=== PATIENT | male | born 1960 | race Caucasian/White ===

== ENCOUNTER 2017-02-08 13:27 | Inpatient (IN) | payer MEDICAID ==
--- NOTE | 2017-02-08 13:28 | EDPHY ---
H & P Constitutional: Initial Vital Signs Temperature (C) 37.8 C 02/08/17 13:28 Heart Rate 109 H 02/08/17 13:28 Respiratory Rate 22 H 02/08/17 13:28 Blood Pressure 156/78 H 02/08/17 13:28 O2 Sat (%) 80 L 02/08/17 13:28 O2 Delivery Mode Non-Rebreather Mask O2 (L/minute) 15 Allergies/Adverse Reactions: No Known Allergies Allergy (Unverified 08/09/16 18:41) Home Medications: Medication Instructions Recorded Albuterol Hfa Anes Only [Proair 2 puffs IH QID PRN #1 mdi 08/09/16 Hfa Anes Only] Azithromycin [Zithromax 250 mg 250 mg PO DAILY #6 tab 08/09/16 tab(RX)] Haldol 08/09/16 [place] Carbonate 08/09/16 Toradol 08/09/16 predniSONE 20 mg PO DAILY #11 tab 08/09/16 Medical Decision Making - Diagnostics Imaging: Discussed imaging studies w/ call center nurse Radiologist, I viewed and interpreted images myself - Diagnostics Imaging Results: Imaging Impressions Head CT 02/08/17 13:33 Impression: 1. Less than optimal study due to patient motion. Consider repeating this study when the patient is clinically able. 2. Small ventricular system raises the possibility of diffuse cerebral edema. 3. Bilateral exophthalmos, likely related to abundant intraorbital fat. 4. Right superior eyelid swelling. 5. Sinus disease. Results called to Dr. Andi West at 2:23 PM General information for patients regarding this examination can be found at [email or web address] If you have questions or comments about this report, please contact me at (hospital) or [phone] (cell). Chest X-Ray 02/08/17 14:29 Impression: 1. Less than optimal exam. Cannot exclude early CHF with interstitial pulmonary edema. Cannot exclude early left basilar pneumonia or mediastinal widening. The trachea appears thin and nodular. Does the patient have difficulty breathing? Results discussed with Dr. Andi West at 15:04 PM Procedures: Procedure: Conscious sedation. Indication: Lumbar puncture, altered mental status The patient is an appropriate candidate to tolerate procedural sedation. The patient's vital signs and mental status are appropriate. The risks, benefits and alternatives of the sedation were discussed with the patient. The patient is ASA classification 2. The patient's Mallampati airway score was 3 and the patient [did] meet the 3-3-2 airway measurements. A time out was completed. The patient was sedated with 100 mg of ketamine. The patient was monitored with continuous pulse oximetry, classroom monitor and end tidal CO2. [There were no complications and no significant hypoxemia.] I performed [both the sedation and the procedure.] The total time I spent at the bedside during the procedural sedation was 18 minutes minutes. The patient was examined after the procedural sedation and has returned to their pre-sedation baseline. Procedure: Lumbar puncture. Indication: Altered mental status, rule out meningitis After verbal informed consent from patient explaining the risks including infection, bleeding, and neurologic damage, a lumbar puncture was performed after the patient was prepped and draped in the usual fashion. The back was anesthetized with 1% lidocaine. Approximately 4 cc of clear fluid was obtained. Opening pressure [was not] obtained. There were no complications. The procedure was performed by myself. (Ryland West) ED Course/Re-evaluation: CHIEF COMPLAINT: Altered mental status HISTORY OF PRESENT ILLNESS: The patient is a 56 y/o male arriving via EMS after he was found outside psychiatric facility with altered mentation. He refused to speak with EMS throughout their contact, but would follow commands without issue. EMS noted a cough and SpO2 around 80%, which improved after a duo neb. They gave Narcan without any change in status. He appears somnolent and is noncontributory during assessment. REVIEW OF SYSTEMS: A 10 point review of systems was performed and is negative with the exception of the elements mentioned in the history of present illness. PHYSICAL EXAM: General Appearance: Somnolent, malodorous, unkempt, nonverbal. Head: Atraumatic without scalp tenderness or obvious injury Eyes: Pupils equal, round, reactive to light and accommodation, EOMI, no trauma , no injection. Ears: Clear bilaterally, no perforation, normal landmarks Nose: Atraumatic, no rhinorrhea, clear. Throat: There is no erythema or exudates, no lesions, normal tonsils, mucus membranes moist. Neck: Supple, nontender, no lymphadenopathy. Respiratory: No retractions, no distress, no wheezes, and no accessory muscle use. Lungs are clear to auscultation bilaterally. Cardiovascular: Regular rate and rhythm, no murmurs, rubs, or gallops. Good capillary refill all extremities. Gastrointestinal: Abdomen is soft, nontender, non-distended, no masses, no rebound, no guarding, no peritoneal signs. Musculoskeletal: Normal active ROM of all extremities, atraumatic. Neurological: Will follow commands, but is not speaking. Moving all 4 extremities. Skin: No rashes, good turgor, no nodules on palpation. PAST MEDICAL HISTORY: Unknown PAST SURGICAL HISTORY: Unknown SOCIAL HISTORY: Unknown. Appears homeless. Found outside psychiatric facility. DIFFERENTIAL DIAGNOSIS: The differential diagnosis for the patient's altered mental status included but was not limited to hypoglycemia, infectious process, electrolyte abnormality, head injury, neurologic process, anemia, cardiac process, and intoxicants. MEDICAL DECISION MAKING: This is an unkempt 56 y/o male who presents with altered mentation. He will follow commands, but is currently non-verbal and somnolent. Plan for full AMS work up including labs, UA, tox screen, and head CT. RN states patient is unable to sit or lie still. IV Versed administered. Hct elevated at 58, which could indicate dehydrations. Patient care signed over to Dr. West at shift change pending lab and imaging results. ([employer] De [employer]) Differential Diagnosis: Differential diagnosis considered includes stroke, intracranial hemorrhage, medication side effect, rhabdomyolysis, meningitis, encephalitis, pneumonia, sepsis, severe sepsis (Ryland West) Other Provider: I assumed care of the patient at 2:00 p.m. The patient was evaluated by Dr. De Leon who ordered a number of test. The [place] I [place] [id number]. The patient had a CT scan of the head which was nondiagnostic secondary to motion artifact. There was small ventricles noted, no obvious hemorrhage was present. Images reviewed by myself and discussed with radiologist Dr. Carlos. I reviewed the results of the head CT scan with our on-call neurosurgeon Dr. Condon who feels that there is no evidence of critical increased ICP present and there is not a contraindication to perform a lumbar puncture. Chest x-ray confirms the possibility of fluid overload verses a left lower lobe infiltrate. I ordered an ABG and interpreted that. The patient does have a respiratory acidosis. I have ordered that BiPAP be started on the patient. Secondary to the patient's altered mental status and encephalopathy. I did perform a lumbar puncture to evaluate for meningitis. This was performed by myself after the patient received conscious sedation with ketamine. The patient did receive IV ceftriaxone and vancomycin. The patient will require admission to the intensive care unit for further evaluation of his critical encephalopathy. Critical care time exclusive of procedures and exclusive of the PA's time was 45 minutes, performed by myself, Ryland West MD. (Ryland West) - Data Points Laboratory Results: Laboratory Results 02/08/17 13:35 02/08/17 13:35 02/08/17 02/08/17 02/08/17 14:06 13:39 13:35 WBC RBC Hgb POC Hgb 19.7 gm/dL H gm/dL (13.7-17.5) Hct POC Hct 58 % H % (40-51) MCV MCH MCHC RDW Plt Count MPV Neut % (Auto) Lymph % (Auto) [place] % (Auto) Eos % (Auto) Baso % (Auto) Nucleat RBC Rel Count Absolute Neuts (auto) Absolute Lymphs (auto) Absolute Monos (auto) Absolute Eos (auto) Absolute Basos (auto) Absolute Nucleated RBC Immature Gran % Seg Neutrophils % Band Neutrophils % Lymphocytes % Monocytes % Eosinophils % Metamyelocytes % Immature Gran # Absolute Seg Neuts Absolute Band Neuts Absolute Lymphocytes Absolute Monocytes Absolute Eosinophils Absolute Metamyelocyte Toxic Granulation Platelet Estimate Polychromasia Oval Macrocytes PT INR APTT VBG Lactic Acid 0.9 mmol/L mmol/L (0.7-2.1) POC Sodium 149 mEq/L H mEq/L (134-144) Sodium POC Potassium 4.1 mEq/L mEq/L (3.3-5.0) Potassium POC Chloride 106 mEq/L mEq/L (97-110) Chloride Carbon Dioxide Anion Gap POC BUN 15 mg/dL mg/dL (7-23) BUN Creatinine POC Creatinine 1.4 mg/dL H mg/dL (0.7-1.3) Estimated GFR Glucose POC Glucose 155 mg/dL H mg/dL (70-100) Calcium Total Bilirubin Conjugated Bilirubin Unconjugated Bilirubin AST ALT Alkaline Phosphatase Creatine Kinase Total Protein Albumin TSH Cancelled [place] Ethyl Alcohol 02/08/17 02/08/17 02/08/17 13:35 13:35 13:35 WBC RBC Hgb POC Hgb Hct POC Hct MCV MCH MCHC RDW Plt Count MPV Neut % (Auto) Lymph % (Auto) [place] % (Auto) Eos % (Auto) Baso % (Auto) Nucleat RBC Rel Count Absolute Neuts (auto) Absolute Lymphs (auto) Absolute Monos (auto) Absolute Eos (auto) Absolute Basos (auto) Absolute Nucleated RBC Immature Gran % Seg Neutrophils % Band Neutrophils % Lymphocytes % Monocytes % Eosinophils % Metamyelocytes % Immature Gran # Absolute Seg Neuts Absolute Band Neuts Absolute Lymphocytes Absolute Monocytes Absolute Eosinophils Absolute Metamyelocyte Toxic Granulation Platelet Estimate Polychromasia Oval Macrocytes PT 13.4 SEC SEC (12.0-15.0) INR 1.03 (0.83-1.16) APTT 27.8 SEC SEC (23.0-38.0) VBG Lactic Acid POC Sodium Sodium POC Potassium Potassium POC Chloride Chloride Carbon Dioxide Anion Gap POC BUN BUN Creatinine POC Creatinine Estimated GFR Glucose POC Glucose Calcium Total Bilirubin Conjugated Bilirubin Unconjugated Bilirubin AST ALT Alkaline Phosphatase Creatine Kinase 175 IU/L IU/L (0-224) Total Protein Albumin TSH [place] 0.5 mEq/L L mEq/L (0.6-1.2) Ethyl Alcohol 02/08/17 02/08/17 13:35 13:35 WBC 26.67 10^3/uL H 10^3/uL (3.80-9.50) RBC 5.73 10^6/uL 10^6/uL (4.40-6.38) Hgb 17.7 g/dL H g/dL (13.7-17.5) POC Hgb Hct 56.7 % H % (40.0-51.0) POC Hct MCV 99.0 fL fL (81.5-99.8) MCH 30.9 pg pg (27.9-34.1) MCHC 31.2 g/dL L g/dL (32.4-36.7) RDW 13.7 % % (11.5-15.2) Plt Count 286 10^3/uL 10^3/uL (150-400) MPV 11.3 fL fL (8.7-11.7) Neut % (Auto) Not Reported Lymph % (Auto) Not Reported [place] % (Auto) Not Reported Eos % (Auto) Not Reported Baso % (Auto) Not Reported Nucleat RBC Rel Count 0.2 % % (0.0-0.2) Absolute Neuts (auto) Not Reported Absolute Lymphs (auto) Not Reported Absolute Monos (auto) Not Reported Absolute Eos (auto) Not Reported Absolute Basos (auto) Not Reported Absolute Nucleated RBC 0.06 10^3/uL H 10^3/uL (0-0.01) Immature Gran % Not Reported Seg Neutrophils % 87 % % Band Neutrophils % 2 % % Lymphocytes % 6 % % Monocytes % 2 % % Eosinophils % 1 % % Metamyelocytes % 2 % % Immature Gran # Not Reported Absolute Seg Neuts 23.20 10^/uL H 10^/uL (1.70-6.50) Absolute Band Neuts 0.53 10^3/uL 10^3/uL (0.00-0.70) Absolute Lymphocytes 1.60 10^3/uL 10^3/uL (1.00-3.00) Absolute Monocytes 0.53 10^3/uL 10^3/uL (0.30-0.80) Absolute Eosinophils 0.27 10^3/uL 10^3/uL (0.03-0.40) Absolute Metamyelocyte 0.53 10^3/mL H 10^3/mL (0.00-0.00) Toxic Granulation PRESENT H Platelet Estimate ADEQUATE (ADEQ) Polychromasia 1+ H Oval Macrocytes 1+ H PT INR APTT VBG Lactic Acid POC Sodium Sodium 147 mEq/L H mEq/L (134-144) POC Potassium Potassium 4.2 mEq/L mEq/L (3.5-5.2) POC Chloride Chloride 108 mEq/L mEq/L (97-110) Carbon Dioxide 27 mEq/l mEq/l (22-31) Anion Gap 12 mEq/L mEq/L (8-16) POC BUN BUN 14 mg/dL mg/dL (7-23) Creatinine 1.4 mg/dL H mg/dL (0.7-1.3) POC Creatinine Estimated GFR 52 Glucose 144 mg/dL H mg/dL (70-100) POC Glucose Calcium 10.1 mg/dL mg/dL (8.5-10.4) Total Bilirubin 0.7 mg/dL mg/dL (0.1-1.4) Conjugated Bilirubin 0.6 mg/dL H mg/dL (0.0-0.5) Unconjugated Bilirubin 0.1 mg/dL mg/dL (0.0-1.1) AST 28 IU/L IU/L (17-59) ALT 53 IU/L IU/L (21-72) Alkaline Phosphatase 136 IU/L H IU/L (38-126) Creatine Kinase Total Protein 7.4 g/dL g/dL (6.3-8.2) Albumin 4.4 g/dL g/dL (3.5-5.0) TSH 0.622 uIU/mL uIU/mL (0.465-4.680) [place] Ethyl Alcohol < 10 mg/dL mg/dL (0-10) Medications Given: Discontinued Medications Sodium Chloride (Ns) 1,000 mls @ 0 mls/hr IV ONCE ONE; Wide Open PRN Reason: Protocol Stop: 02/08/17 13:32 Last Admin: 02/08/17 13:31 Dose: 1,000 mls Ceftriaxone Sodium 2 gm/ (Dextrose) 50 mls @ 100 mls/hr IV EDNOW ONE PRN Reason: Protocol Stop: 02/08/17 14:55 Last Admin: 02/08/17 15:01 Dose: 50 mls Vancomycin/Sodium Chloride (Vancomycin 1 Gm (Premix)) 250 mls @ 250 mls/hr IV EDNOW ONE PRN Reason: Protocol Stop: 02/08/17 15:25 Last Admin: 02/08/17 14:30 Dose: 250 mls Midazolam HCl (Versed) 2 mg IVP EDNOW ONE Stop: 02/08/17 14:12 Last Admin: 02/08/17 14:17 Dose: 2 mg Point of Care Test Results: 02/08/17 13:39 POC Sodium 149 H POC Potassium 4.1 POC Chloride 106 POC BUN 15 POC Creatinine 1.4 H POC Glucose 155 H Departure - Departure Disposition: [facility] Acute Clinical Impression: Pneumonia, Hypoxemia, Bipolar mood disorder Altered mental status Qualifiers: Altered mental status type: unspecified Qualified Code(s): R41.82 - Altered mental status, unspecified Condition: Critical Report Scribed for: [employer] De Leon Report Scribed by: Lorenza Swanson Time of Report: 13:40
[2017-02-08] MEDS ORDERED: NS 1,000 ML IV ONE ×3 (13:31→18:30)
--- NOTE | 2017-02-08 13:43 | CPEKG ---
Heart Rate: 107 RR Interval: 561 P-R Interval: 188 QRSD Interval: 122 QT Interval: 352 QTC Interval: 470 P Alvo: 59 QRS [place]: 96 T Wave [place]: 22 EKG Severity - ABNORMAL ECG - EKG Impression: SINUS TACHYCARDIA EKG Impression: ABERRANT COMPLEX, POSSIBLY SUPRAVENTRICULAR EKG Impression: RBBB AND LPFB Electronically Signed By: [employer] De Leon 08-Feb-2017 14:01:43
[2017-02-08] MEDS ORDERED: MIDAZOLAM 2 MG/2 ML VIAL ONE (13:44)
[2017-02-08 13:55] LABS: ABSOLUTE NRBC COUNT 0.06 10^3/uL (0-0.01); ADD DIFF? YES; ADD MORPH? NO; ADD SCAN? NO; ATYPICAL LYMPHOCYTE FLAG 10 (0-99); FRAGMENT RBC FLAG 0 (0-99); HEMATOCRIT 56.7 % (40.0-51.0); HEMOGLOBIN 17.7 g/dL (13.7-17.5); LEFT SHIFT FLG 40 (0-99); LIPEMIA HEMOLYSIS FLAG 80 (0-99); MEAN CELL HEMOGLOBIN 30.9 pg (27.9-34.1); MEAN CELL HEMOGLOBIN CONCENTR. 31.2 g/dL (32.4-36.7); MEAN PLATELET VOLUME 11.3 fL (8.7-11.7); NRBC-AUTO% 0.2 % (0.0-0.2); PLATELET CLUMPS FLAG 10 (0-99); PLATELET COUNT 286 10^3/uL (150-400); RED BLOOD CELL COUNT 5.73 10^6/uL (4.40-6.38); RED CELL DISTRIBUTION WIDTH 13.7 % (11.5-15.2)
[2017-02-08 14:04] LABS: INR 1.03 (0.83-1.16); PROTIME(PATIENT) 13.4 SEC (12.0-15.0)
[2017-02-08 14:05] LABS: APTT 27.8 SEC (23.0-38.0)
[2017-02-08 14:06] LABS: LITHIUM 0.5 mEq/L (0.6-1.2)
[2017-02-08 14:08] LABS: ALANINE AMINOTRANSFERASE 53 IU/L (21-72); ALBUMIN 4.4 g/dL (3.5-5.0); ALKALINE PHOSPHATASE 136 IU/L (38-126); ANION GAP 12 mEq/L (8-16); ASPARTATE AMINOTRANSFERASE 28 IU/L (17-59); BILIRUBIN,TOTAL 0.7 mg/dL (0.1-1.4); BILIRUBIN-CONJUGATED 0.6 mg/dL (0.0-0.5); BILIRUBIN-UNCONJUGATED 0.1 mg/dL (0.0-1.1); CALCIUM 10.1 mg/dL (8.5-10.4); CARBON DIOXIDE 27 mEq/l (22-31); CHLORIDE 108 mEq/L (97-110); CREATININE 1.4 mg/dL (0.7-1.3); ETHANOL SERUM < 10 mg/dL (0-10); GLOMERULAR FILTRATION RATE 52; GLUCOSE 144 mg/dL (70-100); POTASSIUM 4.2 mEq/L (3.5-5.2); SODIUM 147 mEq/L (134-144); TOTAL PROTEIN 7.4 g/dL (6.3-8.2)
[2017-02-08] MEDS ORDERED: MIDAZOLAM 2 MG/2 ML VIAL IVP ONE ×2 (14:11→18:15)
[2017-02-08] MEDS ORDERED: cefTRIAXone 2 GM in D5W 50 ML IV ONE (14:26)
[2017-02-08] MEDS ORDERED: VANCOMYCIN HCL/NORMAL SALINE 250 ML IV ONE (14:26)
[2017-02-08 14:46] LABS: MACROCYTES 1+; PLATELET ESTIMATE ADEQUATE (ADEQ); POLYCHROMASIA 1+; TOXIC GRANULATION PRESENT
[2017-02-08] MEDS ORDERED: KETAMINE 100 MG/10 ML SYR ONE ×2 (14:52→15:25)
[2017-02-08] MEDS ORDERED: KETAMINE 100 MG/10 ML SYR IVP ONE (15:05)
[2017-02-08 15:09] LABS: BASE EXCESS -2.4 mEq/L (-2.5-2.5); BICARBONATE 29 mEq/L (22-26); MEASURED OXYGEN SATURATION 97 % (92-95); PO2 97 mmHg (65-75); TCO2 31 mEq/L (23-27)
[2017-02-08 15:13] LABS: PCO2 78 mmHg (34-38)
[2017-02-08] MEDS ORDERED: KETAMINE 500 MG/10 ML VIAL IVP ONE (15:25)
[2017-02-08 15:56] LABS: PROTEIN, CSF 37 mg/dL (12-60)
[2017-02-08] MEDS ORDERED: ACETAMINOPHEN 650 MG SUPP PR PRN (16:02)
[2017-02-08 16:06] LABS: COLOR YELLOW; LEUKOCYTE ESTERASE,URINE NEGATIVE (NEGATIVE); NITRITE,URINE NEGATIVE (NEGATIVE)
[2017-02-08] MEDS ORDERED: ALBUTEROL 3 ML DEYVIAL IH PRN (16:06)
[2017-02-08 16:13] LABS: BACTERIA TRACE /hpf (NONE SEEN); MUCUS TRACE /lpf (NONE-1+)
[2017-02-08] MEDS ORDERED: NS 1,000 ML IV SCH (16:15)
[2017-02-08 16:16] LABS: CSF APPEARANCE CLEAR (CLEAR); CSF COLOR COLORLESS (COLORLESS); CSF SUPERNATANT COLORLESS (COLORLESS); WBC, CSF 0 /mm3 (0-5); WBC, CSF 5 /mm3 (0-5)
[2017-02-08 16:58] LABS: BASE EXCESS -4.1 mEq/L (-2.5-2.5); BICARBONATE 28 mEq/L (22-26); MEASURED OXYGEN SATURATION 97 % (92-95); PO2 102 mmHg (65-75); TCO2 31 mEq/L (23-27)
[2017-02-08 17:00] LABS: BIPAP YES; EXP PRESSURE 8; INSP PRESSURE 18; O2 CONCENTRATIION 75 % (0-100); P/F RATIO 136 RATIO
[2017-02-08] MEDS: IPRATROPIUM/ALBUTEROL 3 ML DEYVIAL IH SCH (17:00)
[2017-02-08 17:02] LABS: PCO2 85 mmHg (34-38)
[2017-02-08 17:02] LABS: TROPONIN I 0.081 ng/mL (0-0.034)
[2017-02-08] MEDS ORDERED: LIDOCAINE 1% 300 MG/30 ML SDV ONE (17:20)
[2017-02-08] MEDS ORDERED: LIDOCAINE 2% JELLY 5 ML TUBE ONE (17:20)
[2017-02-08] MEDS ORDERED: ALTEPLASE 2 MG VIAL IVP PRN (17:51)
[2017-02-08] MEDS ORDERED: PIPERACILLIN/TAZO 3.375 GM/DEX 50 ML IV SCH (18:00)
[2017-02-08] MEDS: PROPOFOL/EMULSION 100 ML IV SCH (18:13)
[2017-02-08] MEDS: fentaNYL/NACL 100 ML IV SCH (18:13)
[2017-02-08] MEDS ORDERED: fentaNYL 100 MCG/2 ML INJ IVP ONE (18:15)
[2017-02-08] MEDS ORDERED: LIDOCAINE 1% 300 MG/30 ML SDV MISC ONE (18:22)
[2017-02-08] MEDS ORDERED: LIDOCAINE 2% JELLY 5 ML TUBE TP ONE (18:22)
--- NOTE | 2017-02-08 18:28 | PDGENHP ---
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 Patient remains unresponsive and altered at the time of my evaluation and therefore entire history is obtained per chart review and hx obtained from EMT and ED. Apparently when EMT arrived to assess patient he was found to be hypoxic to 80%, somnolent and minimally responsive. He was following commands at that time and moving spontaneously as well as protecting his airway. In the ER he remained somnolent, unresponsive, intermittently agitated. He was noted to have diffuse infiltrates on cxr and wbc of 26K. He was started on abx, and given his continued MS changes, an LP was performed. Blood gas was revealing for PCO2 of 75, he was transferred to ICU on Bipap. Repeat ABG after 1 hour on bipap showed PCO2 of 85 and worsening mental status, no longer protecting his airway and noted to be much more somnolent after receiving sedation for the LP. Patient required urgent intubation and bronchoscopy by Dr. Macdonald at that point. During the bronch it was noted that patients epiglottis was edematous and somewhat friable and thick secretions were present as well. History Information - Allergies/Home Medication List Allergies/Adverse Reactions: No Known Allergies Allergy (Unverified 08/09/16 18:41) Home Medications: Haldol 08/09/16 [Last Taken Unknown] Gargatha Carbonate 08/09/16 [Last Taken Unknown] Toradol 08/09/16 [Last Taken Unknown] I have personally reviewed and updated: family history, medical history, social history, surgical history - Past Medical History psychiatric history (schizophrenia/bipolar) Additional medical history: congenital deafness. RAD vs copd - Surgical History Additional surgical history: not available per chart review - Family History Additional family history: unavailable per chart review - Social History Smoking Status: Heavy smoker Additional social history: unable to obtain, reportedly homeless, unknown if drug/alcohol hx Review of Systems Review of Systems: unobtainable 2/2 patients mental status Physical Exam Temp Pulse Resp BP Pulse Ox 37.7 C 73 20 147/77 H 100 02/08/17 16:00 02/08/17 16:00 02/08/17 16:00 02/08/17 16:00 02/08/17 16:00 O2 (L/minute) [Post Procedure 10 1st] O2 (L/minute) [Procedural 5th] 15 O2 (L/minute) [Procedural 4th] 15 O2 (L/minute) [Procedural 3rd] 15 O2 (L/minute) [Procedural 2nd] 15 O2 (L/minute) [Procedural 1st] 15 O2 (L/minute) [.Immediate Pre- 10 Procedure] O2 (L/minute) 15 FIO2 (%) 100 Constitutional: obese, uncomfortable, unkempt Eyes: anicteric sclera, scleral injection, other (proptosis ) Ears, Nose, Mouth, Throat: moist mucous membranes, poor dentition Cardiovascular: regular rate and rhythym, no murmur, rub, or gallop, edema Respiratory: reduced air movement, expiratory wheeze, respiratory distress Gastrointestinal: normoactive bowel sounds, soft, non-tender abdomen Genitourinary: no bladder tenderness, bonilla in urethra, other (normal external male genitalia) Skin: warm, normal color, other (varicose veins to thighs) Musculoskeletal: full muscle strength, No asymmetric calves Neurologic: other (prior to sedation moving all 4, responding to commands), No AAOx3 Lab Data & Imaging Review 02/08/17 13:35 02/08/17 13:35 WBC 26.67 10^3/uL (3.80-9.50) H 02/08/17 13:35 RBC 5.73 10^6/uL (4.40-6.38) 02/08/17 13:35 Hgb 17.7 g/dL (13.7-17.5) H 02/08/17 13:35 POC Hgb 19.7 gm/dL (13.7-17.5) H 02/08/17 13:39 Hct 56.7 % (40.0-51.0) H 02/08/17 13:35 POC Hct 58 % (40-51) H 02/08/17 13:39 MCV 99.0 fL (81.5-99.8) 02/08/17 13:35 MCH 30.9 pg (27.9-34.1) 02/08/17 13:35 MCHC 31.2 g/dL (32.4-36.7) L 02/08/17 13:35 RDW 13.7 % (11.5-15.2) 02/08/17 13:35 Plt Count 286 10^3/uL (150-400) 02/08/17 13:35 MPV 11.3 fL (8.7-11.7) 02/08/17 13:35 Neut % (Auto) Not Reported 02/08/17 13:35 Lymph % (Auto) Not Reported 02/08/17 13:35 [place] % (Auto) Not Reported 02/08/17 13:35 Eos % (Auto) Not Reported 02/08/17 13:35 Baso % (Auto) Not Reported 02/08/17 13:35 Nucleat RBC Rel Count 0.2 % (0.0-0.2) 02/08/17 13:35 Absolute Neuts (auto) Not Reported 02/08/17 13:35 Absolute Lymphs (auto) Not Reported 02/08/17 13:35 Absolute Monos (auto) Not Reported 02/08/17 13:35 Absolute Eos (auto) Not Reported 02/08/17 13:35 Absolute Basos (auto) Not Reported 02/08/17 13:35 Absolute Nucleated RBC 0.06 10^3/uL (0-0.01) H 02/08/17 13:35 Immature Gran % Not Reported 02/08/17 13:35 Seg Neutrophils % 87 % 02/08/17 13:35 Band Neutrophils % 2 % 02/08/17 13:35 Lymphocytes % 6 % 02/08/17 13:35 Monocytes % 2 % 02/08/17 13:35 Eosinophils % 1 % 02/08/17 13:35 Metamyelocytes % 2 % 02/08/17 13:35 Immature Gran # Not Reported 02/08/17 13:35 Absolute Seg Neuts 23.20 10^/uL (1.70-6.50) H 02/08/17 13:35 Absolute Band Neuts 0.53 10^3/uL (0.00-0.70) 02/08/17 13:35 Absolute Lymphocytes 1.60 10^3/uL (1.00-3.00) 02/08/17 13:35 Absolute Monocytes 0.53 10^3/uL (0.30-0.80) 02/08/17 13:35 Absolute Eosinophils 0.27 10^3/uL (0.03-0.40) 02/08/17 13:35 Absolute Metamyelocyte 0.53 10^3/mL (0.00-0.00) H 02/08/17 13:35 Toxic Granulation PRESENT H 02/08/17 13:35 Platelet Estimate ADEQUATE (ADEQ) 02/08/17 13:35 Polychromasia 1+ H 02/08/17 13:35 Oval Macrocytes 1+ H 02/08/17 13:35 PT 13.4 SEC (12.0-15.0) 02/08/17 13:35 INR 1.03 (0.83-1.16) 02/08/17 13:35 APTT 27.8 SEC (23.0-38.0) 02/08/17 13:35 Puncture Site LEFT BRACHIAL 02/08/17 16:50 Patient Temperature 37.0 DEGREES 02/08/17 16:50 pCO2 85 mmHg (34-38) H* 02/08/17 16:50 pO2 102 mmHg (65-75) H 02/08/17 16:50 Total CO2 31 mEq/L (23-27) H 02/08/17 16:50 ABG pH 7.15 (7.35-7.45) L* 02/08/17 16:50 ABG PO2/FiO2 Ratio 136 RATIO 02/08/17 16:50 ABG HCO3 28 mEq/L (22-26) H 02/08/17 16:50 ABG O2 Saturation 97 % (92-95) H 02/08/17 16:50 ABG Base Excess -4.1 mEq/L (-2.5-2.5) L 02/08/17 16:50 VBG Lactic Acid 0.9 mmol/L (0.7-2.1) 02/08/17 14:06 Total O2 Concentration 15.0 LITERS 02/08/17 14:48 O2 Concentration % 75 % (0-100) 02/08/17 16:50 Expiratory Pressure 8 02/08/17 16:50 Inspiratory Pressure 18 02/08/17 16:50 Mode BiPAP YES 02/08/17 16:50 POC Sodium 149 mEq/L (134-144) H 02/08/17 13:39 Sodium 147 mEq/L (134-144) H 02/08/17 13:35 POC Potassium 4.1 mEq/L (3.3-5.0) 02/08/17 13:39 Potassium 4.2 mEq/L (3.5-5.2) 02/08/17 13:35 POC Chloride 106 mEq/L (97-110) 02/08/17 13:39 Chloride 108 mEq/L (97-110) 02/08/17 13:35 Carbon Dioxide 27 mEq/l (22-31) 02/08/17 13:35 Anion Gap 12 mEq/L (8-16) 02/08/17 13:35 POC BUN 15 mg/dL (7-23) 02/08/17 13:39 BUN 14 mg/dL (7-23) 02/08/17 13:35 Creatinine 1.4 mg/dL (0.7-1.3) H 02/08/17 13:35 POC Creatinine 1.4 mg/dL (0.7-1.3) H 02/08/17 13:39 Estimated GFR 52 02/08/17 13:35 Glucose 144 mg/dL (70-100) H 02/08/17 13:35 POC Glucose 155 mg/dL (70-100) H 02/08/17 13:39 Calcium 10.1 mg/dL (8.5-10.4) 02/08/17 13:35 Total Bilirubin 0.7 mg/dL (0.1-1.4) 02/08/17 13:35 Conjugated Bilirubin 0.6 mg/dL (0.0-0.5) H 02/08/17 13:35 Unconjugated Bilirubin 0.1 mg/dL (0.0-1.1) 02/08/17 13:35 AST 28 IU/L (17-59) 02/08/17 13:35 ALT 53 IU/L (21-72) 02/08/17 13:35 Alkaline Phosphatase 136 IU/L (38-126) H 02/08/17 13:35 Creatine Kinase 175 IU/L (0-224) 02/08/17 13:35 Troponin I 0.081 ng/mL (0-0.034) H 02/08/17 16:30 Total Protein 7.4 g/dL (6.3-8.2) 02/08/17 13:35 Albumin 4.4 g/dL (3.5-5.0) 02/08/17 13:35 TSH 0.622 uIU/mL (0.465-4.680) 02/08/17 13:35 Urine Color YELLOW 02/08/17 15:17 Urine Appearance CLEAR 02/08/17 15:17 Urine pH 6.0 (5.0-7.5) 02/08/17 15:17 Ur Specific [place] 1.005 (1.002-1.030) 02/08/17 15:17 Urine Protein NEGATIVE (NEGATIVE) 02/08/17 15:17 Urine Ketones NEGATIVE (NEGATIVE) 02/08/17 15:17 Urine Blood NEGATIVE (NEGATIVE) 02/08/17 15:17 Urine Nitrate NEGATIVE (NEGATIVE) 02/08/17 15:17 Urine Bilirubin NEGATIVE (NEGATIVE) 02/08/17 15:17 Urine Urobilinogen NEGATIVE EU (0.2-1.0) 02/08/17 15:17 Ur Leukocyte Esterase NEGATIVE (NEGATIVE) 02/08/17 15:17 Urine RBC 1-3 /hpf (0-3) 02/08/17 15:17 Urine WBC 1-3 /hpf (0-3) 02/08/17 15:17 Ur Epithelial Cells TRACE /lpf (NONE-1+) 02/08/17 15:17 Urine Bacteria TRACE /hpf (NONE SEEN) H 02/08/17 15:17 Hyaline Casts 1-5 /lpf (0-1) 02/08/17 15:17 Urine Mucus TRACE /lpf (NONE-1+) 02/08/17 15:17 Urine Glucose NEGATIVE (NEGATIVE) 02/08/17 15:17 CSF Tube Number 1 02/08/17 15:30 CSF Appearance CLEAR (CLEAR) 02/08/17 15:30 CSF Color COLORLESS (COLORLESS) 02/08/17 15:30 CSF Supernatant COLORLESS (COLORLESS) 02/08/17 15:30 CSF WBC 5 /mm3 (0-5) 02/08/17 15:30 CSF RBC 58 /mm3 (0-0) H 02/08/17 15:30 CSF Neutrophils % 6 % (0-6) 02/08/17 15:30 CSF Lymphocytes % 40 % (0-100) 02/08/17 15:30 CSF Monos/Macrophage % 54 % (0-45) H 02/08/17 15:30 CSF Glucose 107 mg/dL (50-75) H 02/08/17 15:30 CSF Total Protein 37 mg/dL (12-60) 02/08/17 15:30 Urine Opiates Screen NEGATIVE (NEGATIVE) 02/08/17 15:17 Urine Barbiturates NEGATIVE (NEGATIVE) 02/08/17 15:17 Ur Phencyclidine Scrn NEGATIVE (NEGATIVE) 02/08/17 15:17 Ur Amphetamine Screen NEGATIVE (NEGATIVE) 02/08/17 15:17 U Benzodiazepines Scrn NEGATIVE (NEGATIVE) 02/08/17 15:17 Gargatha 0.5 mEq/L (0.6-1.2) L 02/08/17 13:35 Urine Cocaine Screen NEGATIVE (NEGATIVE) 02/08/17 15:17 U Marijuana (THC) Screen NEGATIVE (NEGATIVE) 02/08/17 15:17 Ethyl Alcohol < 10 mg/dL (0-10) 02/08/17 13:35 HSV Source Description Cancelled 02/08/17 15:30 HSV I DNA PCR Cancelled 02/08/17 15:30 HSV II DNA PCR Cancelled 02/08/17 15:30 Visualized and Interpreted Chest x-ray results: Yes Chest X-Ray results: infiltrate, other (limited exam but apparent bilateral interstitial edema vs infiltrate) Visualized and Interpreted imaging results: Yes Interpretation: head CT: small ventricles--? cerebral edema Visualized and Interpreted EKG results: Yes EKG Interpretation: Positive for: other (sinus tach, rbbb, lpfb) Assessment & Plan Assessment: 56 yo M with hx of schizophrenia, homelessness presenting with AMS and acute hypoxic/hypercarbic respiratory failure # acute hypoxic/hypercarbic respiratory failure: underlying etiology not entirely clear at this point but differential including pna, chf exacerbation, epiglottitis vs possible intoxication and mental status change leading to inability to protect airway. By OSH records patient has hx of RAD vs COPD as well likely contributing. He has now been intubated and bronch'ed--will repeat ABG now s/p intubation. Will get echo in am to determine if CHF contributing-- holding off on lasix given concurrent e/o sepsis # PNA: diffuse infiltrates noted on cxr, however this was a limited exam, also noted to have thick secretions on bronch with blood and sputum cultures currently pending. Has been started on ctx/vanc by ER and will continue for now. Can dc vanc so long as cultures negative for MRSA in coming days. # ? epiglottitis: as above, would be covered by ctx and cultures pending # acute encephalopathy: unclear what led to initial presentation of being altered--? respiratory distress versus sepsis vs intoxication though utox negative. He does have congenital deafness as well as underlying mental illness as well and hx of non compliance with psych meds also possibly contributing. Will monitor. Head CT limited by motion with ? of diffuse cerebral edema which would be at this point inconsistent with exam. If no improvement would repeat imaging in am. # severe sepsis: meeting sirs criteria and end organ dysfunction requiring intubation, however lactic acid normal and patient HD stable. Will check prolactin. # lauryn: in setting of above and presumably pre renal, IVF and recheck in am # leukocytosis: quite significantly high at 26K, will also check c diff, in setting of presumed infection as above # polycythemia: with long time smoking hx presumably 2/2 chronic hypoxia, trending # schizophrenia/bipolar: outside records reviewed and noted to have prior hx of med non compliance as well, unable to assess for decompensation currently # IP status, critically ill requiring emergent intubation and ICU level care Patient new to my care. Old records reviewed and summarized as above. Care plan reviewed with ER doctor and Dr. Villela. > 60 minutes of direct critical care time spent in evaluation/interpretation of labs, imaging, discussion with staff
[2017-02-08] MEDS: methylPREDNISolone SOD SUCC 125 MG/2 ML VIAL IVP SCH ×2 (18:32→23:45)
[2017-02-08] MEDS: NS 1,000 ML IV SCH ×2 (18:33→20:05)
[2017-02-08 19:27] LABS: T3 (TRIIODOTHYRONINE) TOTAL 1.19 ng/mL (0.970-1.690)
[2017-02-08] MEDS: CHLORHEXIDINE GLUCONATE 15 ML UDL PO SCH (20:09)
[2017-02-08 20:13] LABS: PROCALCITONIN 0.16 ng/mL (0.02-0.10)
[2017-02-08 20:29] LABS: BASE EXCESS -3.6 mEq/L (-2.5-2.5); BICARBONATE 26 mEq/L (22-26); MEASURED OXYGEN SATURATION 97 % (92-95); PCO2 67 mmHg (34-38); PO2 91 mmHg (65-75); SIMV YES; TCO2 28 mEq/L (23-27)
[2017-02-08 20:30] LABS: O2 CONCENTRATIION 100 % (0-100); P/F RATIO 91 RATIO; PATIENT RATE 20; PIP 20; PRESSURE SUPPORT 10
[2017-02-08] MEDS: ALBUTEROL 200 PUFFS/18 GM MDI IH SCH (20:34)
[2017-02-08] MEDS: FAMOTIDINE 20 MG/NACL 50 ML IV SCH (21:40)
[2017-02-08 22:34] LABS: ANION GAP 6 mEq/L (8-16); CALCIUM 8.7 mg/dL (8.5-10.4); CARBON DIOXIDE 27 mEq/l (22-31); CHLORIDE 114 mEq/L (97-110); CREATININE 1.6 mg/dL (0.7-1.3); GLOMERULAR FILTRATION RATE 45; GLUCOSE 151 mg/dL (70-100); POTASSIUM 4.8 mEq/L (3.5-5.2); SODIUM 147 mEq/L (134-144)
[2017-02-09] MEDS: PROPOFOL/EMULSION 100 ML IV SCH ×2 (00:13→07:47)
[2017-02-09] MEDS: ALBUTEROL 200 PUFFS/18 GM MDI IH SCH ×5 (00:20→16:46)
[2017-02-09] MEDS: fentaNYL/NACL 100 ML IV SCH (02:44)
[2017-02-09] MEDS ORDERED: VANCOMYCIN 1.25 GM in D5W 250 ML IV SCH (04:00)
--- NOTE | 2017-02-09 05:00 | GPN ---
[f rep st] PROCEDURE NOTE DATE OF PROCEDURE: 02/08/2017 PROCEDURE: Flexible fiberoptic bronchoscopy. REASON FOR THE PROCEDURE: Hypercapnic and hypoxemic respiratory failure with probable retained secr etions. DESCRIPTION OF PROCEDURE: The procedure was performed emergently with a patient who was unconscious and had no immediate family available, so implied consent was used. It was my assessment that due to the emergent nature of the procedure, to proceed in the patient's room. The patient was not move d to a negative pressure room. I do not feel that there was significant risk of airborne infection from the procedure. After an appropriate time-out, a bite block was placed between the patient's te eth and the bronchoscope was advanced through the bite block into the posterior pharynx. There was a moderate amount of purulent secretions in the posterior pharynx, some of which were emanating from between the vocal cords. These were suctioned. The patient's hypopharynx and epiglottis were some what indurated, and the epiglottis was quite thick and irregular. It was not particularly friable. After suctioning, I was unable to quickly intubate the patient, and saturations fell to as low as t he 40s, so a nasal airway was placed and he was bagged until saturations were up to the 80s. He had no significant blood pressure or heart rate changes. After he was bagged up to the upper 80s, I re introduced the bronchoscope several times, suctioned secretions, then identified the vocal cords and advanced the bronchoscope through the vocal cords. An 8.0 endotracheal tube was advanced bronchosc ope and was secured in place in the distal trachea. The patient was bagged and his oxygen saturatio ns avila to the mid 90s. I then examined all airways bilaterally, and found a moderate amount of pur ulent secretions in the right middle lobe and lower lobe. These were suctioned until clear. The ap propriate position of the endotracheal tube in the distal trachea was confirmed, and the bronchoscop e was removed. The patient's saturations remained in the upper 90s. No specimens were sent. The p atient received 4 mg of Versed and 100 mcg of fentanyl intravenously for analgesia and sedation. /[id number]/MODL
[2017-02-09] MEDS: methylPREDNISolone SOD SUCC 125 MG/2 ML VIAL IVP SCH ×4 (05:27→23:55)
[2017-02-09 05:55] LABS: ANION GAP 9 mEq/L (8-16); CALCIUM 8.7 mg/dL (8.5-10.4); CARBON DIOXIDE 23 mEq/l (22-31); CHLORIDE 114 mEq/L (97-110); CREATININE 1.6 mg/dL (0.7-1.3); GLOMERULAR FILTRATION RATE 45; GLUCOSE 187 mg/dL (70-100); POTASSIUM 4.3 mEq/L (3.5-5.2); SODIUM 146 mEq/L (134-144)
--- NOTE | 2017-02-09 06:02 | CPEKG ---
Heart Rate: 59 RR Interval: 1017 P-R Interval: 156 QRSD Interval: 112 QT Interval: 440 QTC Interval: 436 P [place]: 61 QRS [place]: 81 T Wave [place]: 51 EKG Severity - ABNORMAL ECG - EKG Impression: SINUS RHYTHM EKG Impression: INCOMPLETE RIGHT BUNDLE BRANCH BLOCK Electronically Signed By: Darren Milan 09-Feb-2017 19:39:26
[2017-02-09 06:19] LABS: BASE EXCESS -3.2 mEq/L (-2.5-2.5); BICARBONATE 24 mEq/L (22-26); MEASURED OXYGEN SATURATION 93 % (92-95); PCO2 53 mmHg (34-38); PO2 66 mmHg (65-75); TCO2 26 mEq/L (23-27)
[2017-02-09 06:21] LABS: O2 CONCENTRATIION 50 % (0-100); P/F RATIO 132 RATIO; SIMV YES
[2017-02-09 06:22] LABS: PIP 26; PRESSURE SUPPORT 10
[2017-02-09 06:52] LABS: ABSOLUTE NRBC COUNT 0.03 10^3/uL (0-0.01); ADD DIFF? YES; ADD MORPH? NO; ADD SCAN? YES; ATYPICAL LYMPHOCYTE FLAG 0 (0-99); FRAGMENT RBC FLAG 0 (0-99); HEMATOCRIT 46.5 % (40.0-51.0); HEMOGLOBIN 14.2 g/dL (13.7-17.5); LEFT SHIFT FLG 30 (0-99); LIPEMIA HEMOLYSIS FLAG 80 (0-99); MEAN CELL HEMOGLOBIN 30.9 pg (27.9-34.1); MEAN CELL HEMOGLOBIN CONCENTR. 30.5 g/dL (32.4-36.7); MEAN CELL VOLUME 101.1 fL (81.5-99.8); MEAN PLATELET VOLUME 11.3 fL (8.7-11.7); NRBC-AUTO% 0.2 % (0.0-0.2); PLATELET COUNT 168 10^3/uL (150-400); RED CELL DISTRIBUTION WIDTH 13.9 % (11.5-15.2)
[2017-02-09 06:53] LABS: PLATELET CLUMPS FLAG 300 (0-99)
[2017-02-09 07:15] LABS: PLATELET ESTIMATE ADEQUATE (ADEQ); POLYCHROMASIA 1+
[2017-02-09] MEDS: FAMOTIDINE 20 MG/NACL 50 ML IV SCH (07:47)
[2017-02-09] MEDS: ENOXAPARIN 40 MG/0.4 ML SYR SC SCH (07:47)
[2017-02-09] MEDS: NS 1,000 ML IV SCH (07:57)
[2017-02-09] MEDS: PANTOPRAZOLE SODIUM 40 MG in NS 100 ML IV SCH (08:21)
[2017-02-09] MEDS: cefTRIAXone 2 GM in D5W 50 ML IV SCH (09:13)
[2017-02-09] MEDS: CHLORHEXIDINE GLUCONATE 15 ML UDL PO SCH ×2 (09:13→19:42)
--- NOTE | 2017-02-09 09:26 | PDINTPN ---
[employer] Progress Note Assessment/Plan: Assessment: Acute Hypercapneic/hypoxemic respiratory failure: Intubated. Requiring high VE to clear CO2. Likely component of underlying COPD, ?pulmonary HTN/ALYSE as well as superimposed pneumonia, ? due to enterovirus. On CTX, Vanc, Myrna. Altered mental status: ? cause. Has underlying Bipolar D/O, probable dehydration. CSF unremarkable. ? epiglotittis: Visually not typical for bacterial, but was thickened and inflamed, as was the remainder of the hypohparynx. ? due to enterovirus or chronic inflammation from GERD or ALYSE. On appropriate antibiotics as well as steroids. JUAN MANUEL: Cr up, but good urine output with hydration. Likely pre-renal, ? component of ATN although initial U/A fairly bland. Leukocytosis: Improved Plan: Check Legionella urinary antigen. If negative, can probably stop Azithro. I've increased minute ventilation to try to normalize pH. 45 minutes CC time. 02/09/17 09:57 Subjective: Intubated, unresponsive Objective: Vital Signs Temp Pulse Resp BP Pulse Ox 36.8 C 69 26 H 108/67 95 02/09/17 09:00 02/09/17 09:00 02/09/17 09:00 02/09/17 09:00 02/09/17 09:00 Microbiology 02/09/17 00:34 Respiratory Panel (PCR) - Final Nasal, Sinus - Swab Human Rhinovirus/Enterovirus 02/08/17 18:00 - Final Sputum, Induced/Suctioned 02/08/17 15:30 Gram Stain - Final Cerebral Spinal Fluid Laboratory Results 02/09/17 06:38 02/09/17 05:24 02/08/17 02/09/17 02/10/17 05:59 05:59 05:59 Intake Total 4833 Output Total 1425 250 Balance 3408 -250 PT 13.4 SEC (12.0-15.0) 02/08/17 13:35 INR 1.03 (0.83-1.16) 02/08/17 13:35 Physical Exam - Physical Exam General Appearance: no apparent distress, No alert EENT: normal ENT inspection Neck: normal inspection Respiratory: lungs clear, normal breath sounds, No respiratory distress Cardiac/Chest: regular rate, rhythm, No edema Abdomen: normal bowel sounds, non-tender, soft Skin: normal color, warm/dry Extremities: normal inspection Neuro/Psych: No alert, No normal mood/affect, No oriented x 3, No motor weakness ICD10 Worksheet Patient Problems: Problems Problem Status Onset Altered mental status Acute Bipolar mood disorder Acute Hypoxemia Acute Pneumonia Acute
[2017-02-09] MEDS: AZITHROMYCIN IV 500 MG in D5W 250 ML IV SCH (09:55)
--- NOTE | 2017-02-09 10:14 | HOSPPROG ---
Hospitalist Progress Note Assessment/Plan: 56 yo M p/w acute encephalopathy 2/2 acute hypoxic and hypercapnic respiratory failure # acute hypoxic/hypercarbic respiratory failure: evidenced by pCO2 85, pH 7.15, SpO2 80% on room air, visible tachypnea and labored breathing, 2/2 suspected PNA - cont on vent - cont tx pulm conditions below # possible community acquired PNA: diffuse infiltrates noted on cxr w/ sepsis physiology, as well as profuse secretions on bronch - Cx pending - unclear if rhino/enterovirus contributing - D#2 CTX, D#1 Azithro # possible epiglottitis: edematous epiglottus on bronch and viral cx positive - currently intubated, protecting airway # acute encephalopathy: evidenced by global brain dysfunction characterized as complete unresponsiveness and then non-directible activity, acute change from his baseline, 2/2 metabolic effects of acidosis and hypercapnea - cont tx conditions - currently sedated on vent # severe sepsis: evidenced by tachycardia + tachypnea + leukocytosis + end- organ failure (JUAN MANUEL, resp failure, encephalopathy), resulting in autonomic dysregulation in setting of infxn, meeting SOFA/Sepsis-3 criteria - initial procalcitonin elevated, repeat if clinically worsening to detect whether bacterial infxn uncovered - cont IVF - broaden Abx # juan manuel: in setting of above and presumably 2/2 sev sepsis/hypovolemia, cont D5 1/ 2NS # polycythemia: with long time smoking hx presumably 2/2 chronic hypoxia, trending # schizophrenia/bipolar: outside records reviewed and noted to have prior hx of med non compliance as well, unable to assess for decompensation currently diet. npo ppx. high risk, hep sc code. full dispo. add uncertain, remains critically ill 35 minutes of critical care time spent at bedside with patient addressing issues above, remains critically ill w/ high risk morbidity/mortality. Subjective: Patient on vent, sedated, withdraws from stimulation Objective: Vital Signs Temp Pulse Resp BP Pulse Ox 36.8 C 84 26 H 108/67 95 02/09/17 09:00 02/09/17 09:00 02/09/17 09:00 02/09/17 09:00 02/09/17 09:00 Microbiology 02/09/17 00:34 Respiratory Panel (PCR) - Final Nasal, Sinus - Swab Human Rhinovirus/Enterovirus 02/08/17 18:00 - Final Sputum, Induced/Suctioned 02/08/17 15:30 Gram Stain - Final Cerebral Spinal Fluid Laboratory Results 02/09/17 06:38 02/09/17 05:24 02/08/17 02/09/17 02/10/17 05:59 05:59 05:59 Intake Total 4833 Output Total 1425 250 Balance 3408 -250 PT 13.4 SEC (12.0-15.0) 02/08/17 13:35 INR 1.03 (0.83-1.16) 02/08/17 13:35 - Physical Exam Constitutional: not in pain, chronically ill appearing, obese, No uncomfortable Cardiovascular: regular rate and rhythym, no murmur, rub, or gallop, No edema Respiratory: rhonchi (On inspiration), No expiratory wheeze, No bronchial breath sounds Gastrointestinal: normoactive bowel sounds, soft, non-tender abdomen, no palpable masses Neurologic: other (Intubated sedated, withdraws from physical stimulation) ICD10 Worksheet Patient Problems: Problems Problem Status Onset Altered mental status Acute Pneumonia Acute Hypoxemia Acute Bipolar mood disorder Acute
--- NOTE | 2017-02-09 10:36 | GCON ---
[f rep st] CONSULTATION PULMONARY/CRITICAL CARE CONSULTATION DATE OF CONSULTATION: 02/08/2017 REFERRING PHYSICIAN: Peng Sweet MD REASON FOR REFERRAL: Evaluation and management of respiratory failure. HISTORY: The patient is a 56-year-old homeless gentleman with a past medical history that includes bipolar disorder, congenital deafness, and COPD who was found minimally responsive outside of [facility]. He was brought to the emergency department and has not regained consciousness. T he patient was hypoxic with saturations in the 80s when he was initially found, but was following so me commands. In the emergency department, he was intermittently agitated. An LP was performed and the patient was brought to the intensive care unit. He had a respiratory acidosis. He was placed o n BiPAP and repeat arterial blood gas was performed, and that showed worsening respiratory acidosis so he was emergently intubated. PAST MEDICAL HISTORY: 1. Bipolar disorder. 2. Congenital deafness. MEDICATIONS: Include Haldol, lithium and Toradol. ALLERGIES: None. SOCIAL HISTORY: The patient is homeless. He is a smoker. FAMILY HISTORY: Unobtainable. REVIEW OF SYSTEMS: Unobtainable due to the patient's mental status. PHYSICAL EXAMINATION: GENERAL: The patient is now intubated and sedated. He was intermittently ag itated during the intubation. VITAL SIGNS: Blood pressure is 147/77 with a heart rate of 97. His oxygen saturations are 100%. He is afebrile. HEENT: Normocephalic and atraumatic. He is edentulo us. NECK: No adenopathy. Trachea is midline. CHEST: He has some scattered wheezes. CARDIAC: R egular rate and rhythm without murmur. ABDOMEN: Soft, nontender. Bowel sounds are present. EXTRE MITIES: No clubbing, cyanosis, or edema. NEURO: The patient was initially unresponsive to sternal rub on my exam. He was agitated and purposeful during intubation before getting sedation. He had good strength in all extremities when he was agitated. LABORATORY: Chemistry group shows a sodium of 149, with a potassium of 4.1, a creatinine is 1.4, gl ucose is 155. A white blood count is 26.7, hemoglobin is 19.7, platelet count is 286. Arterial blo od gas shows a pH of 7.15 with a pO2 of 102, a CO2 of 85, and a bicarbonate of 31 on BiPAP with pres sures of 18/8 and 75% oxygen. An INR is 1.0. A urine tox screen is negative. Sneads level is 0.5 . A CSF analysis shows 0 white blood cells, 36 red blood cells and a glucose of 107. Blood culture s negative/pending. A respiratory panel shows human rhinovirus/enterovirus. IMAGING: Chest x-ray shows some mild patchy infiltrate/atelectasis as well as vascular plethora and hypoventilation. A CT scan of the head shows some sinus disease, otherwise unremarkable. ASSESSMENT: 1. Acute hypoxemic and hypercapnic respiratory failure. This could be due to underlying chronic ob structive pulmonary disease as well as possibly pneumonia and congestive heart failure. He has been protecting his airway fairly well but was unable to maintain a normal pH so was intubated. The pat ient could have a component of pneumonia with some patchy infiltrates as well as purulent secretions on x-ray. He has been started on ceftriaxone for possible community-acquired pneumonia. 2. Altered mental status. Patient's LP is unremarkable. His hypercarbia could be contributing to this but seems it likely that there is another contributing cause. Tox screen is negative for any a pparent ingestions. 3. Possible epiglottitis. His epiglottis and hypopharynx were thickened with irregular mucosa, alt nelson not classic for bacterial epiglottitis, he could have a viral epiglottitis but the changes als o could be due to other irritants such as chronic reflux or obstructive sleep apnea. He is currentl y covered with ceftriaxone. 4. Acute kidney injury. This could be pre renal/dehydration, with an elevated sodium and hemoglobi n. He has already received some hydration. 5. Probable dehydration. This could be due to poor p.o. intake and could be exacerbated by nephrog enic diabetes insipidus induced by his lithium. RECOMMENDATIONS: 1. Add Legionella serology as well as azithromycin for possible atypical pneumonia. 2. Continue ceftriaxone and vancomycin. 3. Continue mechanical ventilation until the patient's gas exchange improves and he is able to prot ect his airway. 4. Consider repeat CT scan of the head. TIME SPENT: 50 minutes of critical care time exclusive of procedures, with multiple evaluations of this patient for his respiratory failure and altered mental status. /[id number]/MODL
[2017-02-09] MEDS: D5W 1/2 NS 1,000 ML IV SCH (10:40)
[2017-02-09 11:44] LABS: BASE EXCESS -2.4 mEq/L (-2.5-2.5); BICARBONATE 23 mEq/L (22-26); MEASURED OXYGEN SATURATION 94 % (92-95); O2 CONCENTRATIION 45 % (0-100); P/F RATIO 156 RATIO; PCO2 44 mmHg (34-38); PO2 70 mmHg (65-75); SIMV YES; TCO2 24 mEq/L (23-27)
[2017-02-09 11:45] LABS: END TIDAL CO2 36; PATIENT RATE 26; PRESSURE SUPPORT 10
[2017-02-09] MEDS: DEXMEDETOMIDINE HCL 400 MCG in NS 100 ML IV SCH ×3 (12:48→19:41)
[2017-02-09 13:53] LABS: BASE EXCESS -2.8 mEq/L (-2.5-2.5); BICARBONATE 24 mEq/L (22-26); MEASURED OXYGEN SATURATION 97 % (92-95); PCO2 52 mmHg (34-38); PO2 91 mmHg (65-75); TCO2 26 mEq/L (23-27)
[2017-02-09] MEDS: IPRATROPIUM/ALBUTEROL 3 ML DEYVIAL IH SCH ×2 (16:30→19:46)
[2017-02-09] MEDS: LORazepam 2 MG/ML INJ IVP PRN ×3 (17:15→22:30)
[2017-02-10] MEDS: DEXMEDETOMIDINE HCL 400 MCG in NS 100 ML IV SCH ×6 (01:48→22:06)
[2017-02-10] MEDS: IPRATROPIUM/ALBUTEROL 3 ML DEYVIAL IH SCH ×3 (03:23→17:07)
[2017-02-10 04:24] LABS: ABSOLUTE NRBC COUNT 0.02 10^3/uL (0-0.01); ADD DIFF? YES; ADD MORPH? NO; ADD SCAN? NO; ATYPICAL LYMPHOCYTE FLAG 0 (0-99); FRAGMENT RBC FLAG 0 (0-99); HEMATOCRIT 50.9 % (40.0-51.0); HEMOGLOBIN 15.6 g/dL (13.7-17.5); LEFT SHIFT FLG 20 (0-99); LIPEMIA HEMOLYSIS FLAG 80 (0-99); MEAN CELL HEMOGLOBIN 30.8 pg (27.9-34.1); MEAN CELL HEMOGLOBIN CONCENTR. 30.6 g/dL (32.4-36.7); MEAN CELL VOLUME 100.6 fL (81.5-99.8); MEAN PLATELET VOLUME 11.3 fL (8.7-11.7); NRBC-AUTO% 0.1 % (0.0-0.2); PLATELET CLUMPS FLAG 20 (0-99); PLATELET COUNT 190 10^3/uL (150-400); RED BLOOD CELL COUNT 5.06 10^6/uL (4.40-6.38)
[2017-02-10] MEDS: LORazepam 2 MG/ML INJ IVP PRN ×6 (04:27→19:36)
[2017-02-10 04:49] LABS: ANION GAP 8 mEq/L (8-16); CALCIUM 9.7 mg/dL (8.5-10.4); CARBON DIOXIDE 23 mEq/l (22-31); CHLORIDE 117 mEq/L (97-110); CREATININE 1.7 mg/dL (0.7-1.3); GLOMERULAR FILTRATION RATE 42; GLUCOSE 198 mg/dL (70-100); POTASSIUM 4.9 mEq/L (3.5-5.2); SODIUM 148 mEq/L (134-144)
[2017-02-10] MEDS: methylPREDNISolone SOD SUCC 125 MG/2 ML VIAL IVP SCH ×3 (05:04→17:04)
[2017-02-10] MEDS: D5W 1/2 NS 1,000 ML IV SCH (05:04)
[2017-02-10 05:31] LABS: MACROCYTES 1+; PLATELET ESTIMATE ADEQUATE (ADEQ)
[2017-02-10 06:14] LABS: BASE EXCESS -2.5 mEq/L (-2.5-2.5); BICARBONATE 24 mEq/L (22-26); MEASURED OXYGEN SATURATION 93 % (92-95); PCO2 47 mmHg (34-38); PO2 68 mmHg (65-75); TCO2 25 mEq/L (23-27)
[2017-02-10] MEDS: cefTRIAXone 2 GM in D5W 50 ML IV SCH (08:01)
[2017-02-10] MEDS: PANTOPRAZOLE SODIUM 40 MG in NS 100 ML IV SCH (08:01)
[2017-02-10] MEDS: AZITHROMYCIN IV 500 MG in D5W 250 ML IV SCH (08:02)
[2017-02-10] MEDS: ENOXAPARIN 40 MG/0.4 ML SYR SC SCH (08:02)
[2017-02-10] MEDS ORDERED: D5W 1/4 NS 1,000 ML IV SCH (08:45)
[2017-02-10] MEDS ORDERED: D50W 25 GM/50 ML SYR IVP PRN (10:22)
[2017-02-10] MEDS: HALOPERIDOL LACT 5 MG/ML INJ IVP PRN ×2 (11:35→19:35)
[2017-02-10 12:08] LABS: COLOR YELLOW; LEUKOCYTE ESTERASE,URINE NEGATIVE (NEGATIVE); NITRITE,URINE NEGATIVE (NEGATIVE)
[2017-02-10 12:18] LABS: MUCUS TRACE /lpf (NONE-1+)
[2017-02-10] MEDS: INSULIN REGULAR HUMAN 100 UNIT/ML SC SCH ×3 (12:36→21:30)
--- NOTE | 2017-02-10 14:07 | PDINTPN ---
Truck Manager Progress Note Assessment/Plan: Assessment: Resolved respiratory failure. The patient self-extubated late yesterday. Stable on 3 L. Bronchopneumonia: With bilateral pulmonary infiltrates. Respiratory failure resolved. On azithromycin and ceftriaxone COPD: Secondary to tobacco abuse. Severity unknown. Alcohol withdrawal: On CIWA protocol. Quite agitated if not significantly sedated. On Ativan as well as Precedex, Haldol. Encephalopathy: Multifactorial, largely secondary to 2. Acute renal failure. BUN and creatinine both up today. Will increase IV fluids. Urine output seems adequate. Hyperglycemia: Add sliding scale insulin coverage Homelessness GI prophylaxis: Pantoprazole DVT prophylaxis: None, will add. Plan: Continue care in the intensive care unit. Increase intravenous fluids. Add enoxaparin, insulin. Decrease IV steroids. Follow chest x-ray and respiratory status closely. Follow laboratory. Continue antibiotics and broncho-pulmonary therapies. Continue CIWA protocol, Ativan, Haldol and Precedex as needed. Wean these when possible. Subjective: Moaning, poorly responsive, sedated, restrained. Significantly agitated if not... Objective: Vital Signs Temp Pulse Resp BP Pulse Ox 36.5 C 69 25 H 147/75 H 91 L 02/10/17 08:08 02/10/17 12:37 02/10/17 12:37 02/10/17 12:37 02/10/17 12:37 Microbiology 02/08/17 15:30 Gram Stain - Final Cerebral Spinal Fluid 02/08/17 15:17 Urine Culture - Final Unspecified 02/08/17 18:00 - Final Sputum, Induced/Suctioned Laboratory Results 02/10/17 04:00 02/10/17 04:00 02/09/17 02/10/17 02/11/17 05:59 05:59 05:59 Intake Total 4833 3150 Output Total 1425 1995 1100 Balance 3408 1155 -1100 PT 13.4 SEC (12.0-15.0) 02/08/17 13:35 INR 1.03 (0.83-1.16) 02/08/17 13:35 Laboratory Tests 02/10/17 02/10/17 04:00 06:06 pCO2 47 H pO2 68 ABG pH 7.32 L Calcium 9.7 Physical Exam - Physical Exam General Appearance: mild distress, obtunded, obese, other (Moaning) EENT: PERRL/EOMI, other (Nasal cannula at 3 L. Dry mucous membranes) Neck: normal inspection ( large neck) Respiratory: lungs clear (Anteriorly), decreased breath sounds (At bases), No rhonchi, No wheezing Cardiac/Chest: regular rate, rhythm (Distant heart tones) Abdomen: normal bowel sounds, non-tender, soft Male Genitalia: other (Davis catheter in place. Input greater than output since admission) Skin: normal color, warm/dry Extremities: pedal edema (Trace +) Neuro/Psych: no motor/sensory deficits (Moves all extremities), cognition abnormalities (Moaning only at this time) ICD10 Worksheet Patient Problems: Problems Problem Status Onset Altered mental status Acute Bipolar mood disorder Acute Hypoxemia Acute Pneumonia Acute
[2017-02-10] MEDS: 1/2 NS 1,000 ML IV SCH (14:32)
[2017-02-10] MEDS: HEPARIN 5,000 UNIT/0.5 ML SYR SC SCH ×2 (14:33→22:09)
--- NOTE | 2017-02-10 14:42 | HOSPPROG ---
Hospitalist Progress Note Assessment/Plan: 56 yo M p/w acute encephalopathy 2/2 acute hypoxic and hypercapnic respiratory failure # acute hypoxic/hypercarbic respiratory failure: evidenced by pCO2 85, pH 7.15, SpO2 80% on room air, visible tachypnea and labored breathing, 2/2 suspected PNA - self-extubated, monitor closely - remaining mildly hypercapnic w/ acidosis on pH, repeat ABG now and monitor - cont on supp o2 # possible community acquired PNA: diffuse infiltrates noted on cxr w/ sepsis physiology, as well as profuse secretions on bronch - Cx pending - unclear if rhino/enterovirus contributing - repeating CXR - D#3 CTX, D#2 Azithro # possible epiglottitis: edematous epiglottus on bronch and viral cx positive - currently breathing OK # acute encephalopathy: evidenced by global brain dysfunction characterized as complete unresponsiveness and then non-directible activity, acute change from his baseline, 2/2 metabolic effects of acidosis and hypercapnea - cont tx conditions - attempted to get a good mental status exam today w/ sign artificial plastic eye maker, but patient's understanding was limited and his ability to follow commands was questionable - d/w Dr. Villela on rounds, we agreed to cont restraints for safety, haldol PRN if agitated, precedex if needed # severe sepsis: evidenced by tachycardia + tachypnea + leukocytosis + end- organ failure (JUAN MANUEL, resp failure, encephalopathy), resulting in autonomic dysregulation in setting of infxn, meeting SOFA/Sepsis-3 criteria - initial procalcitonin elevated, repeat if clinically worsening to detect whether bacterial infxn uncovered - cont IVF - broadened Abx # juan manuel: worsening today, in setting of above and poor oral intake, 2/2 sev sepsis /hypovolemia, cont 1/2NS # polycythemia: with long time smoking hx presumably 2/2 chronic hypoxia, trending # schizophrenia/bipolar: outside records reviewed and noted to have prior hx of med non compliance as well, unable to assess for decompensation currently - restart home Rx if able to give PO diet. npo ppx. high risk, hep sc code. full dispo. add uncertain, remains critically ill higher level of medical complexity, high risk of worsening morbidity and/or mortality For the issues outlined above Subjective: patient follows some commands on exam, not others, he does not appear to be particularly directable Objective: Vital Signs Temp Pulse Resp BP Pulse Ox 36.5 C 69 25 H 147/75 H 91 L 02/10/17 08:08 02/10/17 12:37 02/10/17 12:37 02/10/17 12:37 02/10/17 12:37 Microbiology 02/08/17 18:00 - Final Sputum, Induced/Suctioned Sputum Culture - Final 02/08/17 15:30 Gram Stain - Final Cerebral Spinal Fluid 02/08/17 15:17 Urine Culture - Final Unspecified Laboratory Results 02/10/17 04:00 02/10/17 04:00 02/09/17 02/10/17 02/11/17 05:59 05:59 05:59 Intake Total 4833 3150 Output Total 1425 1994 1100 Balance 3408 1155 -1100 PT 13.4 SEC (12.0-15.0) 02/08/17 13:35 INR 1.03 (0.83-1.16) 02/08/17 13:35 - Physical Exam Constitutional: no apparent distress, chronically ill appearing, obese, uncomfortable, unkempt Cardiovascular: systolic murmur ( 1/6 at the sternum), No irregularly irregular , No tachycardia, No edema Respiratory: rhonchi ( bilateral on inspiration), No reduced air movement, No expiratory wheeze, No bronchial breath sounds Gastrointestinal: normoactive bowel sounds, soft, non-tender abdomen, no palpable masses Neurologic: other ( follow some 1 step commands, spontaneously moving upper extremities bilaterally), No AAOx3, No facial droop Psychiatric: encephalopathic ICD10 Worksheet Patient Problems: Problems Problem Status Onset Altered mental status Acute Bipolar mood disorder Acute Hypoxemia Acute Pneumonia Acute
[2017-02-10 15:40] LABS: BASE EXCESS -1.6 mEq/L (-2.5-2.5); BICARBONATE 24 mEq/L (22-26); MEASURED OXYGEN SATURATION 91 % (92-95); PCO2 45 mmHg (34-38); PO2 60 mmHg (65-75); TCO2 25 mEq/L (23-27)
[2017-02-10] MEDS ORDERED: OLANZapine 10 MG TAB PO SCH (21:00)
[2017-02-10] MEDS ORDERED: LITHIUM CARBONATE ER 450 MG TAB PO SCH (21:00)
[2017-02-10] MEDS ORDERED: LORazepam 2 MG/ML INJ IVP ONE (21:20)
[2017-02-10] MEDS: carBAMazepine ER 200 MG TAB PO SCH (21:25)
[2017-02-10] MEDS: LORazepam 1 MG TAB PO SCH (21:25)
[2017-02-10] MEDS: OLANZapine DISINTEGR 10 MG TAB PO SCH (21:43)
[2017-02-11] MEDS: methylPREDNISolone SOD SUCC 125 MG/2 ML VIAL IVP SCH ×4 (00:12→20:58)
[2017-02-11] MEDS: IPRATROPIUM/ALBUTEROL 3 ML DEYVIAL IH SCH ×5 (00:33→23:08)
[2017-02-11] MEDS: DEXMEDETOMIDINE HCL 400 MCG in NS 100 ML IV SCH ×5 (01:24→19:30)
[2017-02-11] MEDS: LORazepam 2 MG/ML INJ IVP PRN ×9 (04:12→23:15)
[2017-02-11] MEDS: HALOPERIDOL LACT 5 MG/ML INJ IVP PRN ×5 (04:12→23:14)
[2017-02-11 04:36] LABS: ADD DIFF? YES; ADD MORPH? NO; ADD SCAN? NO; ATYPICAL LYMPHOCYTE FLAG 0 (0-99); FRAGMENT RBC FLAG 0 (0-99); HEMATOCRIT 51.4 % (40.0-51.0); HEMOGLOBIN 15.8 g/dL (13.7-17.5); LEFT SHIFT FLG 20 (0-99); LIPEMIA HEMOLYSIS FLAG 80 (0-99); MEAN CELL HEMOGLOBIN CONCENTR. 30.7 g/dL (32.4-36.7); MEAN CELL VOLUME 100.8 fL (81.5-99.8); PLATELET CLUMPS FLAG 0 (0-99); PLATELET COUNT 174 10^3/uL (150-400); RED CELL DISTRIBUTION WIDTH 13.9 % (11.5-15.2)
[2017-02-11 04:46] LABS: ANION GAP 9 mEq/L (8-16); CALCIUM 9.9 mg/dL (8.5-10.4); CARBON DIOXIDE 24 mEq/l (22-31); CHLORIDE 125 mEq/L (97-110); CREATININE 1.7 mg/dL (0.7-1.3); GLOMERULAR FILTRATION RATE 42; GLUCOSE 153 mg/dL (70-100); MAGNESIUM 2.9 mg/dL (1.6-2.3); POTASSIUM 4.6 mEq/L (3.5-5.2); SODIUM 158 mEq/L (134-144)
[2017-02-11] MEDS: HEPARIN 5,000 UNIT/0.5 ML SYR SC SCH ×3 (05:08→23:14)
[2017-02-11] MEDS: 1/2 NS 1,000 ML IV SCH (05:09)
[2017-02-11 05:19] LABS: PLATELET ESTIMATE ADEQUATE (ADEQ)
[2017-02-11 05:24] LABS: MACROCYTES 1+
[2017-02-11 06:40] LABS: BICARBONATE 24 mEq/L (22-26); MEASURED OXYGEN SATURATION 89 % (92-95); PCO2 48 mmHg (34-38); PO2 59 mmHg (65-75); TCO2 25 mEq/L (23-27)
[2017-02-11] MEDS: INSULIN REGULAR HUMAN 100 UNIT/ML SC SCH ×4 (07:59→22:29)
[2017-02-11] MEDS: carBAMazepine ER 200 MG TAB PO SCH ×3 (08:03→22:29)
[2017-02-11] MEDS: LORazepam 0.5 MG TAB PO SCH ×2 (08:04→08:08)
[2017-02-11] MEDS: LITHIUM CARBONATE ER 450 MG TAB PO SCH ×2 (08:04→08:08)
[2017-02-11] MEDS: AZITHROMYCIN IV 500 MG in D5W 250 ML IV SCH (08:07)
[2017-02-11] MEDS: PANTOPRAZOLE SODIUM 40 MG in NS 100 ML IV SCH (08:07)
[2017-02-11] MEDS: cefTRIAXone 2 GM in D5W 50 ML IV SCH (08:07)
[2017-02-11] MEDS: D5W 1,000 ML IV SCH (09:27)
[2017-02-11] MEDS ORDERED: DESMOPRESSIN ACETATE 2 MCG in NS 50 ML IV ONE (10:57)
--- NOTE | 2017-02-11 11:20 | PDINTPN ---
Seo Manager Progress Note Assessment/Plan: Assessment: 56-year-old homeless gentleman found with altered mental status and hypoxemia outside the halfway on 02/08. History of alcoholism, tobacco use, deafness, bipolar disease. Psychiatric medications included lithium (level slightly sub therapeutic at 0.5 on admission), Zyprexa, Tegretol, and Ativan. Intubated initially secondary to airway protection and probable pneumonia. Self extubated. Lumbar puncture negative on admission. In acute renal failure. Has required high doses Precedex, Ativan and Haldol for sedation secondary to altered mental status and agitation. BUN and creatinine remain high. Has developed DI. Resolved respiratory failure. The patient self-extubated late yesterday. Stable on 4 L, with mild respiratory acidosis secondary to sedation, lung disease and obesity. Follow. Bronchopneumonia: With bilateral pulmonary infiltrates. Respiratory failure resolved. On azithromycin and ceftriaxone, nebs COPD: Secondary to tobacco abuse. Severity unknown. Alcohol withdrawal: On CIWA protocol. Quite agitated if not significantly sedated. On Ativan as well as Precedex, Haldol. Encephalopathy/AMS: Multifactorial, probably secondary to 2, however he may have sustained an anoxic injury affecting mental status, causing DI, and acute renal failure. Very hard to evaluate secondary to his deafness, possible alcohol withdrawal, on going toxic metabolic issues, and possible anoxic injury. Hypernatremia. 159 this AM. Suspect DI. 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 Chronic lithium may be playing a role as well? Acute renal failure. BUN and creatinine unchanged. On hypotonic IV fluids. Urine output quite high, suggesting DI.. Hyperglycemia: ON sliding scale insulin coverage Homelessness GI prophylaxis: Pantoprazole DVT prophylaxis: On subcu heparin. Plan: Continue care in the intensive care unit. Continue D5W intravenous fluids. DDAVP: 2 mcg x1, following urine output, sodium and urine Osm/Na. Neurology consultation will be requested. Continue subcu heparin, insulin. Decrease IV steroids. Follow chest x-ray and respiratory status. Follow laboratory. Continue antibiotics and broncho-pulmonary therapies. Continue CIWA protocol, Ativan, Haldol and Precedex as needed. Wean these when possible. 45 minutes of critical care time spent directly with the patient this morning. Discussed with hospitalist, nursing, respiratory, and the ICU multi disciplinary team. Subjective: Somnolent, sedated on Precedex, Ativan. Will not open his eyes for me or respond to commands. Apparently he he was partially responsive with decreased Precedex earlier. Objective: Vital Signs Temp Pulse Resp BP Pulse Ox 37.7 C 65 20 144/80 H 92 02/11/17 08:00 02/11/17 09:24 02/11/17 09:24 02/11/17 09:24 02/11/17 09:24 Microbiology 02/08/17 18:00 - Final Sputum, Induced/Suctioned Sputum Culture - Final 02/08/17 15:30 Gram Stain - Final Cerebral Spinal Fluid 02/08/17 15:17 Urine Culture - Final Unspecified Laboratory Results 02/11/17 04:10 02/11/17 05:50 02/10/17 02/11/17 02/12/17 05:59 05:59 05:59 Intake Total 3150 4370 Output Total 1994 5800 1700 Balance 1155 -1430 -1700 PT 13.4 SEC (12.0-15.0) 02/08/17 13:35 INR 1.03 (0.83-1.16) 02/08/17 13:35 Laboratory Tests 02/11/17 02/11/17 04:10 06:35 pCO2 48 H pO2 59 L ABG pH 7.32 L ABG O2 Saturation 89 L Total O2 Concentration 5.0 Sodium 158 H Potassium 4.6 Chloride 125 H Carbon Dioxide 24 Anion Gap 9 BUN 38 H Creatinine 1.7 H Glucose 153 H Calcium 9.9 Phosphorus 3.1 Magnesium 2.9 H CXR: Bilateral lower zone infiltrates are improved. Atelectasis, effusions and hypoventilatory changes persist. Physical Exam - Physical Exam General Appearance: obtunded, obese EENT: PERRL/EOMI, other (Nasal cannula at 4 L) Neck: normal inspection Respiratory: lungs clear (Anteriorly), decreased breath sounds (At bases), rales (Few at bases), wheezing (Mild, scattered), prolonged expiration, No rhonchi (Some central congestion present) Cardiac/Chest: regular rate, rhythm (Distant heart tones) Abdomen: normal bowel sounds, non-tender, soft Male Genitalia: other (Davis catheter in place, large urine output) Skin: normal color, warm/dry Extremities: pedal edema (Trace +) Neuro/Psych: no motor/sensory deficits (Moves all extremities), cognition abnormalities (Hard to assess secondary to sedation, deafness), No alert ICD10 Worksheet Patient Problems: Problems Problem Status Onset Altered mental status Acute Pneumonia Acute Hypoxemia Acute Bipolar mood disorder Acute
[2017-02-11 14:18] LABS: ANION GAP 9 mEq/L (8-16); CALCIUM 9.9 mg/dL (8.5-10.4); CARBON DIOXIDE 24 mEq/l (22-31); CHLORIDE 127 mEq/L (97-110); CREATININE 1.7 mg/dL (0.7-1.3); GLOMERULAR FILTRATION RATE 42; GLUCOSE 118 mg/dL (70-100); LITHIUM 0.3 mEq/L (0.6-1.2); SODIUM 160 mEq/L (134-144)
--- NOTE | 2017-02-11 17:30 | HOSPPROG ---
Hospitalist Progress Note Assessment/Plan: 56 yo M p/w acute encephalopathy 2/2 acute hypoxic and hypercapnic respiratory failure, now w/ persistent encephalopathy # acute hypoxic/hypercarbic respiratory failure: evidenced by pCO2 85, pH 7.15, SpO2 80% on room air, visible tachypnea and labored breathing, 2/2 suspected PNA and potential anoxic injury - self-extubated, remaining mildly hypercapnic w/ acidosis on pH, currently on NC o2 # possible community acquired PNA: diffuse infiltrates noted on cxr w/ sepsis physiology, as well as profuse secretions on bronch - unclear if rhino/enterovirus contributing - D#4 CTX, D#3 Azithro # possible epiglottitis: edematous epiglottus on bronch and viral cx positive - currently breathing OK # acute encephalopathy: evidenced by global brain dysfunction characterized as complete unresponsiveness and then non-directible activity, acute change from his baseline (per outside railroad design consultant), 2/2 metabolic effects of acidosis and hypercapnea - d/w Dr. Villela on rounds, we agree that patient may have experienced anoxic injury and will pursue MRI if patient sedate enough - continues to engage in non-directible behavior which is safety risk, cont on precedex - d/w Dr. Johnson, appreciate neuro consult tomorrow # severe sepsis: evidenced by tachycardia + tachypnea + leukocytosis + end- organ failure (JUAN MANUEL, resp failure, encephalopathy), resulting in autonomic dysregulation in setting of infxn, meeting SOFA/Sepsis-3 criteria - initial procalcitonin elevated, repeat if clinically worsening to detect whether bacterial infxn uncovered # juan manuel: 2/2 hypovolemia but perhaps w/ development of possible ATN and a FeNa 1.3 % - Cr stable at 1.7 - give hypotonic solution for possible DI # possible diabetes insipidus: unclear if this is 2/2 renal tubular injury vs. Rx (although patient has not received lithium or tegretol since admit) - ongoing profuse, dilute diuresis - placed on D5W and given DDAVP - get renal consult if sNa worsening # polycythemia: with long time smoking hx presumably 2/2 chronic hypoxia, trending # schizophrenia/bipolar: outside records reviewed and noted to have prior hx of med non compliance as well, unable to assess for decompensation currently - restart home Rx if able to give PO diet. npo ppx. high risk, hep sc code. full dispo. add uncertain, remains critically ill 35 minutes of critical care time spent with patient, at bedside and on ICU rounds, addressing care issues outlined above. Subjective: Patient remains non directable Objective: Vital Signs Temp Pulse Resp BP Pulse Ox 37.7 C 76 20 156/91 H 94 02/11/17 08:00 02/11/17 17:02 02/11/17 17:02 02/11/17 17:02 02/11/17 17:02 Microbiology 02/08/17 15:30 Gram Stain - Final Cerebral Spinal Fluid CSF Culture - Final 02/08/17 18:00 - Final Sputum, Induced/Suctioned Sputum Culture - Final 02/08/17 15:17 Urine Culture - Final Unspecified Laboratory Results 02/11/17 04:10 02/11/17 13:54 02/10/17 02/11/17 02/12/17 05:59 05:59 05:59 Intake Total 3150 4370 1487 Output Total 1994 5800 3900 Balance 1155 -1430 -2413 PT 13.4 SEC (12.0-15.0) 02/08/17 13:35 INR 1.03 (0.83-1.16) 02/08/17 13:35 - Physical Exam Constitutional: not in pain, chronically ill appearing, obese, unkempt, No uncomfortable Eyes: other (Fixed, symmetric pupils) Cardiovascular: No irregularly irregular, No tachycardia, No edema Respiratory: inspiratory crackles (Faint bilaterally), No expiratory wheeze, No bronchial breath sounds Gastrointestinal: normoactive bowel sounds, distension (Mild) Neurologic: other (Response to painful stimuli bilateral lower extremities, moving bilateral upper extremities, non directable behavior) ICD10 Worksheet Patient Problems: Problems Problem Status Onset Altered mental status Acute Pneumonia Acute Hypoxemia Acute Bipolar mood disorder Acute
[2017-02-11] MEDS: DESMOPRESSIN ACETATE 4 MCG/ML INJ IVP SCH (20:58)
[2017-02-11] MEDS: OLANZapine DISINTEGR 10 MG TAB PO SCH (20:58)
[2017-02-11 21:09] LABS: ANION GAP 7 mEq/L (8-16); CARBON DIOXIDE 26 mEq/l (22-31); CHLORIDE 126 mEq/L (97-110); CREATININE 1.7 mg/dL (0.7-1.3); GLOMERULAR FILTRATION RATE 42; GLUCOSE 155 mg/dL (70-100); POTASSIUM 4.2 mEq/L (3.5-5.2); SODIUM 159 mEq/L (134-144)
[2017-02-11] MEDS: LORazepam 1 MG TAB PO SCH (22:30)
[2017-02-11] MEDS: DEXMEDETOMIDINE HCL 1,000 MCG in NS 250 ML IV SCH (22:45)
[2017-02-12 02:15] LABS: CARBON DIOXIDE 26 mEq/l (22-31); CHLORIDE 128 mEq/L (97-110); CREATININE 1.7 mg/dL (0.7-1.3); GLOMERULAR FILTRATION RATE 42; GLUCOSE 200 mg/dL (70-100); SODIUM 159 mEq/L (134-144)
[2017-02-12 02:23] LABS: ANION GAP 5 mEq/L (8-16); POTASSIUM 4.6 mEq/L (3.5-5.2)
[2017-02-12] MEDS: LORazepam 2 MG/ML INJ IVP PRN ×3 (03:08→22:54)
[2017-02-12] MEDS: IPRATROPIUM/ALBUTEROL 3 ML DEYVIAL IH SCH ×4 (05:13→23:02)
[2017-02-12 05:25] LABS: % IMMATURE GRANULYOCYTES 2.4 % (0.0-1.1); ADD DIFF? NO; ADD MORPH? NO; ADD SCAN? NO; ATYPICAL LYMPHOCYTE FLAG 10 (0-99); FRAGMENT RBC FLAG 0 (0-99); HEMATOCRIT 50.6 % (40.0-51.0); HEMOGLOBIN 15.5 g/dL (13.7-17.5); LEFT SHIFT FLG 30 (0-99); LIPEMIA HEMOLYSIS FLAG 80 (0-99); MEAN CELL HEMOGLOBIN 31.1 pg (27.9-34.1); MEAN CELL HEMOGLOBIN CONCENTR. 30.6 g/dL (32.4-36.7); MEAN CELL VOLUME 101.4 fL (81.5-99.8); MEAN PLATELET VOLUME 10.9 fL (8.7-11.7); PLATELET CLUMPS FLAG 30 (0-99); PLATELET COUNT 174 10^3/uL (150-400); RED BLOOD CELL COUNT 4.99 10^6/uL (4.40-6.38); RED CELL DISTRIBUTION WIDTH 14.3 % (11.5-15.2)
[2017-02-12 05:47] LABS: ANION GAP 9 mEq/L (8-16); CALCIUM 9.8 mg/dL (8.5-10.4); CARBON DIOXIDE 24 mEq/l (22-31); CHLORIDE 126 mEq/L (97-110); CREATININE 1.7 mg/dL (0.7-1.3); GLOMERULAR FILTRATION RATE 42; GLUCOSE 181 mg/dL (70-100); MAGNESIUM 2.8 mg/dL (1.6-2.3); POTASSIUM 4.6 mEq/L (3.5-5.2); SODIUM 159 mEq/L (134-144)
[2017-02-12] MEDS: HEPARIN 5,000 UNIT/0.5 ML SYR SC SCH ×3 (06:44→20:54)
[2017-02-12] MEDS: INSULIN REGULAR HUMAN 100 UNIT/ML SC SCH ×4 (08:43→20:51)
[2017-02-12] MEDS: methylPREDNISolone SOD SUCC 125 MG/2 ML VIAL IVP SCH ×2 (08:47→20:52)
[2017-02-12] MEDS: DESMOPRESSIN ACETATE 4 MCG/ML INJ IVP SCH ×2 (08:47→20:56)
[2017-02-12] MEDS: cefTRIAXone 2 GM in D5W 50 ML IV SCH (08:51)
[2017-02-12] MEDS: AZITHROMYCIN IV 500 MG in D5W 250 ML IV SCH (08:52)
[2017-02-12] MEDS: PANTOPRAZOLE SODIUM 40 MG in NS 100 ML IV SCH (08:52)
--- NOTE | 2017-02-12 09:40 | PDCONSULT ---
Glass Mechanic Note: HOSPITAL NEUROLOGY CONSULT REQUESTING: Star Rogers MD REASON: altered mental status HPI: This is a 56 year old homeless man with bipolar disorder, congenital deafness who was brought to our ED on 02/08 after being found minimally responsive outside [facility]. He was hypoxic on EMS evaluation. Subsequently found to have severe sepsis with pneumonia necessitating mechanical ventilation. CSF was drawn in the ED with a noninflammatory profile and neg HSV PCR. CT head wo was unremarkable (had CT in ED and repeat on 02/11) . He is also experiencing acute kidney injury and possible epiglottitis. He has been sedated due to agitation, but has been agitated despite these meausres to the point where he self extubated and has self decannulated multiple IVs. He is now being supported with noninvasive respiratory supportive measures. He still remains episodically agitated/combative. Per nursing, he is continuing to make goal directed movements, such as reaching for lines/tubes and reaching out towards nursing when they are present at bedside. He has been reportedly moving all extremities without any indication of focal weakness. Patient is currently sedated on dexmedetomidine and he is deaf, so he is unable to provide any history. ROS: As per the HPI, otherwise a complete 12 point ROS was performed and is negative ALLERGIES AND MEDS: As recorded in the EMR - reviewed and reconciled PFSH: As per the intake H&P by Dr. Sweet from 02/08 EXAM: VS reviewed in EMR GEN: unkempt man laying in bed with eyes closed HEENT: NCAT, sclera anicteric, conjunctiva not injected, MMD, oropharynx clear NECK: supple, nontender, no meningismus CV: RRR s1 s2 wo m/r/c/g. Carotid pulses 2+ wo bruit NEURO: MS: sedated, eyes closed, deaf, doesn't open eyes to nox stim. CN: pupils 4mm round and reactive. Unable to visualize fundi due to patient movement. No blink to threat. Primary gaze centered. No spontaneous eye movements and no VORs. Grimace to nox stim of the face. Face symmetric. Gag intact. Tongue midline in oral cavity. MOTOR: low tone throughout. Episodic, mild, non-goal directed movements of all extremities SENSORY: No response to nox stim of the extremities REFLEX: plantars equivocal. No clonus. DTRS 2/4. COORD/GAIT: unable to assess DATA REVIEW: Labs reviewed in EMR PERSONALLY INTERPRETED RESULTS AND DATA: CT head wo 02/08 and 02/11 - unremarkable IMPRESSION AND RECOMMENDATIONS: // SEVERE SEPSIS // PNEUMONIA // JUAN MANUEL // HYPERNATREMIA - ? DI // POSSIBLE EPIGLOTTITIS // ENCEPHALOPATHY - TOXIC/METABOLIC Patient encephalopathic in the setting of multiple metabolic/infectious disturbances. Question was raised regarding an anoxic component. No indication of apnea, only hypoxia. He has been making goal directed movements and is not comatose, so I don't think he's experienced any severe/significant anoxic brain injury. An MRI could help determine if there has been any brain insult, such as hypoxic/ischemic injury. CSF was noniflammatory, so TILE INSTALLER infection is unlikely. For now, would continue with ongoing supportive measures as per the primary/ICU teams. When he is sedate enough, would recommend MRI brain wo. He would need to be paralyzed for an EEG, as he is moving too much and the study would be contaminated by myogenic artifact, so I don't think this is going to be of any help now, and I don't think he is having seizures. Patient critically ill with multisystem organ dysfunction resulting in global cerebral dysfunction with high risk of clinical deterioration which may result in further brain dysfunction. 45 mins CC time spent in direct patient care activities on the floor.
[2017-02-12 09:57] LABS: BASE EXCESS -1.8 mEq/L (-2.5-2.5); BICARBONATE 25 mEq/L (22-26); MEASURED OXYGEN SATURATION 90 % (92-95); PCO2 51 mmHg (34-38); PO2 64 mmHg (65-75); TCO2 26 mEq/L (23-27)
[2017-02-12 09:58] LABS: O2 CONCENTRATIION 50 % (0-100); P/F RATIO 128 RATIO
[2017-02-12] MEDS: D5W 1,000 ML IV SCH ×3 (10:43→20:14)
[2017-02-12 14:13] LABS: ANION GAP 8 mEq/L (8-16); CALCIUM 9.9 mg/dL (8.5-10.4); CARBON DIOXIDE 25 mEq/l (22-31); CHLORIDE 125 mEq/L (97-110); CREATININE 1.7 mg/dL (0.7-1.3); GLOMERULAR FILTRATION RATE 42; GLUCOSE 146 mg/dL (70-100); POTASSIUM 4.2 mEq/L (3.5-5.2); SODIUM 158 mEq/L (134-144)
--- NOTE | 2017-02-12 14:50 | PDINTPN ---
Sporting Goods Sales Associate Progress Note Assessment/Plan: Assessment: 56-year-old homeless gentleman found with altered mental status and hypoxemia outside the long-term on 02/08. History of alcoholism, tobacco use, deafness, bipolar disease. Psychiatric medications included lithium (level slightly sub therapeutic at 0.5 on admission), Zyprexa, Tegretol, and Ativan. Intubated initially secondary to airway protection and probable pneumonia. Self extubated. Lumbar puncture negative on admission. In acute renal failure. Has required high doses Precedex, Ativan and Haldol for sedation secondary to altered mental status and agitation. BUN and creatinine remain high. Has developed DI. Resolved respiratory failure. The patient self-extubated. Stable on NC or mask , with mild respiratory acidosis secondary to sedation, lung disease and obesity. Follow. Bronchopneumonia: With bilateral pulmonary infiltrates. Respiratory failure resolved. On azithromycin and ceftriaxone, nebs COPD: Secondary to tobacco abuse. Severity unknown. Alcohol withdrawal: On CIWA protocol. Agitated if not sedated, but this appears to be improving. He has been on Ativan as well as Precedex, Haldol. Encephalopathy/AMS: Improving. Multifactorial, probably secondary to 2, however he may have sustained an anoxic injury affecting mental status, and causing DI as well as acute renal failure? Hard to fully evaluate secondary to his deafness, alcohol withdrawal, on going toxic metabolic issues, and possible anoxic injury; but again, he seems to be improving. Hypernatremia. 158 now, 2/2 DI. 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 Chronic lithium Tx likely playing a nephrogenic role as well. Acute renal failure. BUN and creatinine unchanged. On hypotonic IV fluids. Urine output quite high, c/w DI.. Hyperglycemia: ON sliding scale insulin coverage Homelessness GI prophylaxis: Pantoprazole DVT prophylaxis: On subcu heparin. Plan: Continue care in the intensive care unit. Continue D5W intravenous fluids, replacing it 1-1 mL for previous hour urine output. Cont DDAVP 2mcg BID, following sodium and urine Osm/Na. Neurology consultation appreciated. Continue subcu heparin, insulin. Cont to decrease IV steroids. Follow chest x- ray and respiratory status. Follow laboratory. Continue antibiotics and broncho-pulmonary therapies. Continue CIWA protocol, Ativan, Haldol and Precedex as needed. Continue to wean as possible. 50 minutes of critical care time spent directly with the patient this morning, including time with providers who signs with the pt. Discussed with hospitalist , nursing, respiratory, and the ICU multi disciplinary team. Subjective: With sedation off for a while he appears to look to voice, nod his head appropriately, and respond to signage Objective: Vital Signs Temp Pulse Resp BP Pulse Ox 37.1 C 104 H 30 H 136/81 H 90 L 02/12/17 04:00 02/12/17 12:00 02/12/17 12:00 02/12/17 12:00 02/12/17 12:00 Microbiology 02/08/17 15:30 Gram Stain - Final Cerebral Spinal Fluid CSF Culture - Final Laboratory Results 02/12/17 05:11 02/12/17 13:45 02/11/17 02/12/17 02/13/17 05:59 05:59 05:59 Intake Total 4370 3859 Output Total 5800 6680 800 Balance -1430 -2821 -800 PT 13.4 SEC (12.0-15.0) 02/08/17 13:35 INR 1.03 (0.83-1.16) 02/08/17 13:35 Laboratory Tests 02/11/17 02/12/17 02/12/17 13:54 09:45 12:00 pCO2 51 H pO2 64 L ABG pH 7.31 L O2 Concentration % 50 Calcium Ammonia 14.0 [place]ing 0.3 L 02/12/17 13:45 pCO2 pO2 ABG pH O2 Concentration % Calcium 9.9 Ammonia Deming CXR: Bibasilar infiltrate/atelectasis/effusions persist. Physical Exam - Physical Exam General Appearance: obtunded (When sedated), obese, other (Responsive, looks to voice, appears to respond appropriately when off sedation) EENT: PERRL/EOMI, other (Add humidification oxygen mask in place) Neck: normal inspection (Large neck) Respiratory: decreased breath sounds, rales (Few bibasilar rales present), rhonchi (And central congestion present), wheezing (Mild), No stridor Cardiac/Chest: regular rate, rhythm, tachycardia Abdomen: non-tender, soft, No normal bowel sounds (Remains reduced) Male Genitalia: other (Davis catheter in place, good urine output: Output greater than input) Skin: normal color, warm/dry Extremities: pedal edema Neuro/Psych: no motor/sensory deficits (Moves all extremities equally), cognition abnormalities (Difficult to assess, but was sedation on of he appears to be responsive.) ICD10 Worksheet Patient Problems: Problems Problem Status Onset Altered mental status Acute Pneumonia Acute Hypoxemia Acute Bipolar mood disorder Acute
--- NOTE | 2017-02-12 16:28 | HOSPPROG ---
Hospitalist Progress Note Assessment/Plan: 56-year-old gentleman found with AMS, hypoxemia outside a prison. He has history of alcoholism deafness tobacco use and bipolar disorder. Patient is new to me today. He was initially intubated in the and self extubated himself and has been maintained on mask and NC oxygen successfully. Since admission he appears to have developed diabetes insipidus. - Acute respiratory failure: This is now resolved is a gentleman his self extubated himself and he is stable on nasal cannula or mask O2 with a mild respiratory acidosis. - Bronchial pneumonia: Bilateral pulmonary infiltrates noted on chest x-ray to my reading. Antibiotics of azithromycin and Rocephin along with nebulizers. - Acute encephalopathy, AMS: This may be improving. The encephalopathy is probably multifactorial related to perhaps some anoxic injury, possible drug effects and metabolic effects. He has required Precedex for sedation as he is purposeful in removing all IV lines and disrupting his own care. 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 Additionally the gentleman is deaf and requires sign language and a high level of alertness to interact. Currently we are able to interact minimally with him. Plan is to continue his Precedex sedation as needed for his safety. - COPD: No tobacco use but the severity of the COPD is unknown. - Alcoholism: Patient has a history of alcohol excess and this possibly represents alcohol withdrawal with his agitation. Will continue appropriate sedation. - Hypernatremia with a sodium of 158: This appears to be diabetes insipidus induced following his admission although this may have been a normal sodium on admission which was truly abnormal at the time due to multiple metabolic factors. Thus we have unmasked diabetes insipidus perhaps precipitated by his lithium. The lithium has been stopped although the resolution of the renal impairment is slow. Plan is to continue fluid replacements equal to or greater than his fluid losses. - Acute kidney injury: BUN and creatinine are unchanged but are elevated. He is on hypotonic IV fluids and urine output is quite high consistent with diabetes insipidus. We are maintaining him euvolemic. - Hyperglycemia on SSI. - DVT prophylaxis: SC heparin. - Disposition: Unknown patient is homeless. Subjective: Patient agitated as Apresodex is decreased. We can only communicate with sign language. Objective: Vital Signs Temp Pulse Resp BP Pulse Ox 37.0 C 123 H 18 148/80 H 99 02/12/17 15:56 02/12/17 15:56 02/12/17 15:56 02/12/17 15:56 02/12/17 15:56 Microbiology 02/08/17 15:30 Gram Stain - Final Cerebral Spinal Fluid CSF Culture - Final Laboratory Results 02/12/17 05:11 02/12/17 13:45 02/11/17 02/12/17 02/13/17 05:59 05:59 05:59 Intake Total 4370 3859 Output Total 5800 6680 800 Balance -1430 -2821 -800 PT 13.4 SEC (12.0-15.0) 02/08/17 13:35 INR 1.03 (0.83-1.16) 02/08/17 13:35 - Time Spent With Patient Time Spent with Patient: greater than 35 minutes Time Spent with Patient: Greater than 35 minutes spent on this patients care, greater than 50% of time spent counseling, educating, and coordinating care regarding the above mentioned plan. - Physical Exam Constitutional: other ( Agitated behavior when not sedated.) Eyes: PERRL Ears, Nose, Mouth, Throat: moist mucous membranes, other ( Deafness) Cardiovascular: regular rate and rhythym, no murmur, rub, or gallop Respiratory: no respiratory distress, bronchial breath sounds, rhonchi Gastrointestinal: normoactive bowel sounds, soft, non-tender abdomen Genitourinary: no bladder fullness Musculoskeletal: other ( appears to have full muscle strength but specific testing cannot be done.) Neurologic: CN II-XII Intact Psychiatric: other ( Sedated on Precedex.) ICD10 Worksheet Patient Problems: Problems Problem Status Onset Altered mental status Acute Pneumonia Acute Hypoxemia Acute Bipolar mood disorder Acute
[2017-02-12] MEDS: HALOPERIDOL LACT 5 MG/ML INJ IVP PRN (17:24)
[2017-02-12 18:07] LABS: BASE EXCESS -0.3 mEq/L (-2.5-2.5); BICARBONATE 26 mEq/L (22-26); MEASURED OXYGEN SATURATION 93 % (92-95); PCO2 50 mmHg (34-38); PO2 69 mmHg (65-75); TCO2 27 mEq/L (23-27)
[2017-02-12] MEDS: DEXMEDETOMIDINE HCL 1,000 MCG in NS 250 ML IV SCH (18:57)
[2017-02-12] MEDS: LORazepam 1 MG TAB PO SCH (19:25)
[2017-02-12] MEDS: carBAMazepine ER 200 MG TAB PO SCH (19:25)
[2017-02-12] MEDS: OLANZapine DISINTEGR 10 MG TAB PO SCH (19:26)
[2017-02-12 19:56] LABS: ANION GAP 7 mEq/L (8-16); CALCIUM 8.9 mg/dL (8.5-10.4); CARBON DIOXIDE 25 mEq/l (22-31); CHLORIDE 124 mEq/L (97-110); CREATININE 1.5 mg/dL (0.7-1.3); GLOMERULAR FILTRATION RATE 48; GLUCOSE 128 mg/dL (70-100); POTASSIUM 3.7 mEq/L (3.5-5.2); SODIUM 156 mEq/L (134-144)
[2017-02-13] MEDS: DEXMEDETOMIDINE HCL 1,000 MCG in NS 250 ML IV SCH ×2 (02:34→13:37)
[2017-02-13] MEDS: D5W 1,000 ML IV SCH ×3 (02:34→22:12)
[2017-02-13 04:30] LABS: % IMMATURE GRANULYOCYTES 1.3 % (0.0-1.1); ABSOLUTE IMMATURE GRANULOCYTES 0.17 10^3/uL (0.00-0.10); ADD DIFF? NO; ADD MORPH? NO; ADD SCAN? NO; ATYPICAL LYMPHOCYTE FLAG 0 (0-99); FRAGMENT RBC FLAG 0 (0-99); HEMATOCRIT 47.9 % (40.0-51.0); HEMOGLOBIN 14.7 g/dL (13.7-17.5); LEFT SHIFT FLG 10 (0-99); LIPEMIA HEMOLYSIS FLAG 80 (0-99); MEAN CELL HEMOGLOBIN 31.5 pg (27.9-34.1); MEAN CELL HEMOGLOBIN CONCENTR. 30.7 g/dL (32.4-36.7); MEAN CELL VOLUME 102.8 fL (81.5-99.8); MEAN PLATELET VOLUME 10.9 fL (8.7-11.7); PLATELET CLUMPS FLAG 10 (0-99); PLATELET COUNT 134 10^3/uL (150-400); RED BLOOD CELL COUNT 4.66 10^6/uL (4.40-6.38); RED CELL DISTRIBUTION WIDTH 14.4 % (11.5-15.2)
[2017-02-13 04:46] LABS: ANION GAP 8 mEq/L (8-16); CALCIUM 9.3 mg/dL (8.5-10.4); CARBON DIOXIDE 26 mEq/l (22-31); CHLORIDE 122 mEq/L (97-110); CREATININE 1.6 mg/dL (0.7-1.3); GLOMERULAR FILTRATION RATE 45; GLUCOSE 187 mg/dL (70-100); MAGNESIUM 2.4 mg/dL (1.6-2.3); POTASSIUM 4.7 mEq/L (3.5-5.2); SODIUM 156 mEq/L (134-144)
[2017-02-13] MEDS: IPRATROPIUM/ALBUTEROL 3 ML DEYVIAL IH SCH ×3 (05:04→17:49)
[2017-02-13 05:08] LABS: BASE EXCESS -0.2 mEq/L (-2.5-2.5); BICARBONATE 26 mEq/L (22-26); MEASURED OXYGEN SATURATION 92 % (92-95); PCO2 50 mmHg (34-38); PO2 63 mmHg (65-75); TCO2 28 mEq/L (23-27)
[2017-02-13] MEDS: LORazepam 2 MG/ML INJ IVP PRN (05:21)
[2017-02-13] MEDS: HEPARIN 5,000 UNIT/0.5 ML SYR SC SCH ×3 (06:46→22:12)
[2017-02-13] MEDS: PANTOPRAZOLE SODIUM 40 MG in NS 100 ML IV SCH (08:22)
[2017-02-13] MEDS: cefTRIAXone 2 GM in D5W 50 ML IV SCH (08:22)
[2017-02-13] MEDS: methylPREDNISolone SOD SUCC 125 MG/2 ML VIAL IVP SCH ×2 (08:23→19:54)
[2017-02-13] MEDS: INSULIN REGULAR HUMAN 100 UNIT/ML SC SCH ×3 (08:40→18:09)
[2017-02-13] MEDS: carBAMazepine ER 200 MG TAB PO SCH ×2 (08:40→19:55)
[2017-02-13] MEDS: DESMOPRESSIN ACETATE 4 MCG/ML INJ IVP SCH ×2 (08:40→19:55)
[2017-02-13] MEDS: LORazepam 0.5 MG TAB PO SCH (08:41)
[2017-02-13] MEDS: AZITHROMYCIN IV 500 MG in D5W 250 ML IV SCH (09:27)
--- NOTE | 2017-02-13 12:36 | PDINTPN ---
Mill Feeder Progress Note Assessment/Plan: Assessment: 56-year-old homeless gentleman found with altered mental status and hypoxemia outside the assisted on 02/08. History of alcoholism, tobacco use, deafness, bipolar disease. Psychiatric medications included lithium (level slightly sub therapeutic at 0.5 on admission), Zyprexa, Tegretol, and Ativan. Intubated initially secondary to airway protection and probable pneumonia. Self extubated. Lumbar puncture negative on admission. In acute renal failure. Has required high doses Precedex, Ativan and Haldol for sedation secondary to altered mental status and agitation. BUN and creatinine remain high. Has developed DI. Resolved respiratory failure. The patient self-extubated 02/10. Stable on NC or mask, with mild and improving respiratory acidosis secondary to sedation, lung disease and obesity. Follow. Bronchopneumonia: With bilateral pulmonary infiltrates. Respiratory failure resolved. On azithromycin and ceftriaxone, nebs COPD: Secondary to tobacco abuse. Severity unknown. Volume overload/CHF: Chest x-ray consistent with volume overload, with bilateral pleural effusions in addition to the above. Hypoxemic but pCO2 better. Cardiac echo from 02/09 was normal. Alcohol withdrawal: On CIWA protocol. Agitated if not sedated, but this appears to be improving. He has been on Ativan as well as Precedex, Haldol. Encephalopathy/AMS: Improving. Multifactorial, probably secondary to 2, however he may have sustained an anoxic injury affecting mental status, and causing DI as well as acute renal failure? Hard to fully evaluate secondary to his deafness, alcohol withdrawal, on going toxic metabolic issues, and possible anoxic injury; but again, he seems to be improving. Precedex to be decreased again today. Mental status evaluation with someone who signs from [facility] will be done again today. Hypernatremia. 156 today,, improved. 2/2 DI. 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 Chronic lithium Tx likely playing a nephrogenic role as well. Acute renal failure. BUN and creatinine slightly better. On hypotonic IV fluids. Urine output quite high, c/w DI.. Hyperglycemia: ON sliding scale insulin coverage Homelessness? GI prophylaxis: Pantoprazole DVT prophylaxis: On subcu heparin. Plan: Continue care in the intensive care unit. Continue D5W intravenous fluids, replacing it 1-1 mL for previous hour urine output. Cont DDAVP 2mcg BID, following sodium and urine Osm/Na. Will ask Renal to see the patient today. Continue subcu heparin, insulin. Cont to decrease IV steroids. Follow chest x-ray and respiratory status. Follow laboratory. Continue antibiotics and broncho-pulmonary therapies. Continue CIWA protocol, Ativan, Haldol and Precedex as needed. Continue to wean or hold these as possible. 45 minutes of critical care time spent directly with the patient this morning. Discussed with hospitalist, nursing, Renal, respiratory, and the ICU multi disciplinary team. Subjective: Somnolent. Arouses somewhat to stimulation but will not look to voice or communicate. Back on Precedex at moderately high doses. Also got some Ativan overnight. Objective: Vital Signs Temp Pulse Resp BP Pulse Ox 36.4 C 78 24 H 108/79 95 02/13/17 08:00 02/13/17 12:00 02/13/17 12:00 02/13/17 12:00 02/13/17 12:00 Laboratory Results 02/13/17 04:20 02/13/17 04:20 02/12/17 02/13/17 02/14/17 05:59 05:59 05:59 Intake Total 3859 4162.5 1415.5 Output Total 6680 4400 1585 Balance -2821 -237.5 -169.5 PT 13.4 SEC (12.0-15.0) 02/08/17 13:35 INR 1.03 (0.83-1.16) 02/08/17 13:35 Laboratory Tests 02/13/17 02/13/17 04:20 05:00 pCO2 50 H pO2 63 L Total CO2 28 H ABG pH 7.34 L Total O2 Concentration 10.0 Calcium 9.3 Phosphorus 5.2 H Magnesium 2.4 H CXR: About the same. Hypoventilatory changes with bilateral effusions consistent with volume overload and bibasilar atelectasis and/or infiltrates. Physical Exam - Physical Exam General Appearance: obtunded (Arouses but will look to voice, respond), obese, other (Moved to chair) EENT: PERRL/EOMI, other (On OxyMask) Neck: normal inspection Respiratory: lungs clear (Anteriorly), decreased breath sounds (At bases with probable dullness), rales (Few), No rhonchi, No wheezing Cardiac/Chest: regular rate, rhythm (Distant heart tones) Abdomen: non-tender, soft (Obese), No normal bowel sounds (Decreased, present) Male Genitalia: other (Davis catheter in place. Output slightly greater than input last 2 days.) Skin: normal color, warm/dry Extremities: pedal edema Neuro/Psych: no motor/sensory deficits (Hard to assess but moves all extremities ), cognition abnormalities (Also hard to assess secondary to deafness, sedating medications, possible withdrawal, etc) ICD10 Worksheet Patient Problems: Problems Problem Status Onset Altered mental status Acute Pneumonia Acute Hypoxemia Acute Bipolar mood disorder Acute
--- NOTE | 2017-02-13 13:27 | ECHO ---
[id number] + + [address] : : [place] [address] : : [phone] + + Adult Echocardiographic Report + ------+ :Name: ALLEN LIU SStudy Date: 02/09/2017 02:16 PM : : Hospital Admission Number: [id number] Locatio n: 255: :: 1960 Gender: Male Height: 69 in : :Age: 56 yrs Race: WH Weight: 219 lb : :Reason For Study: Eval LV Fx : : BSA: 2.1 meters 2 : :History: AMS, Question CHF : + ------+ MMode/2D Measurements \T\ Calculations IVSd: 0.97 cm LVIDd: 4.7 cm FS: 38.7 % Ao root diam: 3.3 cm LVPWd: 1.1 cm LVIDs: 2.9 cm EDV(Teich): 102.8 ml ACS: 2.1 cm ESV(Teich): 31.8 ml EF(Teich): 69.1 % Normal Measurement Values: + + :LVIDd (3.5-5.7cm) IVSd (0.6-1.1cm) LVPWd (0.6-1.1cm) Aortic Root (2.0-3.7cm)Left Atrium (1.5-4.0cm): :LV Vol(d) (76-115ml) LV Vol(s) (29-48ml) Ejec Fraction (50-65%)PV Ney (0.6- 1.2m/s) TV Ney (0.4-1.0m/s) : :MV E Ney (0.8-1.0m/s)MV A Ney (0.3-1.0m/s)LVOT Ney (0.7-1.2m/s) Asc Ao Ney ( 0.9-1.8m/s) : + + Doppler Measurements \T\ Calculations MV E max ney: Ao V2 max: LV V1 max: PA V2 max: 70.6 cm/sec 127.6 cm/sec 61.2 cm/sec 118.1 cm/sec MV A max ney: Ao max P.5 mmHgLV V1 max PG: PA max P.6 mmHg 80.9 cm/sec Ao mean P.5 mmHg MV E/A: 0.87 3.9 mmHg Ao V2 mean: 90.2 cm/sec Ao V2 VTI: 23.2 cm Left Ventricle The left ventricle is normal in size. There is normal left ventricular wall thickness. The left ventricular ejection fraction is normal. There is Doppler evidence for diastolic dysfunction. Ejection Fraction = 69%. The left ventricular wall motion is normal. Right Ventricle The right ventricle is normal in size and function. Atria The left atrial size is normal. Right atrial size is normal. Mitral Valve The mitral valve is normal in structure and function. There is no evidence of mitral valve prolapse. There is no mitral valve stenosis. There is trace mitral regurgitation. Tricuspid Valve Normal tricuspid valve. No tricuspid regurgitation. Aortic Valve There is mild aortic valve calcification. There is no aortic stenosis. Trace aortic regurgitation. There is mild turbulent flow noted thru the aortic valve. Pulmonic Valve The pulmonic valve is normal in structure and function. There is no pulmonic valvular regurgitation. Great Vessels The aortic root is normal size. Pericardium/Pleural There is no pericardial effusion. Conclusion A complete two-dimensional transthoracic echocardiogram was performed (2D, M-mode, Doppler and color flow Doppler). Technically limited study with poor acoustic windows. The left ventricular ejection fraction is normal. There is Doppler evidence for diastolic dysfunction. Ejection Fraction = 69%. The left ventricular wall motion is normal however regional wall motion abnormalities cannot be excluded based on the quality of this study. The right ventricle is normal in size and function. The left atrial size is normal. Grossly normal appearing valves. There is trace mitral regurgitation. There is mild aortic valve calcification. There is no aortic stenosis. Trace aortic regurgitation. There is no pericardial effusion. Final Reading Physician: Yeyo Ford signed on 02/13/2017 01:26 PM Ordering Physician: Peng Sweet Performed By: José Bar, LETICIACS
--- NOTE | 2017-02-13 14:57 | HOSPPROG ---
Hospitalist Progress Note Assessment/Plan: 56-year-old gentleman found with AMS, hypoxemia outside a long term. He has history of alcoholism deafness tobacco use and bipolar disorder. He was initially intubated in the and self extubated himself and has been maintained on mask and NC oxygen successfully. Since admission he appears to have developed diabetes insipidus. Today the patient's mental status is perhaps slightly improved and he may be more cooperative. He is requiring less sedation. - Acute respiratory failure: This is now resolved is a gentleman his self extubated himself and he is stable on nasal cannula or mask O2 with a mild respiratory acidosis. - Bronchial pneumonia: Bilateral pulmonary infiltrates noted on chest x-ray to my reading. Antibiotics of azithromycin and Rocephin along with nebulizers. - Acute CHF: New problem: evidence of volume overload with bilateral pleural effusions and peripheral edema. Cardiac echo was normal. This may represent CHF with diastolic dysfunction and decompensation along with third- spacing of fluid secondary to an acute illness. Currently is I&Os approximately even and we are replacing fluid equal to his urinary output consistent with therapy for his diabetes insipidus. - Diabetes insipidus: This seems to have developed during this hospitalization although may have been masked by his acute illness. We are replacing his urinary output with equal amounts of free water along with the addition of free water from his medications. Sodium is currently declining slowly and this is appropriately under treatment with fluid replacement and DDAVP. - Acute encephalopathy, AMS: This may be improving. The encephalopathy is probably multifactorial related to perhaps some anoxic injury, possible drug effects and metabolic effects. He has required Precedex for sedation as he is purposeful in removing all IV lines and disrupting his own care. 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 Additionally the gentleman is deaf and requires sign language and a high level of alertness to interact. Today he is requiring less sedation and in the late afternoon he became more conversant was interactive with fuel cell designer. At this time he appears much improved. - COPD: No tobacco use but the severity of the COPD is unknown. Treatment with Rocephin, azithromycin and bronchodilators. - Alcoholism: Patient has a history of alcohol excess and this possibly represents alcohol withdrawal with his agitation. Will continue appropriate sedation. - Hypernatremia: This appears to be diabetes insipidus induced following his admission although this may have been a normal sodium on admission which was truly abnormal at the time due to multiple metabolic factors. Thus we have unmasked diabetes insipidus perhaps precipitated by his lithium. He is receiving lithium and we are monitoring of the level. - Acute kidney injury: BUN and creatinine are unchanged but are elevated With creatinine 1.6. Historically he has normal renal function. He is on hypotonic IV fluids and urine output is quite high consistent with diabetes insipidus. We are maintaining him euvolemic. - Hyperglycemia on SSI. - DVT prophylaxis: SC heparin. - Disposition: Unknown patient is homeless. Subjective: Patient seems to be less agitated and more communicative. We were able to interact with a fuel cell designer. He has been sitting up in a chair and more cooperative. Objective: Vital Signs Temp Pulse Resp BP Pulse Ox 36.4 C 87 19 144/71 H 92 02/13/17 08:00 02/13/17 14:00 02/13/17 14:00 02/13/17 14:00 02/13/17 14:00 Laboratory Results 02/13/17 04:20 02/13/17 04:20 02/12/17 02/13/17 02/14/17 05:59 05:59 05:59 Intake Total 3859 4162.5 1873.5 Output Total 6680 4400 2185 Balance -2821 -237.5 -311.5 PT 13.4 SEC (12.0-15.0) 02/08/17 13:35 INR 1.03 (0.83-1.16) 02/08/17 13:35 - Time Spent With Patient Time Spent with Patient: greater than 35 minutes Time Spent with Patient: Greater than 35 minutes spent on this patients care, greater than 50% of time spent counseling, educating, and coordinating care regarding the above mentioned plan. - Pending Discharge Pending Discharge Within 24 Hours: No Pending Discharge Within 48 Hours: No - Physical Exam Constitutional: no apparent distress Eyes: PERRL, anicteric sclera Ears, Nose, Mouth, Throat: moist mucous membranes, other ( Patient is deaf) Cardiovascular: regular rate and rhythym, no murmur, rub, or gallop Respiratory: inspiratory crackles, bronchial breath sounds, rhonchi Gastrointestinal: normoactive bowel sounds, soft, non-tender abdomen Genitourinary: no bladder fullness Skin: warm Musculoskeletal: full muscle strength Neurologic: CN II-XII Intact Psychiatric: other ( more cooperative today and requiring less Precedex and Haldol. Les episodes of agitation.) ICD10 Worksheet Patient Problems: Problems Problem Status Onset Altered mental status Acute Pneumonia Acute Hypoxemia Acute Bipolar mood disorder Acute
[2017-02-13 16:05] LABS: ANION GAP 12 mEq/L (8-16); CALCIUM 9.7 mg/dL (8.5-10.4); CARBON DIOXIDE 24 mEq/l (22-31); CHLORIDE 119 mEq/L (97-110); CREATININE 1.5 mg/dL (0.7-1.3); GLOMERULAR FILTRATION RATE 48; GLUCOSE 170 mg/dL (70-100); POTASSIUM 4.1 mEq/L (3.5-5.2); SODIUM 155 mEq/L (134-144)
[2017-02-13] MEDS: LORazepam 1 MG TAB PO SCH (19:54)
[2017-02-13] MEDS: OLANZapine DISINTEGR 10 MG TAB PO SCH (20:02)
[2017-02-14] MEDS: INSULIN REGULAR HUMAN 100 UNIT/ML SC SCH ×5 (00:07→20:47)
[2017-02-14] MEDS: IPRATROPIUM/ALBUTEROL 3 ML DEYVIAL IH SCH ×4 (00:29→17:26)
[2017-02-14] MEDS: D5W 1,000 ML IV SCH (02:41)
[2017-02-14] MEDS: DEXMEDETOMIDINE HCL 1,000 MCG in NS 250 ML IV SCH (03:11)
[2017-02-14] MEDS: LORazepam 2 MG/ML INJ IVP PRN (04:50)
[2017-02-14] MEDS: HEPARIN 5,000 UNIT/0.5 ML SYR SC SCH ×2 (05:22→13:43)
[2017-02-14 05:48] LABS: % IMMATURE GRANULYOCYTES 1.3 % (0.0-1.1); ABSOLUTE IMMATURE GRANULOCYTES 0.19 10^3/uL (0.00-0.10); ADD DIFF? NO; ADD MORPH? NO; ADD SCAN? NO; ATYPICAL LYMPHOCYTE FLAG 0 (0-99); FRAGMENT RBC FLAG 0 (0-99); HEMATOCRIT 49.7 % (40.0-51.0); LEFT SHIFT FLG 20 (0-99); LIPEMIA HEMOLYSIS FLAG 80 (0-99); MEAN CELL HEMOGLOBIN 30.7 pg (27.9-34.1); MEAN CELL HEMOGLOBIN CONCENTR. 30.2 g/dL (32.4-36.7); MEAN CELL VOLUME 101.8 fL (81.5-99.8); MEAN PLATELET VOLUME 11.4 fL (8.7-11.7); PLATELET CLUMPS FLAG 0 (0-99); PLATELET COUNT 123 10^3/uL (150-400); RED BLOOD CELL COUNT 4.88 10^6/uL (4.40-6.38); RED CELL DISTRIBUTION WIDTH 14.2 % (11.5-15.2)
[2017-02-14 06:05] LABS: ALANINE AMINOTRANSFERASE 141 IU/L (21-72); ALKALINE PHOSPHATASE 88 IU/L (38-126); ANION GAP 9 mEq/L (8-16); ASPARTATE AMINOTRANSFERASE 34 IU/L (17-59); BILIRUBIN,TOTAL 0.8 mg/dL (0.1-1.4); CALCIUM 9.6 mg/dL (8.5-10.4); CARBON DIOXIDE 26 mEq/l (22-31); CHLORIDE 117 mEq/L (97-110); CREATININE 1.5 mg/dL (0.7-1.3); GLOMERULAR FILTRATION RATE 48; GLUCOSE 161 mg/dL (70-100); POTASSIUM 4.1 mEq/L (3.5-5.2); SODIUM 152 mEq/L (134-144); TOTAL PROTEIN 5.5 g/dL (6.3-8.2)
[2017-02-14 06:11] LABS: LITHIUM < 0.2 mEq/L (0.6-1.2)
[2017-02-14] MEDS: AZITHROMYCIN IV 500 MG in D5W 250 ML IV SCH (08:54)
[2017-02-14] MEDS: cefTRIAXone 2 GM in D5W 50 ML IV SCH (08:54)
[2017-02-14] MEDS: methylPREDNISolone SOD SUCC 125 MG/2 ML VIAL IVP SCH (08:54)
[2017-02-14] MEDS: PANTOPRAZOLE SODIUM 40 MG TAB PO SCH (09:01)
[2017-02-14] MEDS: LORazepam 0.5 MG TAB PO SCH (09:01)
[2017-02-14] MEDS: carBAMazepine ER 200 MG TAB PO SCH ×2 (09:01→19:30)
[2017-02-14] MEDS: DESMOPRESSIN ACETATE 4 MCG/ML INJ IVP SCH ×2 (09:08→19:31)
--- NOTE | 2017-02-14 13:40 | PDINTPN ---
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 History of alcoholism, tobacco use, deafness, bipolar disease. Psychiatric medications included lithium (level slightly sub therapeutic at 0.5 on admission), Zyprexa, Tegretol, and Ativan. Intubated initially secondary to airway protection and probable pneumonia. Self extubated. Lumbar puncture negative on admission. In acute renal failure. Has required high doses Precedex, Ativan and Haldol for sedation secondary to altered mental status and agitation. BUN and creatinine remain high. Has developed DI. Resolved respiratory failure. The patient self-extubated 02/10. O2 requirements have significantly improved. Respiratory acidosis improving Follow. Bronchopneumonia: With bilateral pulmonary infiltrates. Respiratory failure resolved. On azithromycin and ceftriaxone day 6 of -? Will decide. On nebs and decreasing steroids COPD: Secondary to tobacco abuse. Severity unknown. Volume overload/CHF: Chest x-ray consistent with volume overload, with bilateral pleural effusions in addition to the above. Hypoxemia and CO2 retention are improved.. Cardiac echo from 02/09 was normal. Alcohol withdrawal: He was on CIWA protocol. This can be stopped now. He does take Ativan in low doses as an outpatient. This may need to be restarted. No longer agitated. Encephalopathy/AMS: Improved/resolving. Multifactorial, probably secondary to 2, however he may have sustained an anoxic injury affecting mental status, and causing DI as well as acute renal failure? Hard to know, but his mental status has significantly improved over the last 48 hours any appears to be fairly close to baseline or perhaps better. He is able to communicate through a director of global talent/sign-er. Doing quite well. Hypernatremia. 152 today - improved. 2/2 DI. 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 Acute renal failure. BUN and creatinine slightly better. On hypotonic IV fluids. Urine output quite high, c/w DI..\ Bipolar disorder. He appears to be doing well with this. On Lamictal and Tegretol along with low-dose maintenance Ativan. We are holding his lithium. I discussed the issues with his psychiatrist, Dr. Han at [facility] today. We have agreed to continue to hold lithium at this time. Hyperglycemia: ON sliding scale insulin coverage Homelessness? GI prophylaxis: Pantoprazole DVT prophylaxis: On subcu heparin. Plan: Continue care in the intensive care unit. Continue D5W intravenous fluids, replacing it 1-1 mL for previous hour urine output. Cont DDAVP 2mcg BID, following sodium and urine Osm/Na. Consider switching to intranasal and the next day or so. Discussed with Renal: Formal consult not necessarily indicated however I would like to get there thoughts regarding the time course of nephrogenic DI once lithium has been stopped. Continue subcu heparin, insulin. Cont to decrease steroids. Follow chest x-ray intermittently. Follow laboratory. Continue antibiotics and broncho-pulmonary therapies for now. D/c CIWA protocol. 40 minutes of critical care time spent directly with the patient this morning. Discussed with hospitalist, psychiatry, nursing, Renal, and the ICU multi disciplinary team. Subjective: Doing well. Up in the chair. Able to eat. Appreciative of care. Very communicative with director of global talent. Denies pain or shortness of breath. Objective: Vital Signs Temp Pulse Resp BP Pulse Ox 36.6 C 78 19 126/70 H 93 02/14/17 12:51 02/14/17 12:51 02/14/17 12:51 02/14/17 12:51 02/14/17 12:51 Laboratory Results 02/14/17 05:15 02/14/17 05:15 02/13/17 02/14/17 02/15/17 05:59 05:59 05:59 Intake Total 4162.5 5803.5 750 Output Total 4400 6265 780 Balance -237.5 -461.5 -30 PT 13.4 SEC (12.0-15.0) 02/08/17 13:35 INR 1.03 (0.83-1.16) 02/08/17 13:35 Laboratory Tests 02/13/17 02/14/17 02/14/17 14:45 05:15 08:00 Serum Osmolality 329 H Calcium 9.6 Total Bilirubin 0.8 AST 34 ALT 141 H Albumin 3.0 L Urine Osmolality 259 L Ur Random Sodium 65 46 [place] < 0.2 L Physical Exam - Physical Exam General Appearance: alert, no apparent distress, obese, other (Up in chair) EENT: PERRL/EOMI, other (Nasal cannula at 2 L) Neck: normal inspection Respiratory: lungs clear (Anteriorly, coarse), decreased breath sounds (At bases , with some dullness.), rhonchi (Some central congestion with cough), No rales ( No significant rales, no consolidation), No wheezing Cardiac/Chest: regular rate, rhythm (Heart tones) Abdomen: normal bowel sounds, non-tender, soft Male Genitalia: other (Davis catheter in place. Still with large volume of urine out, being replaced 1-1 with D5W) Skin: normal color, warm/dry Extremities: pedal edema (Trace +) Neuro/Psych: no motor/sensory deficits, cognition abnormalities (Appears to be returning to baseline) ICD10 Worksheet Patient Problems: Problems Problem Status Onset Altered mental status Acute Pneumonia Acute Hypoxemia Acute Bipolar mood disorder Acute
--- NOTE | 2017-02-14 16:28 | HOSPPROG ---
Hospitalist Progress Note Assessment/Plan: 56-year-old gentleman found with AMS, hypoxemia outside a [place] [facility]. He has history of alcoholism deafness tobacco use and bipolar disorder. He was initially intubated in the and self extubated himself and has been maintained on mask and NC oxygen successfully. Since admission he appears to have developed diabetes insipidus. today the patient's mental status is normal. We have been able to communicate effectively through sign language. - Acute respiratory failure: This is now resolved is a gentleman his self extubated himself and he is stable on nasal cannula or mask O2 with a mild respiratory acidosis. - Bronchial pneumonia: Bilateral pulmonary infiltrates noted on chest x-ray to my reading. Antibiotics of azithromycin and Rocephin along with nebulizers. He continues to improve. Through sign interpretation we have communicated would like him to cough and deep breathe and be up in a chair. In the last 24 hours his oxygen need is decreased from 10 L per mask O2 2 L of nasal prongs. - Acute CHF: evidence of volume overload with bilateral pleural effusions and peripheral edema. Cardiac echo was normal. This may represent CHF with diastolic dysfunction and decompensation along with third-spacing of fluid secondary to an acute illness. Currently is I&Os approximately even and we are replacing fluid equal to his urinary output consistent with therapy for his diabetes insipidus. Oxygen need is slowly improving. - Diabetes insipidus: This seems to have developed during this hospitalization although may have been masked by his acute illness. We are replacing his urinary output with equal amounts of free water along with the addition of free water from his medications. Sodium is currently declining slowly and this is appropriately under treatment with fluid replacement and DDAVP. Nephrology is following - Acute encephalopathy, AMS: this is improving. We had effective communication through sign language with the gentleman today in the afternoon. Is requiring less sedation for agitation and his oxygen needs are improving. The acute encephalopathy was probably secondary to some anoxic cerebral injury and metabolic disorder and medications. - nutrition: Patient today is beginning to take oral nutrition and has adequate swallowing without signs of aspiration. He has been without effective nutrition since admission. - COPD: No tobacco use but the severity of the COPD is unknown. Treatment with Rocephin, azithromycin and bronchodilators. - Alcoholism: Patient has a history of alcohol excess and this possibly represents alcohol withdrawal with his agitation. Will continue appropriate sedation. - Hypernatremia: This appears to be diabetes insipidus induced following his admission although this may have been a normal sodium on admission which was truly abnormal at the time due to multiple metabolic factors. Thus we have unmasked diabetes insipidus perhaps precipitated by his lithium. He is receiving lithium and we are monitoring of the level. - Acute kidney injury: BUN and creatinine are unchanged but are elevated With creatinine 1.6. Historically he has normal renal function. He is on hypotonic IV fluids and urine output is quite high consistent with diabetes insipidus. We are maintaining him euvolemic. Again nephrology is following - Hyperglycemia on SSI. - DVT prophylaxis: SC heparin. - Disposition: Unknown patient is homeless. he has close follow-up through [facility] Subjective: today is much less agitated we have a effective communication through sign language with the gentleman. He was interactive pleasant and easily in communication. Objective: Vital Signs Temp Pulse Resp BP Pulse Ox 36.9 C 92 23 H 124/68 H 90 L 02/14/17 16:00 02/14/17 16:00 02/14/17 16:00 02/14/17 16:00 02/14/17 16:00 Laboratory Results 02/14/17 05:15 02/14/17 05:15 02/13/17 02/14/17 02/15/17 05:59 05:59 05:59 Intake Total 4162.5 5803.5 750 Output Total 4400 6265 780 Balance -237.5 -461.5 -30 PT 13.4 SEC (12.0-15.0) 02/08/17 13:35 INR 1.03 (0.83-1.16) 02/08/17 13:35 - Time Spent With Patient Time Spent with Patient: greater than 35 minutes Time Spent with Patient: Greater than 35 minutes spent on this patients care, greater than 50% of time spent counseling, educating, and coordinating care regarding the above mentioned plan. - Pending Discharge Pending Discharge Within 24 Hours: No Pending Discharge Within 48 Hours: No - Physical Exam Constitutional: no apparent distress Eyes: PERRL, anicteric sclera Ears, Nose, Mouth, Throat: moist mucous membranes, other ( Patient is deaf) Cardiovascular: regular rate and rhythym, no murmur, rub, or gallop Respiratory: no respiratory distress, reduced air movement, inspiratory crackles , bronchial breath sounds, rhonchi, other ( dullness at the bases) Gastrointestinal: normoactive bowel sounds, soft, non-tender abdomen, no palpable masses Skin: warm Musculoskeletal: generalized weakness Neurologic: AAOx3, CN II-XII Intact ICD10 Worksheet Patient Problems: Problems Problem Status Onset Altered mental status Acute Bipolar mood disorder Acute Hypoxemia Acute Pneumonia Acute
[2017-02-14] MEDS: OLANZapine DISINTEGR 10 MG TAB PO SCH (19:30)
[2017-02-14] MEDS: LORazepam 1 MG TAB PO SCH (19:30)
[2017-02-15] MEDS: IPRATROPIUM/ALBUTEROL 3 ML DEYVIAL IH SCH ×4 (00:06→17:31)
[2017-02-15] MEDS: HEPARIN 5,000 UNIT/0.5 ML SYR SC SCH ×4 (00:07→20:24)
[2017-02-15] MEDS: D5W 1,000 ML IV SCH (04:54)
[2017-02-15 05:08] LABS: % IMMATURE GRANULYOCYTES 1.5 % (0.0-1.1); ABSOLUTE IMMATURE GRANULOCYTES 0.29 10^3/uL (0.00-0.10); ADD DIFF? NO; ADD MORPH? NO; ADD SCAN? NO; ATYPICAL LYMPHOCYTE FLAG 0 (0-99); FRAGMENT RBC FLAG 0 (0-99); HEMATOCRIT 49.3 % (40.0-51.0); HEMOGLOBIN 15.2 g/dL (13.7-17.5); LEFT SHIFT FLG 20 (0-99); LIPEMIA HEMOLYSIS FLAG 80 (0-99); MEAN CELL HEMOGLOBIN CONCENTR. 30.8 g/dL (32.4-36.7); MEAN CELL VOLUME 100.6 fL (81.5-99.8); MEAN PLATELET VOLUME 11.2 fL (8.7-11.7); PLATELET CLUMPS FLAG 0 (0-99); PLATELET COUNT 116 10^3/uL (150-400)
[2017-02-15 05:23] LABS: ANION GAP 11 mEq/L (8-16); CALCIUM 9.7 mg/dL (8.5-10.4); CARBON DIOXIDE 25 mEq/l (22-31); CHLORIDE 116 mEq/L (97-110); CREATININE 1.6 mg/dL (0.7-1.3); GLOMERULAR FILTRATION RATE 45; GLUCOSE 120 mg/dL (70-100); POTASSIUM 3.9 mEq/L (3.5-5.2); SODIUM 152 mEq/L (134-144)
[2017-02-15] MEDS: INSULIN REGULAR HUMAN 100 UNIT/ML SC SCH ×4 (08:03→20:25)
[2017-02-15] MEDS ORDERED: predniSONE 20 MG TAB PO SCH ×2 (09:00→10:44)
[2017-02-15] MEDS: cefTRIAXone 2 GM in D5W 50 ML IV SCH (09:13)
[2017-02-15] MEDS: AZITHROMYCIN IV 500 MG in D5W 250 ML IV SCH (09:18)
[2017-02-15] MEDS: PANTOPRAZOLE SODIUM 40 MG TAB PO SCH (09:18)
[2017-02-15] MEDS: LORazepam 0.5 MG TAB PO SCH (09:18)
[2017-02-15] MEDS: carBAMazepine ER 200 MG TAB PO SCH ×2 (09:18→20:24)
[2017-02-15] MEDS: DESMOPRESSIN ACETATE 4 MCG/ML INJ IVP SCH (09:22)
[2017-02-15] MEDS ORDERED: PNEUMOCOCCAL 0.5ML VACCINE VIAL IM ONE (10:27)
--- NOTE | 2017-02-15 13:56 | PDINTPN ---
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 History of alcoholism, tobacco use, deafness, bipolar disease. Psychiatric medications included lithium (level slightly sub therapeutic at 0.5 on admission), Zyprexa, Tegretol, and Ativan. Intubated initially secondary to airway protection and probable pneumonia. Self extubated. Lumbar puncture negative on admission. Increased Cr at 1.7. Required high doses Precedex, Ativan and Haldol initially for sedation secondary to altered mental status, alcohol withdrawal, and agitation. BUN and creatinine remain elevated. Has developed DI. Resolved respiratory failure. The patient self-extubated 02/10. O2 requirements have significantly improved. Respiratory acidosis resolved. Bronchopneumonia: With bilateral pulmonary infiltrates. Respiratory failure resolved. On azithromycin and ceftriaxone x7 days. Will stop. On nebs and decreasing steroids. COPD: Secondary to tobacco abuse. Severity unknown. Volume overload/CHF: Chest x-ray consistent with volume overload, with bilateral pleural effusions in addition to the above. Hypoxemia and CO2 retention have improved. Cardiac echo from 02/09 was normal. Alcohol withdrawal: He was on CIWA protocol. This has been stopped.. He does take Ativan in low doses as an outpatient: On these now. No longer agitated. Encephalopathy/AMS: Resolved. Multifactorial, probably secondary to 2, however he may have sustained an mild anoxic injury affecting mental status, and causing DI as well as acute renal failure? Hard to know, but his mental status has significantly improved over the last 48 hours any appears to be fairly close to baseline or perhaps better. He is now able to communicate quite well, even without someone signing. Very pleasant, jovial. Hypernatremia. 152 today - improved. 2/2 DI. Possibly secondary to nephrogenic DI from lithium, and possibly from central DI if he had an initial anoxic event. Now that he is improved we can consider an MRI of the brain in the next several days. On DDAVP. Will add amiloride and hydrochlorothiazide today, consider nonsteroidals tomorrow. Acute renal failure. BUN and creatinine slightly better compared with admission. On hypotonic IV fluids. Urine output remains quite high, c/w DI. Bipolar disorder. He appears to be doing well with this. On Lamictal and Tegretol along with low-dose maintenance Ativan. We are holding his lithium. I have discussed his case with his psychiatrist, Dr. Han at [facility]. We have agreed to continue to hold lithium at this time. Hyperglycemia: ON sliding scale insulin coverage. Improving Homelessness. Lives at the intermediate. Followed at [facility]. An apartment in [place] is being arranged for him and perhaps will be available by the time of discharge? GI prophylaxis: Pantoprazole DVT prophylaxis: On subcu heparin. Plan: Continue care in the intensive care unit. Continue D5W intravenous fluids, replacing it 1-1 mL for previous hour urine output. Cont DDAVP but orally, continuing to follow sodium and urine Osm/Na. Will add low-dose amiloride and hydrochlorothiazide, consider NSAIDs. Continue subcu heparin, insulin. Cont to decrease steroids. Follow chest x-ray intermittently. Follow laboratory. Continue broncho-pulmonary therapies for now. Discontinue antibiotics at this point. Increase activity and ambulation as tolerated 40 minutes of critical care time spent directly with the patient this morning. Discussed with hospitalist, psychiatry, nursing, Renal, and the ICU multi disciplinary team. Subjective: Doing well. Up in chair. Very responsive and pleasant. Does not indicate any problems. Wants to get out of hospital Objective: Vital Signs Temp Pulse Resp BP Pulse Ox 36.9 C 96 20 131/70 H 91 L 02/15/17 12:00 02/15/17 12:00 02/15/17 12:00 02/15/17 10:00 02/15/17 12:00 Laboratory Results 02/15/17 05:00 02/15/17 05:00 02/14/17 02/15/17 02/16/17 05:59 05:59 05:59 Intake Total 5803.5 6475 1650 Output Total 6265 5455 1700 Balance -461.5 1020 -50 PT 13.4 SEC (12.0-15.0) 02/08/17 13:35 INR 1.03 (0.83-1.16) 02/08/17 13:35 Laboratory Tests 02/15/17 05:00 Serum Osmolality 320 H Calcium 9.7 Phosphorus 3.7 D Magnesium 2.0 Physical Exam - Physical Exam General Appearance: alert, no apparent distress, obese EENT: PERRL/EOMI, other (Nasal cannula 2 L) Neck: normal inspection Respiratory: lungs clear (Anteriorly), decreased breath sounds (At bases, coarse ), rhonchi (Minimal), wheezing (Few), No rales Cardiac/Chest: regular rate, rhythm, systolic murmur Abdomen: normal bowel sounds, non-tender, soft, other (Cleared for thin liquids , eating) Male Genitalia: other (Davis catheter in place, still with large volume urine output) Skin: normal color, warm/dry Extremities: pedal edema (Trace) Neuro/Psych: no motor/sensory deficits, No cognition abnormalities ICD10 Worksheet Patient Problems: Problems Problem Status Onset Altered mental status Acute Pneumonia Acute Hypoxemia Acute Bipolar mood disorder Acute
[2017-02-15] MEDS ORDERED: HYDROCHLOROTHIAZIDE 12.5 MG CAP PO SCH (14:45)
--- NOTE | 2017-02-15 15:18 | HOSPPROG ---
Hospitalist Progress Note Assessment/Plan: 56 yo M presenting with acute encephalopathy in setting of acute respiratory failure and bronchopneumonia # acute hypoxic/hypercarbic respiratory failure: initially requiring intubation , related to pna/copd exacerbation as next. Patient self extubated and has been doing well since. # bronchopneumonia: s/p 7 days ctx/azith, bilateral pulmonary infiltrates noted on personal review of cxr # acute exacerbation of diastolic heart failure: volume overload including pulmonary edema/pleural effusions present on admission seems to have improved # copd with acute exacerbation: continue nebs, on oral prednisone, improved # acute encephalopathy: multifactorial and related to critical illness, co2 retention, etoh w/d. Now improved and back to baseline. # Diabetes insipidus: in the setting of being on lithium, with continued hypernatremia and polyuria, started on desmopressin, amiloride and hctz and Na improving but not yet back to baseline. If recovery continues to be slow will consult renal. # etoh abuse and w/d: ciwa scores now very low # lauryn: has not had any real improvement in renal function since admission and continues to have very high urine output as above, continue to monitor # homeless # IP, will downgrade to step down status patient new to my care. Care plan reviewed with Dr. Villela and multidisciplinary team on rounds. Subjective: no singificant overnight events, patient states his breathing is still good, he is thirsty Objective: Vital Signs Temp Pulse Resp BP Pulse Ox 36.9 C 90 20 124/73 H 96 02/15/17 12:00 02/15/17 14:00 02/15/17 14:00 02/15/17 14:00 02/15/17 14:00 Laboratory Results 02/15/17 05:00 02/15/17 05:00 02/14/17 02/15/17 02/16/17 05:59 05:59 05:59 Intake Total 5803.5 6475 2000 Output Total 6265 5455 5 Balance -461.5 1020 -25 PT 13.4 SEC (12.0-15.0) 02/08/17 13:35 INR 1.03 (0.83-1.16) 02/08/17 13:35 awake alert nad anicteric poor dentition rrr no mrg occasional wheeze normal wob soft nt nd ble edema warm dry well perfused alert appropriate, 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 ICD10 Worksheet Patient Problems: Problems Problem Status Onset Altered mental status Acute Pneumonia Acute Hypoxemia Acute Bipolar mood disorder Acute
[2017-02-15] MEDS: AMILORIDE 5 MG TAB PO SCH (15:31)
[2017-02-15] MEDS ORDERED: HYDROCHLOROTHIAZIDE 25 MG TAB ONE (15:34)
[2017-02-15] MEDS: HYDROCHLOROTHIAZIDE 12.5 MG CAP PO SCH (16:00)
[2017-02-15] MEDS: OLANZapine DISINTEGR 10 MG TAB PO SCH (20:24)
[2017-02-15] MEDS: LORazepam 1 MG TAB PO SCH (20:24)
[2017-02-15] MEDS: DESMOPRESSIN 0.1 MG TAB PO SCH (20:25)
[2017-02-16] MEDS: IPRATROPIUM/ALBUTEROL 3 ML DEYVIAL IH SCH ×4 (00:17→18:16)
[2017-02-16] MEDS: D5W 1,000 ML IV SCH (06:00)
[2017-02-16] MEDS: HEPARIN 5,000 UNIT/0.5 ML SYR SC SCH ×3 (06:00→21:08)
[2017-02-16 06:35] LABS: ANION GAP 11 mEq/L (8-16); CALCIUM 9.8 mg/dL (8.5-10.4); CARBON DIOXIDE 26 mEq/l (22-31); CHLORIDE 110 mEq/L (97-110); CREATININE 1.6 mg/dL (0.7-1.3); GLOMERULAR FILTRATION RATE 45; GLUCOSE 163 mg/dL (70-100); POTASSIUM 3.5 mEq/L (3.5-5.2); SODIUM 147 mEq/L (134-144)
[2017-02-16] MEDS: INSULIN REGULAR HUMAN 100 UNIT/ML SC SCH ×4 (08:17→21:09)
[2017-02-16] MEDS: carBAMazepine ER 200 MG TAB PO SCH ×2 (08:49→21:08)
[2017-02-16] MEDS: DESMOPRESSIN 0.1 MG TAB PO SCH ×2 (08:49→21:08)
[2017-02-16] MEDS: LORazepam 0.5 MG TAB PO SCH (08:49)
[2017-02-16] MEDS: HYDROCHLOROTHIAZIDE 12.5 MG CAP PO SCH (08:49)
[2017-02-16] MEDS: AMILORIDE 5 MG TAB PO SCH (09:36)
--- NOTE | 2017-02-16 12:29 | HOSPPROG ---
Hospitalist Progress Note Assessment/Plan: 56 yo M presenting with acute encephalopathy in setting of acute respiratory failure and bronchopneumonia # acute hypoxic/hypercarbic respiratory failure: initially requiring intubation , related to pna/copd exacerbation as next. Patient self extubated and has been doing well since. Currently only requiring o2 at night for the most part. # bronchopneumonia: s/p 7 days ctx/azith and monitoring off of abx, bilateral pulmonary infiltrates noted on personal review of cxr # acute exacerbation of diastolic heart failure: volume overload including pulmonary edema/pleural effusions present on admission, on repeat cxr personally reviewed and noted to be slightly improved # copd with acute exacerbation: continue nebs, on oral prednisone, improved # acute encephalopathy: multifactorial and related to critical illness, co2 retention, etoh w/d. Now improved and back to baseline. # Diabetes insipidus: in the setting of being on lithium, with continued hypernatremia and polyuria, started on desmopressin, amiloride and hctz and Na improving but not yet back to baseline. continues to have very high urine output and high intake as well. No longer giving additional fluids and will monitor. # etoh abuse and w/d: ciwa scores now very low # lauryn: has not had any real improvement in renal function since admission and continues to have very high urine output as above, continue to monitor # homeless # IP Care plan reviewed with Dr. Villela and multidisciplinary team on rounds. Subjective: no significant overnight events, patient currently feeling a bit better Objective: Vital Signs Temp Pulse Resp BP Pulse Ox 36.7 C 86 22 H 135/73 H 95 02/16/17 07:53 02/16/17 11:15 02/16/17 07:53 02/16/17 07:53 02/16/17 11:15 Laboratory Results 02/15/17 05:00 02/16/17 05:40 02/15/17 02/16/17 02/17/17 05:59 05:59 05:59 Intake Total 6475 7492 1290 Output Total 5455 7625 1250 Balance 1020 -133 40 PT 13.4 SEC (12.0-15.0) 02/08/17 13:35 INR 1.03 (0.83-1.16) 02/08/17 13:35 awake alert nad anicteric poor dentition rrr no mrg scattered rhonchi, occ wheeze, normal wob soft nt nd ble edema warm dry well perfused alert appropriate, 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
--- NOTE | 2017-02-16 13:20 | PDINTPN ---
Maternity Floor Supervisor Progress Note Assessment/Plan: Assessment: 56-year-old homeless gentleman found with altered mental status and hypoxemia outside the prison on 02/[facility]. History of alcoholism, tobacco use, deafness, bipolar disease. Psychiatric medications included lithium (level slightly sub therapeutic at 0.5 on admission), Zyprexa, Tegretol, and Ativan. Intubated initially secondary to airway protection and probable pneumonia. Self extubated. Lumbar puncture negative on admission. Increased Cr at 1.7. Required high doses Precedex, Ativan and Haldol initially for sedation secondary to altered mental status, alcohol withdrawal, and agitation. BUN and creatinine remain elevated. Has developed DI. Resolved respiratory failure. The patient self-extubated 02/10. O2 requirements have significantly improved: Now on 2 L. Respiratory acidosis resolved. Bronchopneumonia: With bilateral pulmonary infiltrates, now resolved. On azithromycin and ceftriaxone x7 days, now off. On nebs and decreasing steroids. COPD: Secondary to tobacco abuse. Severity unknown. Volume overload/CHF: Chest x-ray consistent with volume overload, with bilateral pleural effusions in addition to the above, also now resolved. Hypoxemia and CO2 retention have improved. Cardiac echo from 02/09 was normal. Alcohol withdrawal: He was on CIWA protocol. This has been stopped.. He does take Ativan in low doses as an outpatient: On these now. No longer agitated. Encephalopathy/AMS: Resolved. Multifactorial, probably secondary toxic metabolic issues, alcohol withdrawal, etc. However he may have sustained an mild anoxic injury affecting mental status, and causing DI as well as acute renal failure? Hard to know, but his mental status has significantly improved over the last 48 hours any appears to be fairly close to baseline or perhaps better. He is now able to communicate quite well, even without someone signing. Very pleasant, jovial. Hypernatremia. 147 today - improved. 2/2 DI. 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 The latter now seems less likely. On oral DDAVP now, with amiloride and hydrochlorothiazide. Acute renal failure. BUN and creatinine slightly better compared with admission. He has been on D5W replaced mL 4 mL with urine output. Stopping this today. Urine output remains quite high, c/w DI. Bipolar disorder. He appears to be doing well with this. On Lamictal and Tegretol along with low-dose maintenance Ativan. We are holding his lithium. I have discussed his case with his psychiatrist, Dr. Han at [facility]. We have agreed to continue to hold lithium at this time. Hyperglycemia: ON sliding scale insulin coverage. Glucoses remained high at times. Homelessness. [facility] at the prison. Followed at [facility]. An apartment in [place] is being arranged for him and perhaps will be available by the time of discharge? GI prophylaxis: Pantoprazole DVT prophylaxis: On subcu heparin. Plan: Continue care. Will changes status to medical-surgical. Will stop replacing urine output with D5W, and will stop this altogether today. He will be allowed to drink as much fluids as he wants, thus allowed to equilibrate on his own. Cont DDAVP but orally, continuing to follow sodium and urine Osm/Na. Will continue amiloride and hydrochlorothiazide, and consider NSAIDs. Continue subcu heparin, insulin. Cont to decrease steroids. Follow laboratory. Continue broncho-pulmonary therapies for now. Increase activity and ambulation as tolerated 35 minutes of critical care time spent directly with the patient this morning. Discussed with hospitalist, nursing, and the ICU multi disciplinary team. Subjective: Doing well. No complaints. Wants to get out of hospital. Denies pain, shortness of breath. Has walked in the bello with physical therapy. Drinking lots of liquids. Objective: Vital Signs Temp Pulse Resp BP Pulse Ox 36.7 C 86 22 H 135/73 H 95 02/16/17 07:53 02/16/17 11:15 02/16/17 07:53 02/16/17 07:53 02/16/17 11:15 Laboratory Results 02/15/17 05:00 02/16/17 05:40 02/15/17 02/16/17 02/17/17 05:59 05:59 05:59 Intake Total 6476 7498 1290 Output Total 5455 7625 1250 Balance 1020 -133 40 PT 13.4 SEC (12.0-15.0) 02/08/17 13:35 INR 1.03 (0.83-1.16) 02/08/17 13:35 Laboratory Tests 02/16/17 02/16/17 05:30 05:40 Serum Osmolality 311 H Calcium 9.8 Ur Random Sodium 62 CXR: Significantly improved. Effusions resolving. Left hemidiaphragm somewhat high with some associated atelectasis. Physical Exam - Physical Exam General Appearance: alert, no apparent distress, obese EENT: other (Nasal cannula at 2 L) Neck: normal inspection (Large neck) Respiratory: lungs clear (Anteriorly, coarse breath sounds), decreased breath sounds (At bases), rales (Few), wheezing (Minimal), No rhonchi Cardiac/Chest: regular rate, rhythm Abdomen: normal bowel sounds, non-tender, soft (Obese) Male Genitalia: other (Davis catheter remains in place. Large urine output, approximately 7 L with input matching output.) Skin: normal color, warm/dry Extremities: pedal edema (Trace) Neuro/Psych: no motor/sensory deficits, No cognition abnormalities ICD10 Worksheet Patient Problems: Problems Problem Status Onset Altered mental status Acute Pneumonia Acute Hypoxemia Acute Bipolar mood disorder Acute
[2017-02-16 17:17] LABS: ANION GAP 10 mEq/L (8-16); CALCIUM 10.2 mg/dL (8.5-10.4); CARBON DIOXIDE 29 mEq/l (22-31); CHLORIDE 104 mEq/L (97-110); CREATININE 1.7 mg/dL (0.7-1.3); GLOMERULAR FILTRATION RATE 42; GLUCOSE 177 mg/dL (70-100); POTASSIUM 4.6 mEq/L (3.5-5.2); SODIUM 143 mEq/L (134-144)
[2017-02-16] MEDS: OLANZapine DISINTEGR 10 MG TAB PO SCH (21:08)
[2017-02-16] MEDS: LORazepam 1 MG TAB PO SCH (21:08)
[2017-02-17] MEDS: IPRATROPIUM/ALBUTEROL 3 ML DEYVIAL IH SCH ×5 (06:09→22:54)
[2017-02-17 06:13] LABS: ANION GAP 10 mEq/L (8-16); CALCIUM 9.8 mg/dL (8.5-10.4); CARBON DIOXIDE 27 mEq/l (22-31); CHLORIDE 106 mEq/L (97-110); CREATININE 1.7 mg/dL (0.7-1.3); GLOMERULAR FILTRATION RATE 42; GLUCOSE 117 mg/dL (70-100); POTASSIUM 3.9 mEq/L (3.5-5.2); SODIUM 143 mEq/L (134-144)
[2017-02-17] MEDS: HEPARIN 5,000 UNIT/0.5 ML SYR SC SCH ×2 (06:43→13:40)
[2017-02-17] MEDS: predniSONE 20 MG TAB PO SCH (08:23)
[2017-02-17] MEDS: AMILORIDE 5 MG TAB PO SCH (08:23)
[2017-02-17] MEDS: DESMOPRESSIN 0.1 MG TAB PO SCH (08:23)
[2017-02-17] MEDS: carBAMazepine ER 200 MG TAB PO SCH ×2 (08:23→20:24)
[2017-02-17] MEDS: LORazepam 0.5 MG TAB PO SCH (08:23)
[2017-02-17] MEDS: HYDROCHLOROTHIAZIDE 12.5 MG CAP PO SCH (08:24)
[2017-02-17] MEDS: INSULIN REGULAR HUMAN 100 UNIT/ML SC SCH ×4 (08:24→22:59)
--- NOTE | 2017-02-17 10:01 | PDINTPN ---
Binder Operator Progress Note Assessment/Plan: Assessment/plan: 56 M homeless and congenital deaf admitted 02/08 when found with altered MS out side [facility]. Psychiatric medications include [place], Zyprexa, Tegretol, and ativan. Intubated in ED /2 airway protection and possible LLL PNA, but self- extubated. Altered MS treated with multiple medications, but eventually cleared. In the interim develop likely nephrogenic DI (slightly elevated Li level) which has been treated with DDAVP, HCTZ, and IVF. Now refuses O2 at night during observed apneic episodes, but has been generally stable. * Respiratory failure with hypoxemia +/- PNA. Currently stable on OLIVA during the day and should have completed 7 days abx. * COPD- severity unknown. Stable on duoneb and RA during the day * Hypoxemia- appears only at night and patient refusing O2. Not likelt to comply with CPAP as well * ETOH wd- resolved. * Hyernatremia- clinically nephrogenic DI. Sodium has stabilized on DDAVP, but not likely to comply with this regimen as outpatient. Would favor holding for now and giving him free access to water. * JUAN MANUEL- as above, may need renal consult. 02/17/17 11:45 Objective: Vital Signs Temp Pulse Resp BP Pulse Ox 36.6 C 90 20 139/76 H 92 02/17/17 08:00 02/17/17 06:11 02/17/17 06:11 02/17/17 08:00 02/16/17 20:00 Laboratory Results 02/15/17 05:00 02/17/17 05:45 02/16/17 02/17/17 02/18/17 05:59 05:59 05:59 Intake Total 7492 5224 Output Total 0008 6766 Balance -133 -2635 PT 13.4 SEC (12.0-15.0) 02/08/17 13:35 INR 1.03 (0.83-1.16) 02/08/17 13:35 Physical Exam - Physical Exam General Appearance: alert, no apparent distress, obese, other (not engaged with me during exam) EENT: PERRL/EOMI Neck: supple Respiratory: lungs clear, normal breath sounds, No respiratory distress Cardiac/Chest: regular rate, rhythm, No edema Abdomen: normal bowel sounds, soft, No distended Skin: normal color, warm/dry Extremities: No pedal edema Neuro/Psych: alert, normal mood/affect ICD10 Worksheet Patient Problems: Problems Problem Status Onset Altered mental status Acute Bipolar mood disorder Acute Hypoxemia Acute Pneumonia Acute
--- NOTE | 2017-02-17 13:08 | HOSPPROG ---
Hospitalist Progress Note Assessment/Plan: 56 yo M presenting with acute encephalopathy in setting of acute respiratory failure and bronchopneumonia # acute hypoxic/hypercarbic respiratory failure: initially requiring intubation , related to pna/copd exacerbation as next. Patient self extubated and has been doing well since. Currently only requiring o2 at night for the most part. # bronchopneumonia: s/p 7 days ctx/azith and monitoring off of abx, bilateral pulmonary infiltrates noted on personal review of cxr # acute exacerbation of diastolic heart failure: volume overload including pulmonary edema/pleural effusions present on admission, on repeat cxr personally reviewed and noted to be slightly improved # copd with acute exacerbation: continue nebs, on oral prednisone, improved # acute encephalopathy: multifactorial and related to critical illness, co2 retention, etoh w/d. Now improved and back to baseline. # Diabetes insipidus: in the setting of being on lithium, with continued hypernatremia and polyuria, started on desmopressin, amiloride and hctz and Na now normalized. Will dc meds other than hctz and monitor as it will be difficult to dc on any supplemental meds given homelessness. Chronically drinks lots of water. Consider addition of nsaids if Na begins to creep up off desmopressin # etoh abuse and w/d: ciwa scores now very low, patient planning to continue to remain abstinent at this point and [facility] # eddi: untreated, patient is unwilling to continue supplemental o2 at this point , desaturates to the 80s # lauryn: has not had any real improvement in renal function since admission and continues to have very high urine output as above, continue to monitor # homeless # IP Care plan reviewed with Dr. Villela and multidisciplinary team on rounds. Subjective: no significant overnight events, patient doing well Objective: Vital Signs Temp Pulse Resp BP Pulse Ox 36.6 C 95 16 139/76 H 95 02/17/17 08:00 02/17/17 10:54 02/17/17 10:54 02/17/17 08:00 02/17/17 10:54 Laboratory Results 02/15/17 05:00 02/17/17 05:45 02/16/17 02/17/17 02/18/17 05:59 05:59 05:59 Intake Total 7492 5265 Output Total 7625 7900 575 Balance -133 -2635 -575 PT 13.4 SEC (12.0-15.0) 02/08/17 13:35 INR 1.03 (0.83-1.16) 02/08/17 13:35 awake alert nad anicteric poor dentition rrr no mrg scattered rhonchi, occ wheeze, normal wob soft nt nd ble edema warm dry well perfused alert appropriate, 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 ICD10 Worksheet Patient Problems: Problems Problem Status Onset Altered mental status Acute Bipolar mood disorder Acute Hypoxemia Acute Pneumonia Acute
[2017-02-17] MEDS ORDERED: HEPARIN 10,000 UNIT/10 ML MDV IVP ONE (15:33)
[2017-02-17 16:18] LABS: % IMMATURE GRANULYOCYTES 1.3 % (0.0-1.1); ABSOLUTE IMMATURE GRANULOCYTES 0.25 10^3/uL (0.00-0.10); ADD DIFF? NO; ADD MORPH? NO; ADD SCAN? NO; ATYPICAL LYMPHOCYTE FLAG 0 (0-99); FRAGMENT RBC FLAG 0 (0-99); LEFT SHIFT FLG 30 (0-99); LIPEMIA HEMOLYSIS FLAG 80 (0-99); MEAN CELL VOLUME 96.9 fL (81.5-99.8); MEAN PLATELET VOLUME 12.7 fL (8.7-11.7); PLATELET CLUMPS FLAG 0 (0-99); PLATELET COUNT 116 10^3/uL (150-400); RED BLOOD CELL COUNT 5.16 10^6/uL (4.40-6.38); RED CELL DISTRIBUTION WIDTH 13.2 % (11.5-15.2)
[2017-02-17] MEDS: HEPARIN/DEXTROSE 500 ML IV SCH (16:19)
[2017-02-17 16:24] LABS: INR 1.06 (0.83-1.16); PROTIME(PATIENT) 13.7 SEC (12.0-15.0)
[2017-02-17 16:25] LABS: APTT 24.6 SEC (23.0-38.0)
[2017-02-17] MEDS: LORazepam 1 MG TAB PO SCH (20:24)
[2017-02-17] MEDS: OLANZapine DISINTEGR 10 MG TAB PO SCH (20:25)
[2017-02-17] MEDS: ACETAMINOPHEN 325 MG TAB PO PRN (20:25)
[2017-02-17] MEDS: HEPARIN 10,000 UNIT/10 ML MDV IVP PRN (23:37)
[2017-02-18] MEDS: ACETAMINOPHEN 325 MG TAB PO PRN ×2 (02:04→08:49)
[2017-02-18] MEDS: HEPARIN/DEXTROSE 500 ML IV SCH ×2 (04:39→16:09)
[2017-02-18] MEDS: IPRATROPIUM/ALBUTEROL 3 ML DEYVIAL IH SCH (06:03)
[2017-02-18 06:07] LABS: % IMMATURE GRANULYOCYTES 1.4 % (0.0-1.1); ABSOLUTE IMMATURE GRANULOCYTES 0.25 10^3/uL (0.00-0.10); ADD DIFF? NO; ADD MORPH? NO; ADD SCAN? NO; ATYPICAL LYMPHOCYTE FLAG 10 (0-99); FRAGMENT RBC FLAG 0 (0-99); HEMATOCRIT 49.3 % (40.0-51.0); HEMOGLOBIN 15.6 g/dL (13.7-17.5); LEFT SHIFT FLG 40 (0-99); LIPEMIA HEMOLYSIS FLAG 80 (0-99); MEAN CELL HEMOGLOBIN CONCENTR. 31.6 g/dL (32.4-36.7); MEAN CELL VOLUME 97.8 fL (81.5-99.8); MEAN PLATELET VOLUME 12.7 fL (8.7-11.7); PLATELET CLUMPS FLAG 10 (0-99); PLATELET COUNT 114 10^3/uL (150-400); RED BLOOD CELL COUNT 5.04 10^6/uL (4.40-6.38); RED CELL DISTRIBUTION WIDTH 13.4 % (11.5-15.2)
[2017-02-18 07:06] LABS: ANION GAP 11 mEq/L (8-16); CALCIUM 9.7 mg/dL (8.5-10.4); CARBON DIOXIDE 24 mEq/l (22-31); CHLORIDE 104 mEq/L (97-110); CREATININE 1.5 mg/dL (0.7-1.3); GLOMERULAR FILTRATION RATE 48; GLUCOSE 223 mg/dL (70-100); POTASSIUM 3.7 mEq/L (3.5-5.2); SODIUM 139 mEq/L (134-144)
[2017-02-18] MEDS: INSULIN REGULAR HUMAN 100 UNIT/ML SC SCH ×4 (07:55→21:02)
[2017-02-18] MEDS: predniSONE 20 MG TAB PO SCH (08:00)
[2017-02-18] MEDS: HYDROCHLOROTHIAZIDE 25 MG TAB PO SCH (08:00)
[2017-02-18] MEDS: carBAMazepine ER 200 MG TAB PO SCH ×2 (08:00→20:44)
[2017-02-18] MEDS: LORazepam 0.5 MG TAB PO SCH (08:00)
[2017-02-18] MEDS ORDERED: IPRATROPIUM/ALBUTEROL 3 ML DEYVIAL IH PRN (11:28)
[2017-02-18] MEDS ORDERED: IBUPROFEN 200 MG TAB PO PRN (12:28)
--- NOTE | 2017-02-18 12:32 | HOSPPROG ---
Hospitalist Progress Note Assessment/Plan: 56 yo M presenting with acute encephalopathy in setting of acute respiratory failure and bronchopneumonia # acute hypoxic/hypercarbic respiratory failure: initially requiring intubation , related to pna/copd exacerbation, resolved. Still with nocturnal hypoxia but not interested in supplemental o2. # LLE DVT: started on heparin gtt and will add warfarin today. Swelling continues. occurred despite being on ppx while in house. # bronchopneumonia: s/p 7 days ctx/azith and monitoring off of abx, bilateral pulmonary infiltrates noted on personal review of cxr # acute exacerbation of diastolic heart failure: volume overload including pulmonary edema/pleural effusions present on admission, on repeat cxr personally reviewed and noted to be slightly improved # copd with acute exacerbation: continue nebs prn, on oral prednisone taper, improved # acute encephalopathy: multifactorial and related to critical illness, co2 retention, etoh w/d. Now improved and back to baseline. # Diabetes insipidus: in the setting of being on lithium which has been discontinued, started on desmopressin, amiloride and hctz and Na now normalized. Currently only on HCtZ with Na still trending down and in normal range. # bipolar vs schizoaffective: prior records unclear, had been on lithium and carbamazepine barge captain but given na issues will dc lithium. May need stabilization after dc # etoh abuse and w/d: ciwa scores now very low, patient planning to continue to remain abstinent at this point # eddi: untreated, patient is unwilling to continue supplemental o2 at this point , desaturates to the 80s # lauryn: has not had any real improvement in renal function since admission and continues to have very high urine output as above, continue to monitor # homeless # IP Subjective: no significant overnight events, yesterday found to have extensive LLE dvt, today has pain in his left leg Objective: Vital Signs Temp Pulse Resp BP Pulse Ox 36.9 C 92 20 121/86 H 94 02/18/17 07:49 02/18/17 07:49 02/18/17 07:49 02/18/17 08:00 02/18/17 07:49 Laboratory Results 02/18/17 05:50 02/18/17 05:50 02/17/17 02/18/17 02/19/17 05:59 05:59 05:59 Intake Total 5265 4034 Output Total 7900 575 Balance -2635 3459 PT 13.7 SEC (12.0-15.0) 02/17/17 16:00 INR 1.06 (0.83-1.16) 02/17/17 16:00 awake alert nad anicteric poor dentition rrr no mrg scattered rhonchi, occ wheeze, normal wob soft nt nd ble edema warm dry well perfused alert appropriate, 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
[2017-02-18] MEDS: HYDROCODONE/APAP 5/325 TAB PO PRN (12:43)
[2017-02-18] MEDS: HEPARIN 10,000 UNIT/10 ML MDV IVP PRN (12:46)
[2017-02-18] MEDS: traMADol 50 MG TAB PO PRN (16:09)
[2017-02-18] MEDS: WARFARIN SODIUM 5 MG TAB PO SCH (17:44)
[2017-02-18] MEDS: LORazepam 1 MG TAB PO SCH (20:44)
[2017-02-18] MEDS: OLANZapine DISINTEGR 10 MG TAB PO SCH (20:45)
[2017-02-19] MEDS: HYDROCODONE/APAP 5/325 TAB PO PRN ×2 (02:40→14:05)
[2017-02-19] MEDS: HEPARIN/DEXTROSE 500 ML IV SCH (04:11)
[2017-02-19 06:15] LABS: % IMMATURE GRANULYOCYTES 1.5 % (0.0-1.1); ABSOLUTE IMMATURE GRANULOCYTES 0.26 10^3/uL (0.00-0.10); ADD DIFF? NO; ADD MORPH? NO; ADD SCAN? NO; ATYPICAL LYMPHOCYTE FLAG 10 (0-99); FRAGMENT RBC FLAG 0 (0-99); HEMATOCRIT 49.9 % (40.0-51.0); LEFT SHIFT FLG 30 (0-99); LIPEMIA HEMOLYSIS FLAG 80 (0-99); MEAN CELL HEMOGLOBIN 30.7 pg (27.9-34.1); MEAN CELL HEMOGLOBIN CONCENTR. 32.1 g/dL (32.4-36.7); MEAN CELL VOLUME 95.6 fL (81.5-99.8); MEAN PLATELET VOLUME 12.8 fL (8.7-11.7); PLATELET CLUMPS FLAG 0 (0-99); PLATELET COUNT 135 10^3/uL (150-400); RED BLOOD CELL COUNT 5.22 10^6/uL (4.40-6.38); RED CELL DISTRIBUTION WIDTH 13.2 % (11.5-15.2)
[2017-02-19 06:25] LABS: INR 1.07 (0.83-1.16); PROTIME(PATIENT) 13.8 SEC (12.0-15.0)
[2017-02-19 06:56] LABS: ANION GAP 10 mEq/L (8-16); CALCIUM 10.1 mg/dL (8.5-10.4); CARBON DIOXIDE 28 mEq/l (22-31); CHLORIDE 103 mEq/L (97-110); CREATININE 1.5 mg/dL (0.7-1.3); GLOMERULAR FILTRATION RATE 48; GLUCOSE 118 mg/dL (70-100); POTASSIUM 3.9 mEq/L (3.5-5.2); SODIUM 141 mEq/L (134-144)
[2017-02-19] MEDS: INSULIN REGULAR HUMAN 100 UNIT/ML SC SCH ×4 (07:49→21:00)
[2017-02-19] MEDS: LORazepam 0.5 MG TAB PO SCH (09:30)
[2017-02-19] MEDS: HYDROCHLOROTHIAZIDE 25 MG TAB PO SCH (09:30)
[2017-02-19] MEDS: predniSONE 20 MG TAB PO SCH (09:30)
[2017-02-19] MEDS: carBAMazepine ER 200 MG TAB PO SCH ×2 (09:31→21:19)
[2017-02-19] MEDS: WARFARIN SODIUM 5 MG TAB PO SCH (16:10)
--- NOTE | 2017-02-19 17:21 | HOSPPROG ---
Hospitalist Progress Note Assessment/Plan: 56 yo M presenting with acute encephalopathy in setting of acute respiratory failure and bronchopneumonia # acute hypoxic/hypercarbic respiratory failure: initially requiring intubation , related to pna/copd exacerbation, resolved. Still with nocturnal hypoxia but not interested in supplemental o2. # LLE DVT: started on heparin gtt and warfarin, swelling improved. occurred despite being on ppx while in house. # bronchopneumonia: s/p 7 days ctx/azith and monitoring off of abx, bilateral pulmonary infiltrates noted on personal review of cxr # acute exacerbation of diastolic heart failure: volume overload including pulmonary edema/pleural effusions present on admission, on repeat cxr personally reviewed and noted to be improved # copd with acute exacerbation: continue nebs prn, on oral prednisone taper ( currently on 10), improved # acute encephalopathy: multifactorial and related to critical illness, co2 retention, etoh w/d. Now improved and back to baseline. # Diabetes insipidus: in the setting of being on lithium which has been discontinued, started on desmopressin, amiloride and hctz and Na now normalized. Currently only on HCtZ with Na still in normal range. 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 May need stabilization after dc # etoh abuse and w/d: ciwa scores now very low, patient planning to continue to remain abstinent at this point # eddi: untreated, patient is unwilling to continue supplemental o2 at this point , desaturates to the 80s # lauryn: likely atn and some component of post atn diuresis contributing to his very high urine output, improving slowly # homeless # IP Dispo: reviewed care plan with CM, looking at dc to snf, starting paperwork Subjective: no significant overnight events, patient is still having swelling and pain in his arm Objective: Vital Signs Temp Pulse Resp BP Pulse Ox 36.9 C 86 18 123/67 H 96 02/19/17 08:50 02/19/17 08:50 02/19/17 08:50 02/19/17 09:30 02/19/17 08:50 Laboratory Results 02/19/17 06:10 02/19/17 06:10 02/18/17 02/19/17 02/20/17 05:59 05:59 05:59 Intake Total 4034 6052 Output Total 575 Balance 3459 6052 PT 13.8 SEC (12.0-15.0) 02/19/17 06:10 INR 1.07 (0.83-1.16) 02/19/17 06:10 awake alert nad anicteric poor dentition rrr no mrg scattered rhonchi, occ wheeze, normal wob soft nt nd ble edema warm dry well perfused alert appropriate, 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 ICD10 Worksheet Patient Problems: Problems Problem Status Onset Altered mental status Acute Bipolar mood disorder Acute Hypoxemia Acute Pneumonia Acute
[2017-02-19] MEDS: LORazepam 1 MG TAB PO SCH (21:19)
[2017-02-19] MEDS: OLANZapine DISINTEGR 10 MG TAB PO SCH (21:21)
[2017-02-20] MEDS: LORazepam 0.5 MG TAB PO SCH ×2 (00:36→10:49)
[2017-02-20] MEDS: ENOXAPARIN 100 MG/ML SYR SC SCH ×3 (05:33→21:33)
[2017-02-20 05:48] LABS: % IMMATURE GRANULYOCYTES 1.5 % (0.0-1.1); ABSOLUTE IMMATURE GRANULOCYTES 0.23 10^3/uL (0.00-0.10); ADD DIFF? NO; ADD MORPH? NO; ADD SCAN? NO; ATYPICAL LYMPHOCYTE FLAG 10 (0-99); FRAGMENT RBC FLAG 0 (0-99); HEMATOCRIT 48.9 % (40.0-51.0); HEMOGLOBIN 15.9 g/dL (13.7-17.5); LEFT SHIFT FLG 40 (0-99); LIPEMIA HEMOLYSIS FLAG 80 (0-99); MEAN CELL HEMOGLOBIN 30.9 pg (27.9-34.1); MEAN CELL HEMOGLOBIN CONCENTR. 32.5 g/dL (32.4-36.7); MEAN CELL VOLUME 95.1 fL (81.5-99.8); MEAN PLATELET VOLUME 12.9 fL (8.7-11.7); PLATELET CLUMPS FLAG 10 (0-99); PLATELET COUNT 122 10^3/uL (150-400); RED BLOOD CELL COUNT 5.14 10^6/uL (4.40-6.38); RED CELL DISTRIBUTION WIDTH 13.1 % (11.5-15.2)
[2017-02-20 05:53] LABS: INR 1.35 (0.83-1.16); PROTIME(PATIENT) 16.7 SEC (12.0-15.0)
[2017-02-20 06:10] LABS: ANION GAP 11 mEq/L (8-16); CALCIUM 9.9 mg/dL (8.5-10.4); CARBON DIOXIDE 28 mEq/l (22-31); CHLORIDE 100 mEq/L (97-110); CREATININE 1.5 mg/dL (0.7-1.3); GLOMERULAR FILTRATION RATE 48; GLUCOSE 201 mg/dL (70-100); POTASSIUM 3.6 mEq/L (3.5-5.2); SODIUM 139 mEq/L (134-144)
[2017-02-20] MEDS: HYDROCHLOROTHIAZIDE 25 MG TAB PO SCH (10:49)
[2017-02-20] MEDS: predniSONE 10 MG TAB PO SCH (10:50)
[2017-02-20] MEDS: carBAMazepine ER 200 MG TAB PO SCH (14:00)
[2017-02-20] MEDS: INSULIN REGULAR HUMAN 100 UNIT/ML SC SCH ×4 (14:00→21:36)
[2017-02-20] MEDS: HYDROCODONE/APAP 5/325 TAB PO PRN (14:06)
--- NOTE | 2017-02-20 14:56 | HOSPPROG ---
Hospitalist Progress Note Assessment/Plan: DIAGNOSES: # acute hypoxemic resp failure # COPD exacerbation # acute viral respiratory infection with bronchopneumonia, rhino virus documented on respiratory panel # acute encephalopathy, multifactorial, resolved # diabetes insipidus in the setting of lithium therapy; lithium discontinued, currently on hydrochlorothiazide # Acute DVT of left leg, started on anticoagulant therapy full-dose # mild acute alcohol withdrawal, resolved # mild acute kidney injury, pre renal hypodynamic etiology # question of possible acute diastolic heart failure, currently improved # chronic bipolar and schizoaffective disorder, stable on therapy; his lithium has been discontinued due to diabetes insipidus and home need to be followed with his outpatient treating practitioners closely PLANS: -At this point he is medically stable for discharge but we are waiting for approval for halfway facility since he has some gait instability. It is anticipated that he will likely be able to get to halfway center in 1 -2 days -continue current pulmonary medications -continue anticoagulant with bridging therapy SUBJECTIVE: Not short of breath, not coughing, no chest pain No fever symptoms Still some mild discomfort in his left leg from DVT OBJECTIVE Vitals reviewed: Stable without fever Exam: alert oriented skin warm dry color ok resps not labored lungs clear BSs though extremely diminished heart regular abd soft nondistended nontender, bowel sounds present limbs warm, still some edema of the left calf iv site ok Laboratory data: INR is now up to 1.35, will need ongoing Lovenox until therapeutic Objective: Vital Signs Temp Pulse Resp BP Pulse Ox 37.0 C 102 H 18 127/87 H 90 L 02/20/17 08:00 02/20/17 08:00 02/20/17 08:00 02/20/17 10:49 02/20/17 08:00 Laboratory Results 02/20/17 05:31 02/20/17 05:31 02/19/17 02/20/17 02/21/17 06:59 06:59 06:59 Intake Total 6052 3080 Balance 6052 3083 PT 16.7 SEC (12.0-15.0) H 02/20/17 05:31 INR 1.35 (0.83-1.16) H 02/20/17 05:31 ICD10 Worksheet Patient Problems: Problems Problem Status Onset Altered mental status Acute Bipolar mood disorder Acute Hypoxemia Acute Pneumonia Acute
[2017-02-20] MEDS: WARFARIN SODIUM 5 MG TAB PO SCH (17:23)
[2017-02-20] MEDS: LORazepam 1 MG TAB PO SCH (21:31)
[2017-02-20] MEDS: OLANZapine DISINTEGR 10 MG TAB PO SCH (21:32)
[2017-02-20] MEDS: carBAMazepine ER 400 MG TAB PO SCH (21:32)
[2017-02-21 05:37] LABS: INR 1.75 (0.83-1.16); PROTIME(PATIENT) 20.5 SEC (12.0-15.0)
[2017-02-21] MEDS: HYDROCHLOROTHIAZIDE 25 MG TAB PO SCH (09:43)
[2017-02-21] MEDS: carBAMazepine ER 200 MG TAB PO SCH (09:44)
[2017-02-21] MEDS: HYDROCODONE/APAP 5/325 TAB PO PRN (09:44)
[2017-02-21] MEDS: predniSONE 10 MG TAB PO SCH (09:44)
[2017-02-21] MEDS: LORazepam 0.5 MG TAB PO SCH (09:46)
[2017-02-21] MEDS: ENOXAPARIN 100 MG/ML SYR SC SCH ×2 (09:47→20:56)
[2017-02-21] MEDS: INSULIN REGULAR HUMAN 100 UNIT/ML SC SCH ×4 (12:00→20:56)
--- NOTE | 2017-02-21 15:52 | HOSPPROG ---
Hospitalist Progress Note Assessment/Plan: DIAGNOSES: # acute hypoxemic resp failure # COPD exacerbation # acute viral respiratory infection with bronchopneumonia, rhino virus documented on respiratory panel # acute encephalopathy, multifactorial, resolved # diabetes insipidus in the setting of lithium therapy; lithium discontinued, currently on hydrochlorothiazide # Acute DVT of left leg, started on anticoagulant therapy full-dose # mild acute alcohol withdrawal, resolved # mild acute kidney injury, pre renal hypodynamic etiology # question of possible acute diastolic heart failure, currently improved # chronic bipolar and schizoaffective disorder, stable on therapy; his lithium has been discontinued due to diabetes insipidus and home need to be followed with his outpatient treating practitioners closely PLANS: -At this point he is medically stable for discharge but we are waiting for approval for residential facility since he has some gait instability. It is unlikely that he will likely be able to get to residential center in next day or two due to waiting for government agency approval -continue current pulmonary medications -continue anticoagulant with bridging therapy SUBJECTIVE: feels well overall no pain no sob OBJECTIVE Vitals reviewed: Stable without fever Exam: alert oriented skin warm dry color ok resps not labored lungs clear BSs though extremely diminished heart regular abd soft nondistended nontender, bowel sounds present limbs warm, still some edema of the left calf iv site ok Laboratory data: INR is now up to 1.75, will need ongoing Lovenox until therapeutic Objective: Vital Signs Temp Pulse Resp BP Pulse Ox 36.4 C 98 18 134/96 H 94 02/21/17 15:28 02/21/17 15:28 02/21/17 15:28 02/21/17 15:28 02/21/17 15:28 Laboratory Results 02/20/17 05:31 02/20/17 05:31 02/20/17 02/21/17 02/22/17 06:59 06:59 06:59 Intake Total 3083 1025 Balance 3083 1025 PT 20.5 SEC (12.0-15.0) H 02/21/17 04:55 INR 1.75 (0.83-1.16) H 02/21/17 04:55 ICD10 Worksheet Patient Problems: Problems Problem Status Onset Altered mental status Acute Bipolar mood disorder Acute Hypoxemia Acute Pneumonia Acute
[2017-02-21] MEDS: WARFARIN SODIUM 5 MG TAB PO SCH (16:20)
[2017-02-21] MEDS: carBAMazepine ER 400 MG TAB PO SCH (20:56)
[2017-02-21] MEDS: OLANZapine DISINTEGR 10 MG TAB PO SCH (20:56)
[2017-02-21] MEDS: LORazepam 1 MG TAB PO SCH (20:56)
[2017-02-22 05:50] LABS: INR 1.91 (0.83-1.16)
[2017-02-22] MEDS: INSULIN REGULAR HUMAN 100 UNIT/ML SC SCH ×4 (09:00→20:27)
[2017-02-22] MEDS: ENOXAPARIN 100 MG/ML SYR SC SCH ×2 (09:17→20:24)
[2017-02-22] MEDS: predniSONE 10 MG TAB PO SCH (09:17)
[2017-02-22] MEDS: LORazepam 0.5 MG TAB PO SCH (09:17)
[2017-02-22] MEDS: HYDROCHLOROTHIAZIDE 25 MG TAB PO SCH (09:18)
[2017-02-22] MEDS: carBAMazepine ER 200 MG TAB PO SCH (10:54)
--- NOTE | 2017-02-22 16:22 | HOSPPROG ---
Hospitalist Progress Note Assessment/Plan: DIAGNOSES: # acute hypoxemic resp failure # COPD exacerbation # acute viral respiratory infection with bronchopneumonia, rhino virus documented on respiratory panel # acute encephalopathy, multifactorial, resolved # diabetes insipidus in the setting of lithium therapy; lithium discontinued, currently on hydrochlorothiazide # Acute DVT of left leg, started on anticoagulant therapy full-dose # mild acute alcohol withdrawal, resolved # mild acute kidney injury, pre renal hypodynamic etiology # question of possible acute diastolic heart failure, currently improved # chronic bipolar and schizoaffective disorder, stable on therapy; his lithium has been discontinued due to diabetes insipidus and home need to be followed with his outpatient treating practitioners closely PLANS: -At this point he is medically stable for discharge but we are waiting for approval for shelter facility since he has some gait instability. It is unlikely that he will likely be able to get to shelter center in next day or two due to waiting for government agency approval -continue current pulmonary medications -continue anticoagulant with bridging therapy SUBJECTIVE: again feels well, no sob or other sxs OBJECTIVE Vitals reviewed: Stable without fever Exam: alert oriented skin warm dry color ok resps not labored lungs clear BSs though extremely diminished heart regular abd soft nondistended nontender, bowel sounds present limbs warm, still some edema of the left calf iv site ok Laboratory data: INR is now up to 1.91, will need ongoing Lovenox until therapeutic likely one more day Objective: Vital Signs Temp Pulse Resp BP Pulse Ox 37.2 C 86 16 105/68 88 L 02/22/17 08:00 02/22/17 08:00 02/22/17 08:00 02/22/17 09:18 02/22/17 08:00 Laboratory Results 02/20/17 05:31 02/20/17 05:31 02/21/17 02/22/17 02/23/17 06:59 06:59 06:59 Intake Total 1025 Balance 1025 PT 22.0 SEC (12.0-15.0) H 02/22/17 05:18 INR 1.91 (0.83-1.16) H 02/22/17 05:18 ICD10 Worksheet Patient Problems: Problems Problem Status Onset Altered mental status Acute Bipolar mood disorder Acute Hypoxemia Acute Pneumonia Acute
[2017-02-22] MEDS: WARFARIN SODIUM 5 MG TAB PO SCH (18:54)
[2017-02-22] MEDS: OLANZapine DISINTEGR 10 MG TAB PO SCH (20:23)
[2017-02-22] MEDS: carBAMazepine ER 400 MG TAB PO SCH (20:24)
[2017-02-22] MEDS: LORazepam 1 MG TAB PO SCH (20:24)
[2017-02-23 05:14] LABS: INR 1.77 (0.83-1.16); PROTIME(PATIENT) 20.7 SEC (12.0-15.0)
[2017-02-23] MEDS: HYDROCHLOROTHIAZIDE 25 MG TAB PO SCH (08:15)
[2017-02-23] MEDS: predniSONE 10 MG TAB PO SCH (08:15)
[2017-02-23] MEDS: HYDROCODONE/APAP 5/325 TAB PO PRN (08:15)
[2017-02-23] MEDS: carBAMazepine ER 200 MG TAB PO SCH (08:15)
[2017-02-23] MEDS: LORazepam 0.5 MG TAB PO SCH (08:16)
[2017-02-23] MEDS: INSULIN REGULAR HUMAN 100 UNIT/ML SC SCH ×4 (08:17→20:30)
[2017-02-23] MEDS: ENOXAPARIN 100 MG/ML SYR SC SCH ×2 (08:17→20:30)
--- NOTE | 2017-02-23 15:28 | HOSPPROG ---
Hospitalist Progress Note Assessment/Plan: DIAGNOSES: # acute hypoxemic resp failure # COPD exacerbation # acute viral respiratory infection with bronchopneumonia, rhino virus documented on respiratory panel # acute encephalopathy, multifactorial, resolved # diabetes insipidus in the setting of lithium therapy; lithium discontinued, currently on hydrochlorothiazide for DI # Acute DVT of left leg, started on anticoagulant therapy full-dose # mild acute alcohol withdrawal, resolved # mild acute kidney injury, pre renal hypodynamic etiology, resolved # question of possible acute diastolic heart failure, currently improved # chronic bipolar and schizoaffective disorder, stable on therapy; his lithium has been discontinued due to diabetes insipidus and home need to be followed with his outpatient treating practitioners closely PLANS: -At this point he is medically stable for discharge but we are still waiting for PASSR approval for group home facility since he has some gait instability. I am hoping we can get him out tomorrow but out of our hands -continue current pulmonary medications -continue anticoagulant with bridging therapy SUBJECTIVE: again feels well, no sob or other sxs OBJECTIVE Vitals reviewed: Stable without fever Exam: alert oriented skin warm dry color ok resps not labored lungs clear BSs though extremely diminished heart regular abd soft nondistended nontender, bowel sounds present limbs warm, still some edema of the left calf iv site ok Laboratory data: INR is now 1.77, still needing lovenox Objective: Vital Signs Temp Pulse Resp BP Pulse Ox 36.7 C 98 20 119/84 H 92 02/23/17 15:00 02/23/17 15:00 02/23/17 15:00 02/23/17 15:00 02/23/17 15:00 Laboratory Results 02/20/17 05:31 02/20/17 05:31 PT 20.7 SEC (12.0-15.0) H 02/23/17 04:32 INR 1.77 (0.83-1.16) H 02/23/17 04:32 ICD10 Worksheet Patient Problems: Problems Problem Status Onset Altered mental status Acute Bipolar mood disorder Acute Hypoxemia Acute Pneumonia Acute
[2017-02-23] MEDS ORDERED: WARFARIN SODIUM 5 MG TAB PO ONE (16:00)
[2017-02-23] MEDS: traMADol 50 MG TAB PO PRN (17:56)
[2017-02-23] MEDS: LORazepam 1 MG TAB PO SCH (20:29)
[2017-02-23] MEDS: OLANZapine DISINTEGR 10 MG TAB PO SCH (20:29)
[2017-02-23] MEDS: carBAMazepine ER 400 MG TAB PO SCH (20:30)
[2017-02-24 06:38] LABS: INR 1.47 (0.83-1.16); PROTIME(PATIENT) 17.8 SEC (12.0-15.0)
[2017-02-24] MEDS: INSULIN REGULAR HUMAN 100 UNIT/ML SC SCH ×4 (09:58→22:01)
[2017-02-24] MEDS: carBAMazepine ER 200 MG TAB PO SCH (10:00)
[2017-02-24] MEDS: predniSONE 10 MG TAB PO SCH (10:00)
[2017-02-24] MEDS: traMADol 50 MG TAB PO PRN ×2 (10:00→17:27)
[2017-02-24] MEDS: LORazepam 0.5 MG TAB PO SCH (10:00)
[2017-02-24] MEDS: HYDROCHLOROTHIAZIDE 25 MG TAB PO SCH (10:00)
[2017-02-24] MEDS: ENOXAPARIN 100 MG/ML SYR SC SCH ×2 (10:01→22:01)
[2017-02-24 10:55] LABS: % IMMATURE GRANULYOCYTES 0.8 % (0.0-1.1); ABSOLUTE IMMATURE GRANULOCYTES 0.12 10^3/uL (0.00-0.10); ADD DIFF? NO; ADD MORPH? NO; ADD SCAN? NO; ATYPICAL LYMPHOCYTE FLAG 10 (0-99); FRAGMENT RBC FLAG 0 (0-99); HEMATOCRIT 48.2 % (40.0-51.0); HEMOGLOBIN 15.6 g/dL (13.7-17.5); LEFT SHIFT FLG 30 (0-99); LIPEMIA HEMOLYSIS FLAG 80 (0-99); MEAN CELL HEMOGLOBIN 30.8 pg (27.9-34.1); MEAN CELL HEMOGLOBIN CONCENTR. 32.4 g/dL (32.4-36.7); MEAN CELL VOLUME 95.1 fL (81.5-99.8); MEAN PLATELET VOLUME 12.5 fL (8.7-11.7); PLATELET CLUMPS FLAG 10 (0-99); PLATELET COUNT 139 10^3/uL (150-400); RED BLOOD CELL COUNT 5.07 10^6/uL (4.40-6.38); RED CELL DISTRIBUTION WIDTH 13.1 % (11.5-15.2)
[2017-02-24 11:03] LABS: ANION GAP 13 mEq/L (8-16); CALCIUM 9.4 mg/dL (8.5-10.4); CARBON DIOXIDE 25 mEq/l (22-31); CHLORIDE 97 mEq/L (97-110); CREATININE 1.5 mg/dL (0.7-1.3); GLOMERULAR FILTRATION RATE 48; GLUCOSE 123 mg/dL (70-100); POTASSIUM 3.2 mEq/L (3.5-5.2); SODIUM 135 mEq/L (134-144)
[2017-02-24] MEDS ORDERED: PROTOCOL POTASSIUM 1 DOSE MISC PRN (12:21)
[2017-02-24] MEDS ORDERED: WARFARIN SODIUM 5 MG TAB PO ONE (16:00)
[2017-02-24] MEDS: FLUTICASONE/SALMETER 250/50MCG DISKUS IH SCH ×2 (17:28→23:40)
--- NOTE | 2017-02-24 17:58 | HOSPPROG ---
Hospitalist Progress Note Assessment/Plan: * Acute respiratory failure s/p extubation * Rhino-virus with suspected secondary bacterial PNA -off abx * COPD exacerbation -DC PO steroids - start advair * Metabolic encephalopathy * DI due to [place] DC'd -PO HCTZ - follow Na * ARF - still not back to baseline -renal US okay * Acute left leg DVT -Lovenox with transition to warfarin * Bipolar/schizoaffective disorder -Tegretol, Zyprexa * congenital deafness Subjective: no complaints. Objective: Vital Signs Temp Pulse Resp BP Pulse Ox 36.2 C 102 H 20 134/87 H 93 02/24/17 16:00 02/24/17 16:00 02/24/17 16:00 02/24/17 16:00 02/24/17 16:00 Laboratory Results 02/24/17 04:46 02/24/17 04:46 PT 17.8 SEC (12.0-15.0) H 02/24/17 04:46 INR 1.47 (0.83-1.16) H 02/24/17 04:46 CXR viewed, my personal interpretation is : negative Renal US - no hydro - Physical Exam Constitutional: no apparent distress, appears nourished, not in pain Cardiovascular: regular rate and rhythym, no murmur, rub, or gallop Respiratory: no respiratory distress, no rales or rhonchi, clear to auscultation Gastrointestinal: normoactive bowel sounds, soft, non-tender abdomen, no palpable masses Skin: no rashes or abrasions, no fluctuance, no induration Neurologic: sensation intact bilaterally Psychiatric: flat affect, poor insight, poor judgement, poor memory ICD10 Worksheet Patient Problems: Problems Problem Status Onset Altered mental status Acute Bipolar mood disorder Acute Hypoxemia Acute Pneumonia Acute
[2017-02-24 18:44] LABS: POTASSIUM 3.3 mEq/L (3.5-5.2)
[2017-02-24] MEDS: OLANZapine DISINTEGR 10 MG TAB PO SCH (22:01)
[2017-02-24] MEDS: LORazepam 1 MG TAB PO SCH (22:01)
[2017-02-24] MEDS: carBAMazepine ER 400 MG TAB PO SCH (22:01)
[2017-02-24] MEDS ORDERED: POTASSIUM CL 10 MEQ TAB PO ONE (22:52)
[2017-02-25 05:42] LABS: % IMMATURE GRANULYOCYTES 1.1 % (0.0-1.1); ABSOLUTE IMMATURE GRANULOCYTES 0.15 10^3/uL (0.00-0.10); ADD DIFF? NO; ADD MORPH? NO; ADD SCAN? NO; ATYPICAL LYMPHOCYTE FLAG 10 (0-99); FRAGMENT RBC FLAG 0 (0-99); HEMATOCRIT 47.5 % (40.0-51.0); HEMOGLOBIN 15.7 g/dL (13.7-17.5); LEFT SHIFT FLG 20 (0-99); LIPEMIA HEMOLYSIS FLAG 80 (0-99); MEAN CELL HEMOGLOBIN 30.5 pg (27.9-34.1); MEAN CELL HEMOGLOBIN CONCENTR. 33.1 g/dL (32.4-36.7); MEAN CELL VOLUME 92.4 fL (81.5-99.8); MEAN PLATELET VOLUME 11.4 fL (8.7-11.7); PLATELET CLUMPS FLAG 0 (0-99); PLATELET COUNT 149 10^3/uL (150-400); RED BLOOD CELL COUNT 5.14 10^6/uL (4.40-6.38); RED CELL DISTRIBUTION WIDTH 12.8 % (11.5-15.2)
[2017-02-25 06:03] LABS: ANION GAP 11 mEq/L (8-16); CALCIUM 9.8 mg/dL (8.5-10.4); CARBON DIOXIDE 25 mEq/l (22-31); CHLORIDE 102 mEq/L (97-110); CREATININE 1.3 mg/dL (0.7-1.3); GLOMERULAR FILTRATION RATE 57; GLUCOSE 133 mg/dL (70-100); POTASSIUM 3.2 mEq/L (3.5-5.2); SODIUM 138 mEq/L (134-144)
[2017-02-25 06:23] LABS: INR 1.93 (0.83-1.16); PROTIME(PATIENT) 22.2 SEC (12.0-15.0)
[2017-02-25] MEDS: FLUTICASONE/SALMETER 250/50MCG DISKUS IH SCH ×2 (08:15→20:20)
[2017-02-25] MEDS: LORazepam 0.5 MG TAB PO SCH (13:13)
[2017-02-25] MEDS: traMADol 50 MG TAB PO PRN (13:13)
[2017-02-25] MEDS: carBAMazepine ER 200 MG TAB PO SCH (13:14)
[2017-02-25] MEDS ORDERED: POTASSIUM CL 20 MEQ TAB PO ONE (13:15)
[2017-02-25] MEDS: INSULIN REGULAR HUMAN 100 UNIT/ML SC SCH ×4 (13:15→21:37)
[2017-02-25] MEDS: ENOXAPARIN 100 MG/ML SYR SC SCH ×2 (13:15→21:17)
[2017-02-25] MEDS: POTASSIUM Cl (KCl) 100 ML IV SCH ×3 (13:19→13:22)
[2017-02-25] MEDS: HYDROCHLOROTHIAZIDE 25 MG TAB PO SCH (14:54)
[2017-02-25] MEDS ORDERED: WARFARIN SODIUM 5 MG TAB PO ONE (16:00)
--- NOTE | 2017-02-25 16:44 | HOSPPROG ---
Hospitalist Progress Note Assessment/Plan: * Acute respiratory failure s/p extubation * Rhino-virus with suspected secondary bacterial PNA -off abx * COPD exacerbation -DC PO steroids - start advair * Metabolic encephalopathy * DI due to [place] DC'd -PO HCTZ - follow Na * ARF - still not back to baseline -renal US okay * Acute left leg DVT -Lovenox with transition to warfarin * Bipolar/schizoaffective disorder -Tegretol, Zyprexa * congenital deafness Subjective: no new complaints. Objective: Vital Signs Temp Pulse Resp BP Pulse Ox 36.7 C 66 16 126/65 H 91 L 02/25/17 15:19 02/25/17 15:19 02/25/17 15:19 02/25/17 15:19 02/25/17 15:19 Laboratory Results 02/25/17 05:11 02/25/17 05:11 02/24/17 02/25/17 02/26/17 05:59 05:59 05:59 Intake Total 1200 Balance 1200 PT 22.2 SEC (12.0-15.0) H 02/25/17 05:11 INR 1.93 (0.83-1.16) H 02/25/17 05:11 - Physical Exam Constitutional: no apparent distress, appears nourished, not in pain Cardiovascular: regular rate and rhythym, no murmur, rub, or gallop Respiratory: no respiratory distress, no rales or rhonchi, clear to auscultation Gastrointestinal: normoactive bowel sounds, soft, non-tender abdomen, no palpable masses Skin: no rashes or abrasions, no fluctuance, no induration Neurologic: AAOx3, sensation intact bilaterally Psychiatric: interacting appropriately, not anxious, not encephalopathic, thought process linear ICD10 Worksheet Patient Problems: Problems Problem Status Onset Altered mental status Acute Bipolar mood disorder Acute Hypoxemia Acute Pneumonia Acute
[2017-02-25 18:48] LABS: POTASSIUM 3.7 mEq/L (3.5-5.2)
[2017-02-25] MEDS ORDERED: POTASSIUM CL 10 MEQ TAB PO ONE (19:16)
[2017-02-25] MEDS: carBAMazepine ER 400 MG TAB PO SCH (21:17)
[2017-02-25] MEDS: OLANZapine DISINTEGR 10 MG TAB PO SCH (21:18)
[2017-02-25] MEDS: LORazepam 1 MG TAB PO SCH (21:18)
[2017-02-26 05:43] LABS: ADD DIFF? NO; ADD MORPH? NO; ADD SCAN? NO; ATYPICAL LYMPHOCYTE FLAG 10 (0-99); FRAGMENT RBC FLAG 0 (0-99); HEMATOCRIT 46.8 % (40.0-51.0); HEMOGLOBIN 15.6 g/dL (13.7-17.5); LEFT SHIFT FLG 10 (0-99); LIPEMIA HEMOLYSIS FLAG 80 (0-99); MEAN CELL HEMOGLOBIN 31.1 pg (27.9-34.1); MEAN CELL HEMOGLOBIN CONCENTR. 33.3 g/dL (32.4-36.7); MEAN CELL VOLUME 93.2 fL (81.5-99.8); MEAN PLATELET VOLUME 11.3 fL (8.7-11.7); PLATELET CLUMPS FLAG 0 (0-99); PLATELET COUNT 144 10^3/uL (150-400); RED BLOOD CELL COUNT 5.02 10^6/uL (4.40-6.38)
[2017-02-26 05:52] LABS: INR 1.9 (0.83-1.16); PROTIME(PATIENT) 21.9 SEC (12.0-15.0)
[2017-02-26 06:05] LABS: ANION GAP 10 mEq/L (8-16); CARBON DIOXIDE 27 mEq/l (22-31); CHLORIDE 102 mEq/L (97-110); CREATININE 1.4 mg/dL (0.7-1.3); GLOMERULAR FILTRATION RATE 52; GLUCOSE 147 mg/dL (70-100); MAGNESIUM 2.1 mg/dL (1.6-2.3); POTASSIUM 3.4 mEq/L (3.5-5.2); SODIUM 139 mEq/L (134-144)
[2017-02-26] MEDS: INSULIN REGULAR HUMAN 100 UNIT/ML SC SCH ×4 (09:24→22:10)
[2017-02-26] MEDS: LORazepam 0.5 MG TAB PO SCH (09:27)
[2017-02-26] MEDS: HYDROCHLOROTHIAZIDE 25 MG TAB PO SCH (09:27)
[2017-02-26] MEDS: carBAMazepine ER 200 MG TAB PO SCH (09:27)
[2017-02-26] MEDS: ENOXAPARIN 100 MG/ML SYR SC SCH ×2 (09:27→21:57)
[2017-02-26] MEDS ORDERED: POTASSIUM CL 10 MEQ TAB PO ONE ×3 (09:32→22:19)
[2017-02-26] MEDS: ACETAMINOPHEN 325 MG TAB PO PRN (09:36)
[2017-02-26] MEDS: FLUTICASONE/SALMETER 250/50MCG DISKUS IH SCH ×2 (09:45→21:54)
[2017-02-26] MEDS ORDERED: WARFARIN SODIUM 7.5 MG TAB PO ONE (16:00)
[2017-02-26] MEDS ORDERED: WARFARIN SODIUM 2.5 MG TAB PO ONE (16:00)
[2017-02-26] MEDS ORDERED: PROTOCOL POTASSIUM 1 DOSE MISC PRN (16:13)
--- NOTE | 2017-02-26 16:42 | HOSPPROG ---
Hospitalist Progress Note Assessment/Plan: * Acute respiratory failure s/p extubation * Rhino-virus with suspected secondary bacterial PNA -off abx * COPD exacerbation -DC PO steroids - start advair * Metabolic encephalopathy * DI due to [place] DC'd -PO HCTZ - follow Na * ARF - still not back to baseline -renal US okay * Acute left leg DVT -Lovenox with transition to warfarin * Bipolar/schizoaffective disorder -Tegretol, Zyprexa * congenital deafness Subjective: no new complaints. awaits placement Objective: Vital Signs Temp Pulse Resp BP Pulse Ox 36.8 C 80 15 134/89 H 94 02/26/17 16:00 02/26/17 16:00 02/26/17 16:00 02/26/17 16:00 02/26/17 16:00 Laboratory Results 02/26/17 05:11 02/26/17 05:11 02/25/17 02/26/17 02/27/17 05:59 05:59 05:59 Intake Total 1200 600 Balance 1200 600 PT 21.9 SEC (12.0-15.0) H 02/26/17 05:11 INR 1.90 (0.83-1.16) H 02/26/17 05:11 - Physical Exam Constitutional: no apparent distress, appears nourished, not in pain Ears, Nose, Mouth, Throat: hard of hearing (reads lips), No hearing normal Cardiovascular: regular rate and rhythym, no murmur, rub, or gallop Respiratory: no respiratory distress, no rales or rhonchi, clear to auscultation Gastrointestinal: normoactive bowel sounds, soft, non-tender abdomen, no palpable masses Skin: no rashes or abrasions, no fluctuance, no induration Neurologic: AAOx3, sensation intact bilaterally Psychiatric: interacting appropriately, not anxious, not encephalopathic, thought process linear ICD10 Worksheet Patient Problems: Problems Problem Status Onset Altered mental status Acute Bipolar mood disorder Acute Hypoxemia Acute Pneumonia Acute
[2017-02-26 18:18] LABS: POTASSIUM 3.4 mEq/L (3.5-5.2)
[2017-02-26] MEDS: carBAMazepine ER 400 MG TAB PO SCH (21:57)
[2017-02-26] MEDS: OLANZapine DISINTEGR 10 MG TAB PO SCH (21:57)
[2017-02-26] MEDS: LORazepam 1 MG TAB PO SCH (21:58)
[2017-02-27 05:55] LABS: INR 2.11 (0.83-1.16); PROTIME(PATIENT) 23.8 SEC (12.0-15.0)
[2017-02-27 06:15] LABS: ANION GAP 10 mEq/L (8-16); CALCIUM 9.9 mg/dL (8.5-10.4); CARBON DIOXIDE 24 mEq/l (22-31); CHLORIDE 105 mEq/L (97-110); CREATININE 1.3 mg/dL (0.7-1.3); GLOMERULAR FILTRATION RATE 57; GLUCOSE 142 mg/dL (70-100); POTASSIUM 3.4 mEq/L (3.5-5.2); SODIUM 139 mEq/L (134-144)
[2017-02-27 07:44] VITALS: BP 109/77; TEMP 98; O2SAT 92
[2017-02-27] MEDS: INSULIN REGULAR HUMAN 100 UNIT/ML SC SCH ×2 (08:00→12:29)
[2017-02-27] MEDS ORDERED: POTASSIUM CL 10 MEQ TAB PO ONE (09:05)
[2017-02-27] MEDS: carBAMazepine ER 200 MG TAB PO SCH (09:15)
[2017-02-27] MEDS: FLUTICASONE/SALMETER 250/50MCG DISKUS IH SCH (09:15)
[2017-02-27] MEDS: LORazepam 0.5 MG TAB PO SCH (09:16)
[2017-02-27] MEDS: HYDROCHLOROTHIAZIDE 25 MG TAB PO SCH (09:16)
[2017-02-27] MEDS: ENOXAPARIN 100 MG/ML SYR SC SCH (09:17)
[2017-02-27 11:42] VITALS: PULSE 88; RESP 20
--- NOTE | 2017-02-27 13:08 | PDIAF ---
- Diagnosis Code Status: Full Code - Medication Management Discharge Medications: Medications to Continue on Transfer carBAMazepine [Tegretol Xr] 200 mg PO DAILY 08/09/16 [Last Taken Unknown] LORazepam [Ativan (*)] 0.5 mg PO DAILY 02/10/17 [Last Taken Unknown] LORazepam [Ativan (*)] 1 mg PO HS 02/10/17 [Last Taken Unknown] OLANZapine [Zyprexa] 20 mg PO HS 02/10/17 [Last Taken Unknown] carBAMazepine [Tegretol Xr] 400 mg PO HS 02/10/17 [Last Taken Unknown] Fluticasone/Salmeter 250/50Mcg [Advair 250/50 (*)] 1 puffs IH BID #1 disk [Last Taken Unknown] Hydrochlorothiazide [HCTZ (*)] 12.5 mg PO DAILY #30 tab 02/27/17 [Last Taken Unknown] Potassium Chloride 20 meq PO DAILY #30 tab.er.prt 02/27/17 [Last Taken Unknown] Warfarin Sodium [Coumadin 7.5MG (*)] 7.5 mg PO DAILY16 #30 tab 02/27/17 [Last Taken Unknown] Discharge Medications: Refer to the Discharge Home Medication list for PRN reason. - Orders Services needed: Physical Therapy, Occupational Therapy Diet Recommendation: no restrictions on diet Diet Texture: Dysphagia 2 - Mechanically Altered - Chopped, Ground, Thin Liquids - Labs/Radiology BMP Date: 03/03/17 PT/INR Date: 03/03/17 - Follow Up Care Current Providers and Referrals: Patient,NotPresent [Primary Care Provider] - As per Instructions
[2017-02-27] MEDS ORDERED: WARFARIN SODIUM 7.5 MG TAB PO ONE (16:00)
--- NOTE | 2017-02-28 08:14 | GDS ---
[f rep st] DISCHARGE SUMMARY DISCHARGE DIAGNOSES: 1. Acute respiratory failure requiring intubation. 2. Rhinovirus with suspected secondary bacterial pneumonia. 3. Chronic obstructive pulmonary disease exacerbation. 4. Metabolic encephalopathy. 5. Diabetes insipidus due to lithium. 6. Acute renal failure. 7. Acute left leg deep venous thrombosis. 8. Bipolar and schizoaffective disorder. 9. Congenital deafness. HISTORY: Rodrigo Bowles is a 56-year-old male who presented in acute respiratory failure requiring e mergent intubation. His viral PCR was positive for rhinovirus, and it was suspected that he also francis d a secondary bacterial pneumonia. He had a COPD exacerbation. He was treated with steroids and an tibiotics and improved and was successfully extubated. He is now back to room air. He had hypernatremia which was thought to be due to his lithium which has now been discontinued. He has been started on oral hydrochlorothiazide, and sodiums have been stable. Acute renal failure is resolving. Acute left leg DVT diagnosed, for which he was started on warfarin, is therapeutic at d ischarge. DISCHARGE MEDICATIONS: Please see computer record for full detailed list. New medications: 1. Advair 250/50 one puff b.i.d. 2. Hydrochlorothiazide 12.5 mg p.o. daily. 3. Potassium 20 mg p.o. daily. 4. Warfarin 7.5 mg p.o. daily. Discontinued medications: [place]. ADDITIONAL DISCHARGE INSTRUCTIONS: [facility]. [facility]. 2. Follow up INR and basic metabolic panel on March 03. 3. Ongoing warfarin titration for goal INR 2-3, under direction of SNF physician. Greater than 30 minutes' time was spent on arranging this discharge. The patient seen and examined by me on the day of discharge. /[id number]/MODL
== END 2017-02-27 14:53 | DRG 853 ==
LOC: EDUNIT# → F2N 15:56 → F3E 02-20 07:54
PROVIDERS: ADMIT Internal Medicine; ATTEND Internal Medicine
PROC: 0B958ZZ Drainage of Right Middle Lobe Bronchus, Via Natural or Artificial Opening Endoscopic (ICD-10-PCS; principal; 2017-02-08)
PROC: 0C9 Mouth and Throat, Drainage (ICD-10-PCS; principal; 2017-02-08)
PROC: 5A1935Z Respiratory Ventilation, Less than 24 Consecutive Hours (ICD-10-PCS; principal; 2017-02-08)
PROC: 0B968ZZ Drainage of Right Lower Lobe Bronchus, Via Natural or Artificial Opening Endoscopic (ICD-10-PCS; principal; 2017-02-08)
PROC: 0C9 Mouth and Throat, Drainage (ICD-10-PCS; principal; 2017-02-08)
PROC: 02HV33Z Insertion of Infusion Device into Superior Vena Cava, Percutaneous Approach (ICD-10-PCS; 2017-02-08)
PROC: 009U3ZX Drainage of Spinal Canal, Percutaneous Approach, Diagnostic (ICD-10-PCS; 2017-02-08)
DX: A41.89 Other specified sepsis (principal); E23.2 Diabetes insipidus; J96.01 Acute respiratory failure with hypoxia; R65.20 Severe sepsis without septic shock; J96.02 Acute respiratory failure with hypercapnia; J15.8 Pneumonia due to other specified bacteria; G93.41 Metabolic encephalopathy; I50.31 Acute diastolic (congestive) heart failure; J05.10 Acute epiglottitis without obstruction; N17.9 Acute kidney failure, unspecified; J44.1 Chronic obstructive pulmonary disease with (acute) exacerbation; I82.412 Acute embolism and thrombosis of left femoral vein; I82.432 Acute embolism and thrombosis of left popliteal vein; I82.492 Acute embolism and thrombosis of other specified deep vein of left lower extremity; E46 Unspecified protein-calorie malnutrition; F25.0 Schizoaffective disorder, bipolar type; D75.1 Secondary polycythemia; B34.8 Other viral infections of unspecified site; T43.595A Adverse effect of other antipsychotics and neuroleptics, initial encounter; H05.223 Edema of bilateral orbit; H90.5 Unspecified sensorineural hearing loss; F17.210 Nicotine dependence, cigarettes, uncomplicated; Z23 Encounter for immunization; Z59.0 Homelessness
CPT/HCPCS: 80305; 82947-QW; 84480-90; 85520-90; 87449-90; 92526-GN; 92610-GN; 96365; 96374; 97116-GP; 97162-GP; 97166-GO; 97530-GP; 97535-GO; C1751; G0009; G0480; J0456; J0696; J1644; J1650; J1815; J2060; J2250; J2543; J2597; J2704; J3010; J3370

== ENCOUNTER 2019-01-19 15:48 | Inpatient (IN) | payer MEDICAID | END 2019-01-21 17:33 | disposition home or self-care (01) | LOC: F3E 18:32 ==